=== PATIENT | female | born 1975 | race Caucasian/White ===

== ENCOUNTER 2017-11-28 09:37 | Emergency (ER) | payer MEDICAID, SELFPAY ==
[2017-11-28 09:38] VITALS: BP 110/70; PULSE 93; RESP 18; TEMP 36.6; O2SAT 98; BMI 24.4
--- NOTE | 2017-11-28 09:56 | ED.VISSUMM ---
- ER Visit Summary Date of Service: 11/28/17 Chief Complaint: Hives and facial swelling this morning History of Present Illness: The patient is a 41 F who reports she has had hives since Saturday. She was seen at the [facility] on November 25. The documentation of the visit was read. She was treated with a Kenalog injection and tapering dose of prednisone. Patient states this morning she awoke with facial swelling and hives. She took a Benadryl tablet. The facial swelling and hives resolved but she is still complaining of itching. She denies any swelling of her lips, tongue or throat. She denied any change in voice or difficulty swallowing. She denies any chest pain or shortness of breath. She denied nausea, vomiting or diarrhea. She denies orthostatic symptoms. She is concerned because she has bruises. She is on no new medicine. She has not had any fruit, varies or shellfish in the past several days. Physical Examination: Vital signs are normal. She is not hypoxic. There is no evidence of angioedema. No hives are noted. Head is atraumatic normocephalic. Pupils are equal round reactive. Extraocular muscles are intact. TMs are pearly white with landmarks noted. Nares patent with no drainage. Posterior pharynx without erythema or exudate. Uvula is midline. There is no dysphonia or dysphasia. Trachea is midline. There is no stridor with auscultation of the neck. Heart is regular without murmur, gallop or rub. S1 and S2 are normal. Lungs are clear to auscultation with good movement of air bilaterally. Abdomen is soft nontender. Patient has multiple areas of excoriation and bruising secondary to scratching. There is no evidence of hives or angioedema. Test Results: Count is 13.8 with no eosinophilia. Hepatic profile is normal. Emergency Department Course and Treatment: CBC was obtained to assess platelet count and to determine if there is any eosinophilia. Because she reports darker colored urine Paddock was obtained to assess ALT AST and bilirubin. Treatment Plan: Patient was instructed to keep a diary with regards to what she eats and when she develops hives. She was instructed to follow-up with her primary care physician. She was instructed to return if she has swelling of her lips, tongue or throat or any difficulty breathing. He was reevaluated and she has no rash and she is no longer itching. Disposition: Discharge to home in stable and improved condition Impression: Pruritus and hives of unknown etiology This note was generated with [employer] dictation software. It may contain incorrect words, spelling, and punctuation that were not noted in review of the chart prior to signing ED Disposition - Plan for ED Patient: Disposition: Home or Assisted Living Chief Complaint: Allergic Reaction Instructions: ED Urticaria Referrals: Camila Mercado MD [Primary Care Provider] - 1 Week
--- NOTE | 2017-11-28 10:00 | ED.DCSUM_ITS ---
- ER Visit Summary Date of Service: 11/28/17 Chief Complaint: Hives and facial swelling this morning History of Present Illness: The patient is a 41 F who reports she has had hives since Saturday. She was seen at the [facility] clinic on November 25. The documentation of the visit was read. She was treated with a Kenalog injection and tapering dose of prednisone. Patient states this morning she awoke with facial swelling and hives. She took a Benadryl tablet. The facial swelling and hives resolved but she is still complaining of itching. She denies any swelling of her lips, tongue or throat. She denied any change in voice or difficulty swallowing. She denies any chest pain or shortness of breath. She denied nausea, vomiting or diarrhea. She denies orthostatic symptoms. She is concerned because she has bruises. She is on no new medicine. She has not had any fruit, varies or shellfish in the past several days. Physical Examination: Vital signs are normal. She is not hypoxic. There is no evidence of angioedema. No hives are noted. Head is atraumatic normocephalic. Pupils are equal round reactive. Extraocular muscles are intact. TMs are pearly white with landmarks noted. Nares patent with no drainage. Posterior pharynx without erythema or exudate. Uvula is midline. There is no dysphonia or dysphasia. Trachea is midline. There is no stridor with auscultation of the neck. Heart is regular without murmur, gallop or rub. S1 and S2 are normal. Lungs are clear to auscultation with good movement of air bilaterally. Abdomen is soft nontender. Patient has multiple areas of excoriation and bruising secondary to scratching. There is no evidence of hives or angioedema. Test Results: Count is 13.8 with no eosinophilia. Hepatic profile is normal. Emergency Department Course and Treatment: CBC was obtained to assess platelet count and to determine if there is any eosinophilia. Because she reports darker colored urine Paddock was obtained to assess ALT AST and bilirubin. Treatment Plan: Patient was instructed to keep a diary with regards to what she eats and when she develops hives. She was instructed to follow-up with her primary care physician. She was instructed to return if she has swelling of her lips, tongue or throat or any difficulty breathing. He was reevaluated and she has no rash and she is no longer itching. Disposition: Discharge to home in stable and improved condition Impression: Pruritus and hives of unknown etiology This note was generated with [employer] dictation software. It may contain incorrect words, spelling, and punctuation that were not noted in review of the chart prior to signing ED Disposition - Plan for ED Patient: Disposition: Home or Assisted Living Chief Complaint: Allergic Reaction Instructions: ED Urticaria Referrals: Camila Mercado MD [Primary Care Provider] - 1 Week
[2017-11-28 10:07] LABS: Absolute Lymphocyte Count 0.81 X10^3/ul (0.83-4.51); Basophil# 0.01 X10^3/uL; Basophil% 0.1 % (0-1); Hemoglobin 11.2 g/dl (12.0-15.0); Lymphocyte # 0.81 X10^3/ul (4.0); Lymphocyte % 5.9 % (19-41); Mean Corp Hgb Conc 33.9 g/gl (32-36); Mean Corpuscular Hgb 32.5 pg (27.0-32.0); Mean Corpuscular Volume 95.7 fL (81-99); Mean Platelet Vol. 8.7 fl (6.2-12.0); Monocyte# 0.96 X10^3/uL; Neutrophil # 11.97 X10^3/uL (2.7-7.7); Neutrophil % 86.6 % (47-70); Platelet Count 338 K/mm3 (150-450); RBC Distribution Width CV 13.6 % (11.6-14.6); RBC Distribution Width SD 45.2 fl (35.1-43.9); Red Blood Count 3.45 M/mm3 (4.2-5.4); White Blood Count 13.8 K/mm3 (4.4-11.0)
[2017-11-28 10:08] LABS: POSITIVE COUNT NO; POSITIVE DIFFERENTIAL NO; POSITIVE MORPHOLOGY NO
[2017-11-28 10:24] LABS: AST(SGOT) 16 U/L (15-37); Alanine Aminotransfer ALT/SGPT 24 U/L (13-56); Alkaline Phosphatase 73 U/L (45-117); Globulin 3.1 g/dL (2.2-4.2); Protein, Total 6.1 g/dL (6.4-8.2)
== END 2017-11-28 12:25 | disposition home or self-care (01) ==
PROVIDERS: Emergency Provider Emergency Medicine; Family Provider Family Medicine; PCP Family Medicine
DX: L29.9 Pruritus, unspecified (principal); L50.9 Urticaria, unspecified; Z72.0 Tobacco use; Z79.899 Other long term (current) drug therapy
CPT/HCPCS: 80076; 85025; 99282

== ENCOUNTER 2018-02-12 19:23 | Emergency (ER) | payer MEDICAID, SELFPAY ==
[2018-02-12 19:23] VITALS: BP 139/75; PULSE 111; RESP 16; TEMP 36.9; O2SAT 98; BMI 23.8
--- NOTE | 2018-02-12 19:36 | CT_ITS ---
STUDY: CT ABDOMEN AND PELVIS WITH CONTRAST REASON FOR EXAM: Female, 42 years old. Left lower quadrant abdominal pain RADIATION DOSAGE (If Supplied By Facility): CTDIvol = ( 8.89 ) mGy, DLP = ( 373.12 ) mGycm TECHNIQUE: Transaxial images were obtained from the dome of the diaphragm to the symphysis pubis without oral contrast. 100ML ml of Isovue 300 contrast was administered. Sagittal and coronal images were reconstructed. Individualized dose optimization techniques were used for this CT. COMPARISON: None. FINDINGS: Patchy groundglass opacities at the lung bases. The visualized portions of the heart are within normal limits. Normal liver. Normal gallbladder and extrahepatic biliary system. Normal spleen. Normal pancreas. Normal bilateral adrenal glands. Normal right kidney. Normal left kidney. Normal visualized stomach. Normal small intestine. Normal colon. The appendix is visualized and appears normal. Normal abdominal aorta. Normal inferior vena cava. Normal retroperitoneum. Normal urinary bladder. Bilateral effusions or tubes. Normal abdominal wall. Normal osseous structures. CT/Abdomen/Pelvis WITH Contrast IMPRESSION: No acute disease to explain left lower quadrant pain. Electronically Signed: Marino Miranda MD at 22:00 EDT , Service support ,
--- NOTE | 2018-02-12 19:36 | ED.VISSUMM ---
- ER Visit Summary Date of Service: 02/12/18 Chief Complaint: Abdominal pain History of Present Illness: The patient is a 42 F presenting with abdominal pain. She states this started this afternoon. She has pain in the epigastric and left upper and lower quadrant. She denies nausea, vomiting, diarrhea, constipation. Denies urinary complaints. Denies possibility of . Denies fever. She has not had these symptoms in the past. She states she occasionally drinks alcohol, she is a smoker. Physical Examination: Vitals are stable. Patient is afebrile. Alert no acute distress. HEENT exam is unremarkable. Neck is supple. Lungs are clear and equal bilaterally. Heart is regular and tachycardic Abdomen is soft epigastric and left upper and left lower quadrant tenderness, no rebound or guarding. Extremities are unremarkable. Skin is warm and dry. No focal neurologic deficit. Remainder of exam is unremarkable. Emergency Department Course and Treatment: Patient given IV fluids, morphine, Zofran. CBC chemistries normal except for potassium 3.1. She is given potassium oral replacement. Liver lipase are normal. Urinalysis is unremarkable. CT of the abdomen pelvis with IV and oral contrast shows no acute process. On reevaluation, she is resting comfortably. She is given a prescription for Pepcid. She is advised to follow-up with her primary care physician. She is advised return to the ED for worsening complaints. Disposition: Discharge home Impression: Abdominal pain This note was generated with [employer] dictation software. It may contain incorrect words, spelling, and punctuation that were not noted in review of the chart prior to signing ED Disposition - Plan for ED Patient: Chief Complaint: Abd Pain Referrals: Camila Mercado MD [NON-STAFF] -
[2018-02-12] MEDS: Morphine 4 MG/ML Syringe IV ×2 (19:49→20:20)
[2018-02-12] MEDS: 0.9% Normal Saline 1,000 ML 1000 ML IV (19:49)
[2018-02-12] MEDS: Ondansetron 4 MG/2 ML Vial IV (19:50)
[2018-02-12 20:02] LABS: Absolute Lymphocyte Count 2.73 X10^3/ul (0.83-4.51); Absolute Neutrophil Count 4.9 X10^3/uL (2.0-7.7); Basophil# 0.05 X10^3/uL; Basophil% 0.6 % (0-1); Eosinophil# 0.35 X10^3/uL; Hematocrit 38.4 % (37-47); Hemoglobin 12.9 g/dl (12.0-15.0); Lymphocyte # 2.73 X10^3/ul (4.0); Lymphocyte % 31.4 % (19-41); Mean Corp Hgb Conc 33.6 g/gl (32-36); Mean Corpuscular Hgb 31.7 pg (27.0-32.0); Mean Corpuscular Volume 94.3 fL (81-99); Mean Platelet Vol. 9.3 fl (6.2-12.0); Monocyte# 0.68 X10^3/uL; Monocyte% 7.8 % (0-10); Neutrophil # 4.87 X10^3/uL (2.7-7.7); Neutrophil % 56.1 % (47-70); Platelet Count 255 K/mm3 (150-450); RBC Distribution Width CV 13.7 % (11.6-14.6); RBC Distribution Width SD 47.6 fl (35.1-43.9); Red Blood Count 4.07 M/mm3 (4.2-5.4); White Blood Count 8.7 K/mm3 (4.4-11.0)
[2018-02-12 20:03] LABS: POSITIVE COUNT NO; POSITIVE DIFFERENTIAL NO
[2018-02-12 20:04] LABS: POSITIVE MORPHOLOGY NO
[2018-02-12 20:17] LABS: AST(SGOT) 19 U/L (15-37); Alanine Aminotransfer ALT/SGPT 19 U/L (13-56); Albumin, Serum 3.6 g/dL (3.2-5.0); Alkaline Phosphatase 65 U/L (45-117); Anion Gap 6 (5-15); BUN 8 mg/dL (7-18); BUN/Creat Ratio 9.3 RATIO (10-20); Bilirubin, Direct 0.11 mg/dL (0.00-0.30); Calcium,Total 8.9 mg/dL (8.5-10.1); Chloride 107 mmol/L (98-107); Creatinine, Serum 0.86 mg/dL (0.55-1.02); EST Glomerular Filtration Rate 78 mL/min (>60); Est Glom Filt Rate - Afr Amer 94 mL/min (>60); Estimated Creatinine Clearance 62.46 ml/min; Globulin 3.2 g/dL (2.2-4.2); Glucose 90 mg/dL (74-106); Lipase 206 U/L (73-393); Potassium 3.1 mmol/L (3.5-5.1); Protein, Total 6.8 g/dL (6.4-8.2); Sodium Level 141 mmol/L (136-145)
[2018-02-12 20:52] LABS: Bacteria 0 SEEN /hpf (None Seen); Color, Urine Straw (Yellow); Glucose, Dipstick Normal (Normal); Ketone-Dipstick Negative (Negative); Leukocyte Esterase-Dipstick Negative /ul (Negative); Mucous, Urine 0 SEEN /hpf (<or=2+); Nitrite-Dipstick Negative (Negative); Occult Blood-Urine Negative /ul (Negative); Protein-Dipstick Negative (Negative); Red Blood Cells-Urine 0 SEEN /hpf (0-5); Urine Bilirubin Dipstick Negative (Negative); Urine Clarity Clear (Clear); Urine Urobilinogen Normal (Normal); White Blood Cells 0 SEEN /hpf (0-5)
[2018-02-12 21:04] LABS: Squamous Epithelial Cells - UA 0-5 SEEN /hpf (5-10)
[2018-02-12 21:32] VITALS: BP 107/74; RESP 16
--- NOTE | 2018-02-12 22:16 | ED.DEP ---
ED Disposition - Plan for ED Patient: Chief Complaint: Abd Pain Instructions: ED Abdominal Pain Unkn Cause Prescriptions: Famotidine [Pepcid] 20 mg PO BID #28 tablet Referrals: Camila Mercado MD [NON-STAFF] - Cornelius Erwin MD [Primary Care Provider] -
[2018-02-12 22:25] VITALS: BP 102/68
== END 2018-02-12 22:27 | disposition home or self-care (01) ==
LOC: ED 19:42
PROVIDERS: Emergency Provider Emergency Medicine; Family Provider Family Medicine; PCP Family Medicine
DX: R10.13 Epigastric pain (principal); R10.32 Left lower quadrant pain; R10.12 Left upper quadrant pain; G89.29 Other chronic pain; M54.2 Cervicalgia; F17.200 Nicotine dependence, unspecified, uncomplicated; Z79.899 Other long term (current) drug therapy
CPT/HCPCS: 74177; 80048; 80076; 81001; 83690; 85025; 96361; 96374; 96375; 96376; 99284; J7030; Q9967; J2405

== ENCOUNTER 2018-09-22 14:53 | Emergency (ER) | payer MEDICAID, SELFPAY ==
[2018-09-22 14:54] VITALS: BP 117/63; PULSE 100; RESP 16; TEMP 36.4; O2SAT 97; BMI 24.4
[2018-09-22 15:16] VITALS: O2SAT 97
--- NOTE | 2018-09-22 15:19 | EKG12_ITS ---
Test Reason : COUGH Blood Pressure : / mmHG Vent. Rate : 080 BPM Atrial Rate : 080 BPM P-R Int : 158 ms QRS Dur : 096 ms QT Int : 390 ms P-R-T Axes : 078 070 049 degrees QTc Int : 449 ms Normal sinus rhythm Normal ECG Confirmed by FABIAN BAUMAN, LAURIE ([id number]), editorial project manager BRAEDEN TRAYLOR ([id number]) on 09/26/2018 10:47:38 AM Referred By: RYAN Confirmed By:LAURIE PERALTA MD
--- NOTE | 2018-09-22 15:25 | ED.DCSUM_ITS ---
- ER Visit Summary Date of Service: 09/22/18 Chief Complaint: [] Cough subcostal chest tightness for 2 weeks History of Present Illness: The patient is a 42 F [] she reports cough for 2 weeks productive with occasional thick mucus and a sense of subcostal chest tightness, no fever no abdominal pain history of MT PE DVT she indicates she is here with her teenage daughter decided to check him to be evaluated, she does smoke and has no history of COPD or asthma does report distant history of asthma resting comfortably bed now no distress Physical Examination: [] 122/80, 100% pulse ox afebrile General, no distress resting comfortably HEENT is generally unremarkable The neck is supple no adenopathy Cardiovascular, regular rate and rhythm Lungs, clear bilateral there is minimal scattered wheezing good excursion no distress Abdomen, soft nontender she indicates that time she has had what she describes as a subcostal sense of tightness in her chest palpation of the abdomen is completely nontender palpation of the chest is unremarkable Extremities, no clubbing cyanosis or edema Neurologic, awake alert answering questions appropriately moving all 4 extremities Test Results: [] Emergency Department Course and Treatment: [] Complaint screening labs obtained chest x-ray D-dimer returned slightly elevated at 0.55 she really have no risk factors for DVT or PE given that test result CTA was done that was unremarkable for signs of pneumonia dissection or PE all of her other labs are generally unremarkable white count 15,000 EKG showed a sinus rhythm nothing acute I have explained test results to her now is from the cough is likely from a URI there is no signs of active pneumonia or pulmonary infectious process she will be started on inhaler follow-up with her physicians and return for change in symptoms she is comfortable with this plan Treatment Plan: [] Disposition: [] Home stable Impression: [] Cough for 2 weeks URI This note was generated with [employer] software. It may contain incorrect words, spelling, and punctuation that were not noted in review of the chart prior to signing ED Disposition - Plan for ED Patient: Chief Complaint: Cough Referrals: Cornelius Erwin MD [Primary Care Provider] -
[2018-09-22 15:32] VITALS: PULSE 82; RESP 14
[2018-09-22] MEDS: Ipratropium/Albuterol Sulfate 3 ML AMPUL.NEB INHALATION (15:32)
[2018-09-22] MEDS: 0.9% Normal Saline 1,000 ML 150 ML IV (15:36)
--- NOTE | 2018-09-22 15:45 | RAD_ITS ---
STUDY: X-RAY CHEST REASON FOR EXAM: Female, 42 years old. Cough TECHNIQUE: PA and lateral views of the chest. COMPARISON: 07/28/2017 FINDINGS: EKG leads overlie the chest The lungs are clear and expanded. There is no demonstrated pleural abnormality. Normal size heart. Normal mediastinum and beau. Normal visualized pulmonary arteries. Normal visualized aortic arch and descending thoracic aorta. Normal visualized thoracic spine. Normal visualized ribs, clavicles, and shoulders. There is no demonstrated abnormality of the visualized soft tissue structures of the upper abdomen. RAD/Chest PA and Lateral IMPRESSION: Normal x-ray examination of the chest. Electronically Signed: Jorge Gordon MD at 16:00 EST , Service support ,
[2018-09-22 15:47] LABS: Absolute Neutrophil Count 11.5 X10^3/uL (2.0-7.7); Basophil# 0.07 X10^3/uL; Basophil% 0.5 % (0-1); Eosinophil# 0.38 X10^3/uL; Eosinophils% 2.5 % (0-5); Hematocrit 39.3 % (37-47); Lymphocyte % 15.1 % (19-41); Mean Corp Hgb Conc 33.1 g/gl (32-36); Mean Corpuscular Hgb 31.5 pg (27.0-32.0); Mean Corpuscular Volume 95.2 fL (81-99); Mean Platelet Vol. 9.1 fl (6.2-12.0); Monocyte# 0.92 X10^3/uL; Neutrophil # 11.53 X10^3/uL (2.7-7.7); Neutrophil % 75.8 % (47-70); Platelet Count 276 K/mm3 (150-450); RBC Distribution Width CV 13.8 % (11.6-14.6); RBC Distribution Width SD 47.8 fl (35.1-43.9); Red Blood Count 4.13 M/mm3 (4.2-5.4); White Blood Count 15.2 K/mm3 (4.4-11.0)
[2018-09-22 15:48] LABS: POSITIVE COUNT NO; POSITIVE DIFFERENTIAL NO; POSITIVE MORPHOLOGY NO
[2018-09-22 16:04] LABS: Anion Gap 9 (5-15); BUN 12 mg/dL (7-18); BUN/Creat Ratio 12.8 RATIO (10-20); Calcium,Total 8.7 mg/dL (8.5-10.1); Chloride 107 mmol/L (98-107); Creatinine, Serum 0.93 mg/dL (0.55-1.02); EST Glomerular Filtration Rate 70 mL/min (>60); Est Glom Filt Rate - Afr Amer 85 mL/min (>60); Estimated Creatinine Clearance 57.76 ml/min; Glucose 107 mg/dL (74-106); Potassium 3.2 mmol/L (3.5-5.1); Sodium Level 142 mmol/L (136-145)
[2018-09-22 16:07] LABS: D-Dimer Quantitative (DVT/PE) 0.55 FEU/ug/m (0.27-0.49)
--- NOTE | 2018-09-22 16:08 | ED.RN ---
D-DIMER 0.55. AWARE.
--- NOTE | 2018-09-22 16:11 | CT_ITS ---
STUDY: CTA CHEST REASON FOR EXAM: Female, 42 years old. Worsening cough, chest pain, elevated d-dimer RADIATION DOSAGE (If Supplied By Facility): CTDIvol = ( 4.37 ) mGy, DLP = ( 154.90 ) mGycm TECHNIQUE: The examination was performed with the intravenous administration of 75ml ml of Isovue 370 contrast material. Post-processing of the angiographic images was performed, with multiplanar reformation and 3D reconstruction. Individualized dose optimization techniques were used for this CT. COMPARISON: None. FINDINGS: Normal enhancement of the main pulmonary artery and right and left pulmonary arteries. Normal enhancement of the bilateral peripheral pulmonary arteries. There is no demonstrated pulmonary embolism. Normal thoracic aorta and visualized great vessels. There is no demonstrated aortic dissection. Normal heart and pericardium. Normal mediastinum. Normal hilar regions. Normal visualized trachea and bronchi. The lungs are well expanded. Normal pulmonary parenchyma. Normal pleura. Normal chest wall structures. Normal osseous structures. Normal visualized upper abdomen. CT/CTA Chest W/WO Contrast IMPRESSION: Normal CTA chest examination, without a demonstrated pulmonary embolism or arterial dissection. Electronically Signed: Jorge Gordon MD at 17:40 EST , Service support ,
[2018-09-22 16:18] LABS: BNP,B-Type NATRIURETIC PEPTIDE 17.2 pg/mL (0-100)
[2018-09-22 17:01] VITALS: PULSE 79; RESP 17; O2SAT 100
[2018-09-22 17:14] VITALS: BP 104/60
--- NOTE | 2018-09-22 17:53 | ED.DEP ---
ED Disposition - Plan for ED Patient: Chief Complaint: Cough Prescriptions: Albuterol Inhaler [Ventolin Hfa] 1 - 2 puff INHALATION Q4H PRN PRN #1 inhaler PRN Reason: Wheezing Referrals: Cornelius Erwin MD [Primary Care Provider] -
--- NOTE | 2018-09-22 17:56 | ED.DEP ---
ED Disposition - Plan for ED Patient: Chief Complaint: Cough Instructions: ED Upper Resp Infec No Abx Tx Prescriptions: Albuterol Inhaler [Ventolin Hfa] 1 - 2 puff INHALATION Q4H PRN PRN #1 inhaler PRN Reason: Wheezing Referrals: Cornelius Erwin MD [Primary Care Provider] -
[2018-09-22 18:11] VITALS: BP 98/60; PULSE 100; RESP 25; O2SAT 98
--- OUTSIDE RECORDS SUMMARY | 2018-11-08 21:49 | XMS RPT_ITS ---
:1975 Author Organization OHIP Support Name Relationship Address Phone DEEPAK FLORES Unavailable [address] + [place] [address] VASILIY, BILL Unavailable [address] + [place] [address] UE Unavailable Unavailable Unavailable DEEPAK FLORES Unavailable [address] + [place] [address] VASILIY, BILL Unavailable [address] + [place] [address] UE Unavailable Unavailable Unavailable DEEPAK FLORES Unavailable [address] + [place] [address] [facility] Unavailable [address], [address] + [place] [address] VASILIY, BILL Unavailable [address] + [place] [address] DEEPAK FLORES Unavailable [address] + [place] [address] [facility] Unavailable [address], [address] + [place] [address] VASILIY, BILL Unavailable [address] + [place] [address] DEEPAK FLORES Unavailable [address] + [place] [address] [facility] Unavailable [address], [address] + [place] [address] VASILIY, BILL Unavailable [address] + [place] [address] BIERLEIN, DEEPAK Unavailable [address] + [place] [address] [facility] Unavailable [address], [address] + [place] [address] VASILIY, BILL Unavailable [address] + [place] [address] DEEPAK FLORES Unavailable [address] + [place] [address] [facility] Unavailable [address] + [address] [address] VASILIY, BILL Unavailable [address] + [place] [address] Care Team Providers Name Role Phone SLICK ERWIN) Attending Unavailable SLICK ERWIN) Referring Unavailable TALIA ALICEA Attending Unavailable CHAITANYA PRAKASH Marine Attending Unavailable TALIA ALICEA Referring Unavailable CHAITANYA, PRAKASH C Referring Unavailable CHAITANYA, PRAKASH C Attending Unavailable CHAITANYA, PRAKASH C Referring Unavailable CHAITANYA, PRAKASH C Referring Unavailable CHAITANYA, PRAKASH C Referring Unavailable DORSEYMANUELI Attending Unavailable CHAITANYA, PRAKASH C Referring Unavailable CHAITANYA, PRAKASH C Admitting Unavailable CHAITANYA, PRAKASH C Attending Unavailable JORDYN LOPEZ (PA-C) Attending Unavailable SLICK ERWIN) Attending Unavailable CHAITANYA, PRAKASH C Attending Unavailable SLICK ERWIN) Referring Unavailable BRITTANY WARD (POURER CRANE LADLE) Attending Unavailable SLICK ERWIN) Attending Unavailable SLICK ERWIN) Referring Unavailable Cornelius Erwin Primary Care Unavailable Elizabeth Monk Attending Unavailable Cornelius Erwin Primary Care Unavailable Cartagena, Caio Attending Unavailable Rogerio Knutson Attending Unavailable Rogelio, Camila Referring Unavailable Mercado, Camila Primary Care Unavailable Mercado, Camila Primary Care Unavailable Cartagena, Caio Attending Unavailable Bal Saucedo Attending Unavailable Camila Mercado Referring Unavailable Rogelio, Camila Primary Care Unavailable Judith Macario Attending Unavailable Cornelius Erwin Primary Care Unavailable Bal Saucedo Attending Unavailable Rogelio, Camila Referring Unavailable Mercado, Camila Primary Care Unavailable PROBLEMS PROBLEMS DATE TYPE CONDITION / CODE ATTENDING STATUS SOURCE 01/20/2018 Active Encounter for other DORSEY, YAMILKA Active [facility] preprocedural [place] examination / Repository Z01.818(ICD-10) 01/20/2018 Active Unknown / PRAKASH GALE Active [facility] UNK(Unknown) [place] Repository 01/01/2018 Active Anal fistula / NA Active [facility] K60.3(ICD-10) [place] Repository 01/16/2018 Unknown J02.9 - Acute Bal Saucedo Active [place] pharyngitis, Community unspecified / Hospital J02.9(ICD-10) Repository 01/16/2018 Unknown B37.0 - Candidal Bal Saucedo Active [place] stomatitis / Community B37.0(ICD-10) Hospital Repository 12/04/2017 Active Pruritus, NA Active [facility] unspecified / [place] L29.9(ICD-10) Repository 12/04/2017 Active Candidal stomatitis NA Active [facility] / B37.0(ICD-10) [place] Repository 03/04/2018 Unknown R21 - Rash and Rogerio Knutson Active [place] other nonspecific Community skin eruption / Hospital R21(ICD-10) Repository 03/04/2018 Unknown L25.9 - Unspecified Rogerio Knutson Active [place] contact dermatitis, Community unspecified cause / Hospital L25.9(ICD-10) Repository PROCEDURES PROCEDURES No Procedure Records FoundRESULTS RESULTS EMERGENCY DEPARTMENT Observed: 11/03/2018 Status: F Source: [place] SUMMARY 1:32 PM [facility] RE[facility] Medical Records Department [address] [place] [address] Emergency Department Summary 11/03/18 1326 MR#: [id number] Acct: [id number] Name: DALIA BELLA Rep #: [id number] : 1975 42 From: Caio Cartagena MD PCP: Cornelius Erwin MD Status: PRE ER - ER Visit Summary Date of Service: 11/03/18 Chief Complaint: Instructed by spine surgeon to present to the emergency department History of Present Illness: The patient is a 42 F who sustained blunt head trauma on Saturday. There was no loss of conscious. She is not amnestic. He is on no anticoagulant. She does report transient blurred vision, which has resolved. She reports trouble with sleeping. She reports tingling in her hands and feet, which is a chronic condition. There is no change. She denied nausea or vomiting. She denies change in color urine. She has no other complaints. Physical Examination: Vital signs noted normal. Head is atraumatic normocephalic. Pupils are equal round reactive. Extraocular muscles are intact. TMs are pearly white with landmarks noted. Nares patent with no drainage. Posterior pharynx without erythema or exudate. Uvula is midline. There is no dysphonia or dysphasia. Trachea is midline. There is no stridor with auscultation of the neck. There is no midline neck pain. Heart is regular without murmur, gallop or rub. S1 and S2 are normal. Lungs are clear to auscultation with good movement of air bilaterally. Abdomen soft nontender. GCS is 15. Patient is alert and oriented 3. Motor is 5/5. Sensation is intact. DTRs are symmetric without clonus or Babinski. Cranial nerves II through XII are intact. Finger to nose to finger was performed adequately. Test Results: None were obtained Emergency Department Course and Treatment: Based on the Faulkner CT head rule and the [place] rule radiologic imaging is not indicated. Since she did not have neck pain initially radiologic imaging of the neck is not required either. Treatment Plan: Ice, avoid movement that causes pain and anti-inflammatory Disposition: Discharged home in stable condition Impression: 1. Concussion without loss of consciousness 2. Cervical strain secondary to blunt injury initial encounter This note was generated with TutorialTab dictation software. It may contain incorrect words, spelling, and punctuation that were not noted in review of the chart prior to signing ED Disposition - Plan for ED Patient: Disposition: Home or Assisted Living Chief Complaint: Fall Instructions: ED Concussion, ED Sprain Strain Neck Referrals: Cornelius Erwin MD [Primary Care Provider] - As Needed What to do if you have Problems For any increased pain, shortness of breath, bleeding, nausea or vomiting, chest pain, or any unexpected problems, contact your Primary Care Provider. Call [facility] ([phone]) or report to the closest Emergency Room. Call 911 if necessary. 11/03/18 1172 <Electronically signed by Caio Cartagena MD> Date Caio Mcintosh Signature (If Indicated): Date CC: Cornelius Erwin MD 12 LEAD ELECTROCARDIOGRAM Observed: 09/26/2018 Status: F Source: [place] 10:48 AM [facility] Cardiovascular Services [address] [place] [address] 12 Lead EKG 09/22/18 1542 MR#: [id number] Acct: [id number] Name: DALIA BELLA Rep #: [id number] : 1975 42 From: Blake Lundberg MD Attending Dr: Status: DEP ER Ordering Dr: Elizabeth Monk MD Date: 09/22/18 Location: ED Sex: F C Admitted: Test Reason : COUGH Blood Pressure : / mmHG Vent. Rate : 080 BPM Atrial Rate : 080 BPM P-R Int : 158 ms QRS Dur : 096 ms QT Int : 390 ms P-R-T Axes : 078 070 049 degrees QTc Int : 449 ms Normal sinus rhythm Normal ECG Confirmed by FABIAN BAUMAN, BLAKE ([id number]), video editor BRAEDEN TRAYLOR ([id number]) on 09/26/2018 10:47:38 AM Referred By: SJ Confirmed By:BLAKE LUNDBERG MD 09/26/18 1047 Date Blake Lundberg MD CC: MD Miles Monk; Cornelius Erwin MD Signed EMERGENCY DEPARTMENT Observed: 09/22/2018 Status: F Source: [place] SUMMARY 11:00 PM [facility] Medical Records Department [address] [place] [address] Emergency Department Summary 09/22/18 1522 MR#: [id number] Acct: [id number] Name: DALIA BELLA Rep #: [id number] : 1975 42 From: Elizabeth Monk MD PCP: Cornelius Erwin MD Status: DEP ER - ER Visit Summary Date of Service: 09/22/18 Chief Complaint: [] Cough subcostal chest tightness for 2 weeks History of Present Illness: The patient is a 42 F [] she reports cough for 2 weeks productive with occasional thick mucus and a sense of subcostal chest tightness, no fever no abdominal pain history of [place] PE DVT she indicates she is here with her teenage daughter decided to check him to be evaluated, she does smoke and has no history of COPD or asthma does report distant history of asthma resting comfortably bed now no distress Physical Examination: [] 122/80, 100% pulse ox afebrile General, no distress resting comfortably HEENT is generally unremarkable The neck is supple no adenopathy Cardiovascular, regular rate and rhythm Lungs, clear bilateral there is minimal scattered wheezing good excursion no distress Abdomen, soft nontender she indicates that time she has had what she describes as a subcostal sense of tightness in her chest palpation of the abdomen is completely nontender palpation of the chest is unremarkable Extremities, no clubbing cyanosis or edema Neurologic, awake alert answering questions appropriately moving all 4 extremities Test Results: [] Emergency Department Course and Treatment: [] Complaint screening labs obtained chest x-ray D-dimer returned slightly elevated at 0.55 she really have no risk factors for DVT or PE given that test result CTA was done that was unremarkable for signs of pneumonia dissection or PE all of her other labs are generally unremarkable white count 15,000 EKG showed a sinus rhythm nothing acute I have explained test results to her now is from the cough is likely from a URI there is no signs of active pneumonia or pulmonary infectious process she will be started on inhaler follow-up with her physicians and return for change in symptoms she is comfortable with this plan Treatment Plan: [] Disposition: [] Home stable Impression: [] Cough for 2 weeks URI This note was generated with View3ation software. It may contain incorrect words, spelling, and punctuation that were not noted in review of the chart prior to signing ED Disposition - Plan for ED Patient: Chief Complaint: Cough Referrals: Cornelius Erwin MD [Primary Care Provider] - What to do if you have Problems For any increased pain, shortness of breath, bleeding, nausea or vomiting, chest pain, or any unexpected problems, contact your Primary Care Provider. Call [facility] ([phone]) or report to the closest Emergency Room. Call 911 if necessary. 09/22/18 2300 <Electronically signed by Elizabeth Monk MD> Date Elizabeth Monk MD Cosigner Signature (If Indicated): Date CC: Cornelius Erwin MD DISCHARGE INSTRUCTION Observed: 09/22/2018 Status: F Source: [place] 5:57 PM [facility] Medical Records Department [address] [facility] [place] [place] [address] Discharge Instruction 09/22/181755 MR#: [id number] Acct: [id number] Name: DALIA BELLA Rep #: [id number] : 1975 42 From: Elizabeth Monk MD PCP: Cornelius Erwin MD Status: REG ER ED Disposition - Plan for ED Patient: Chief Complaint: Cough Instructions: ED Upper Resp Infec No Abx Tx Prescriptions: Albuterol Inhaler [Ventolin Hfa] 1 - 2 puff INHALATION Q4H PRN PRN #1 inhaler PRN Reason: Wheezing Referrals: Cornelius Erwin MD [Primary Care Provider] - What to do if you have Problems For any increased pain, shortness of breath, bleeding, nausea or vomiting, chest pain, or any unexpected problems, contact your Primary Care Provider. Call [facility] ([phone]) or report to the closest Emergency Room. Call 911 if necessary. 09/22/18 1757 <Electronically signed by Elizabeth Monk MD> Date Elizabeth Monk MD Cosigner Signature (If Indicated): Date _ CC: Cornelius Erwin MD DISCHARGE INSTRUCTION Observed: 09/22/2018 Status: F Source: [place] 5:54 PM [facility] Medical Records Department [address] [place] [address] Discharge Instruction 09/22/181752 MR#: [id number] Acct: [id number] Name: DALIA BELLA Rep #: [id number] : 1975 42 From: Elizabeth Monk MD PCP: Cornelius Erwin MD Status: REG ER ED Disposition - Plan for ED Patient: Chief Complaint: Cough Prescriptions: Albuterol Inhaler [Ventolin Hfa] 1 - 2 puff INHALATION Q4H PRN PRN #1 inhaler PRN Reason: Wheezing Referrals: Cornelius Erwin MD [Primary Care Provider] - What to do if you have Problems For any increased pain, shortness of breath, bleeding, nausea or vomiting, chest pain, or any unexpected problems, contact your Primary Care Provider. Call [facility] ([phone]) or report to the closest Emergency Room. Call 911 if necessary. 09/22/181753 <Electronically signed by Elizabeth Monk MD> Date Elizabeth Monk MD Cosigner Signature (If Indicated): Date CC: Cornelius Erwin MD CTA CHEST W/WO Observed: 09/22/2018 Status: F Source: [place] CONTRAST 4:12 PM [facility] Imaging [place] [address] CTA Chest W/WO Contrast MR#: [id number] Acct: [id number] Name: DALIA BELLA Rep #: [id number] : 1975 F 42 From: Steve Gordon MD PCP: Cornelius Erwin MD Status: REG ER Study: CTA Chest W/WO Contrast Date of Exam: 09/22/18 Exam# [id number] Ordering Dr: Elizabeth Monk MD STUDY: CTA CHEST REASON FOR EXAM: Female, 42 years old. Worsening cough, chest pain, elevated d-dimer RADIATION DOSAGE (If Supplied By Facility): CTDIvol = ( 4.37 ) mGy, DLP = ( 154.90 ) mGycm TECHNIQUE: The examination was performed with the intravenous administration of 75ml ml of Isovue 370 contrast material. Post-processing of the angiographic images was performed, with multiplanar reformation and 3D reconstruction. Individualized dose optimization techniques were used for this CT. COMPARISON: None. FINDINGS: Normal enhancement of the main pulmonary artery and right and left pulmonary arteries. Normal enhancement of the bilateral peripheral pulmonary arteries. There is no demonstrated pulmonary embolism. Normal thoracic aorta and visualized great vessels. There is no demonstrated aortic dissection. Normal heart and pericardium. Normal mediastinum. Normal hilar regions. Normal visualized trachea and bronchi. The lungs are well expanded. Normal pulmonary parenchyma. Normal pleura. Normal chest wall structures. Normal osseous structures. Normal visualized upper abdomen. CT/CTA Chest W/WO Contrast IMPRESSION: Normal CTA chest examination, without a demonstrated pulmonary embolism or arterial dissection. Electronically Signed: Jorge Gordon MD at 17:40 EST , Service support , CC: MD Miles Monk; Cornelius Erwin MD Cougar Hunter: Signed CBC W/DIFF, AUTOMATED Collected: 09/22/2018 Status: F Source: [place] 3:40 PM [facility]POS[facility] TYPE CODE TESTS RESULT OUT OF RANGE REFERENCE UNITS LAB L100.1000 4.4-11.0 K/mm3 High WBC 15.2 LAB L100.1200 4.2-5.4 M/mm3 Low RBC 4.13 LAB L100.1300 12.0-15.0 g/dl Normal HGB 13.0 LAB L100.1400 37-47 % Normal HCT 39.3 LAB L100.1500 81-99 fL Normal MCV 95.2 LAB L100.1600 27.0-32.0 pg Normal MCH 31.5 LAB L100.1700 32-36 g/gl Normal MCHC 33.1 LAB L100.1810 11.6-14.6 % Normal RDW CV 13.8 LAB L100.1820 35.1-43.9 fl High RDW SD 47.8 LAB L100.1900 150-450 K/mm3 Normal PLT 276 LAB L100.2000 6.2-12.0 fl Normal MPV 9.1 LAB L100.2100 47-70 % High NEUT% 75.8 LAB L100.2200 19-41 % Low LY% 15.1 LAB L100.2300 0-10 % Normal MONO% 6.0 LAB L100.2400 0-5 % Normal EO% 2.5 LAB L100.2500 0-1 % Normal BASO% 0.5 LAB L100.2550 0.0-0.9 % Normal IM GRAN % 0.100 Result Comment: IG% - Immature Granulocytes (promyelocytes, myelocytes and metamyelocytes) > 1% indicates that a LEFT SHIFT is Present. LAB L100.2620 2.0-7.7 X10 3/uL High Absolute Neut 11.5 LAB L100.2720 0.83-4.51 X10 3/ul Normal Absolute Lymph 2.30 Performed By: #### L100.0100 #### [facility] [place], [address] BASIC METABOLIC Collected: 09/22/2018 Status: F Source: [place] PROFILE (BMP) 3:40 PM [facility] TYPE CODE TESTS RESULT OUT OF RANGE REFERENCE UNITS LAB L501.0100 74-106 mg/dL High GLU 107 Result Comment: Fasting Glucose result from 100 to 125 mg/dL suggests IMPAIRED HOMEOSTASIS per A.D.A. criteria. Please note revised GLUCOSE reference range effective 2017. LAB L501.1000 7-18 mg/dL Normal BUN 12 LAB L501.1100 0.55-1.02 mg/dL Normal CREAT,SERUM 0.93 Result Comment: The validity of the calculated GFR AND GFRAA in patients over 70 years has not been determined. Clinical correlation is essential. LAB L501.1110 >60 mL/min Normal EST GFR 70 Result Comment: Non- GFR Calc LAB L501.1115 >60 mL/min Normal EST GFR - AA 85 Result Comment: GFR Calc LAB L501.1255 ml/min Normal Estimated CRCL 57.76 LAB L501.1300 10-20 RATIO Normal BUN/CRE 12.8 LAB L501.2200 8.5-10 mg/dL Normal .1 CA 8.7 LAB L501.5300 136-14 mmol/L Normal 5 NA 142 LAB L501.5600 3.5-5. mmol/L Low 1 K 3.2 LAB L501.5900 98-107 mmol/L Normal CL 107 LAB L501.6100 21.0-3 mmol/L Normal 2.0 CO2 26.0 LAB L501.6200 5-15 Normal GAP 9 Performed By: #### L500.2500 #### [facility] [place], [address] D-DIMER QUANTITATIVE Collected: 09/22/2018 Status: F Source: [place] (DVT/PE) 3:40 PM [facility] TYPE CODE TESTS RESULT OUT OF RANGE REFERENCE UNITS LAB L300.8000 0.27-0.49 FEU/ug/m High alert D-DIMER 0.55 QUANT Result Comment: D-Dimer ELEVATED (>0.49): Additional studies and clinical assessments are indicated to conclude diagnosis of: Deep Vein Thrombosis (DVT) or Pulmonary Embolism (PE) CRITICAL VALUE VERIFIED. CALLED TO MODESTO MAGDALENO 09/22/18 Mendoza Taylor. RESULTS READ BACK BY MODESTO . Performed By: #### L300.8000 #### [facility] [address] [place], [address] BNP,B-TYPE NATRIURETIC Collected: 09/22/2018 Status: F Source: [place]PTIDE 3:40 PM [facility] TYPE CODE TESTS RESULT OUT OF RANGE REFERENCE UNITS LAB L503.6620 0-100 pg/mL Normal B-TYPE 17.2 SANJEEV PEP Performed By: #### L503.6620 #### [facility] [address] [place], [address] CHEST PA AND LATERAL Observed: 09/22/2018 Status: F Source: [place] 3:20 PM [facility] Imaging Services [address] [place] [address] Chest PA and Lateral MR#: [id number] Acct: [id number] Name: DALIA BELLA Bautista Rep #: [id number] : 1975 F 42 From: Steve Gordon MD PCP: Cornelius Erwin MD Status: REG ER Study: Chest PA and Lateral Date of Exam: 09/22/18 Exam# [id number] Ordering Dr: Elizabeth Monk MD STUDY: X-RAY CHEST REASON FOR EXAM: Female, 42 years old. Cough TECHNIQUE: PA and lateral views of the chest. COMPARISON: 07/28/2017 FINDINGS: EKG leads overlie the chest The lungs are clear and expanded. There is no demonstrated pleural abnormality. Normal size heart. Normal mediastinum and beau. Normal visualized pulmonary arteries. Normal visualized aortic arch and descending thoracic aorta. Normal visualized thoracic spine. Normal visualized ribs, clavicles, and shoulders. There is no demonstrated abnormality of the visualized soft tissue structures of the upper abdomen. RAD/Chest PA and Lateral IMPRESSION: Normal x-ray examination of the chest. Electronically Signed: Jorge Gordon MD at 16:00 EST , Service support , CC: MD Miles Monk; Cornelius Erwin MD Cougar Hunter: Signed CNOV Observed: 05/22/2018 Status: COMPLETED Source: [place] 1:00 PM [facility] REPOSITORY Office Visit (FAMPWS) VASILIYDALIA ([id number]) 1975 F Date Time Provider Department 05/22/18 1:00 PM [facility] today, we recorded the following information about you: Pulse Respiration Blood pressure Weight 72/minute 12/minute 96/66 55.8 kg Slick Erwin MD 05/22/2018 1:22 PM Signed Chief Complaint Patient presents with: F/U 3 Month HPI Daliadanial Bella is a 42 year old female who presents here today for 3 month follow up. Following up regularly with consumer marketing specialist for history of cervical neuritis and lumbosacral neuritis. Last appointment 2 months ago. Recommending slow titration of gabapentin for radicular symptoms. Offered epidural injections, which patient is refusing. Anxiety and depression symptoms well controlled on Zoloft daily. Denies side effects. No suicidal ideations or panic symptoms. Does not need refills today. Still smoking regularly. Refusing help with cessation. Due for screening mammogram since turning age 42. Denies breast lumps or bumps. Has not had pap smear since 2010. Needs referral to [facility] today. Due for repeat lipid panel and CMP. Past medical history, appointments, medications, allergies reviewed. Previous Medical History PAST MEDICAL HISTORY Diagnosis Date - Anal fistula - Anxiety - Backache, unspecified - Cervical neuritis - Depression - Headache(784.0) - Lumbosacral neuritis - Menorrhagia - Perianal cyst - Tobacco use Previous Surgical History PAST SURGICAL HISTORY Procedure Laterality Date - ESSURE 2010 - PAST SURGICAL HISTORY OF 06/2017 Excision of left perianal cystic lesion, exam under - PAST SURGICAL HISTORY OF Fallopian tube coils - PAST SURGICAL HISTORY OF 01/2018 repair of anal fissure Family History FAMILY HISTORY Problem Relation Age of Onset - Heart Mother 40 Double by-pass - Hypertension Father - Heart Maternal Grandmother - Alzheimer's Disease Maternal Grandmother Greatgrandmother - Diabetes Maternal Grandmother - Heart Maternal Grandfather - Diabetes Maternal Grandfather - Alzheimer's Disease Paternal Grandmother Greatgrandmother - Hypertension Paternal Grandfather - Hypertension Brother - Heart Maternal Uncle - Breast Cancer Paternal Aunt Two Aunts Patient Allergies ALLERGIES Allergen Reactions - Nystatin Altagracia Thinks it is what caused hives to start Current Medications Current Outpatient Prescriptions on File Prior to Visit: sertraline (ZOLOFT) 100 mg tablet TAKE ONE TABLET BY MOUTH ONCE DAILY cyclobenzaprine (FLEXERIL) 10 mg tablet TAKE 1 TABLET BY MOUTH ONCE DAILY AT BEDTIME gabapentin (NEURONTIN) 300 mg capsule Take 2 capsules by mouth three times daily for 90 days. acetaminophen (TYLENOL) 325 mg tablet Take 2 tablets by mouth every 6 hours as needed for Pain (for pain.). ibuprofen (MOTRIN) 600 mg tablet Take 1 tablet by mouth every 6 hours as needed for Pain. GINSENG ORAL Take 2 tablets by mouth once daily. sertraline (ZOLOFT) 100 mg tablet Take 1 tablet by mouth once daily. No current facility-administered medications on file prior to visit. 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[employer] Social History Main Topics Smoking status: Current Every Day Smoker Packs/day: 1.00 Years: 4.00 Types: Cigarettes Smokeless tobacco: Never Used Alcohol use: Yes Comment: occasionally Drug use: No Sexual activity: Yes Partners with: Male control/protection: Surgical Comment: essure Review of Symptoms REVIEW OF SYSTEMS GENERAL: No weight loss, malaise or fevers RESPIRATORY: Negative for cough, hemoptysis, wheezing, COPD, dyspnea or shortness of breath CARDIOVASCULAR: Negative for chest pain, leg swelling, hypertension, CHF or palpitations GI: No nausea, vomiting, or diarrhea SKIN: Negative for lesions, rash, and itching EXAM: BP 96/66 Pulse 72 Resp 12 Wt 55.8 kg (123 lb) BMI 24.02 kg/m? General Appearance: Well appearing, alert, in no acute distress, well-hydrated, well nourished.. Skin: Skin color, texture, turgor normal, no suspicious rashes or lesions. Neck: Supple, no adenopathy; thyroid symmetric, normal size. Lungs: Lungs clear to auscultation. No wheezing, rhonchi, rales. Heart: RRR without murmur, gallop, or rubs. No ectopy. Abdomen: Normal abdominal exam, Abdomen soft, non-tender. Bowel sounds normal. No masses, organomegaly. Extremities: No deformities, edema, skin discoloration, clubbing or cyanosis. Good capillary refill. . Health Maintenance List PAP EVERY 5 YEARS due on 02/07/2016 HPV EVERY 5 YEARS due on 02/07/2016 MAMMOGRAM due on 2017 INFLUENZA(1) due on 06/14/2018 DTAP,TDAP,TD(2 - Tdap) due on 06/06/2021 ONE PNEUMOVAX PRIOR TO AGE 65 Completed ASSESSMENT/PLAN: 1. Generalized anxiety disorder - ICD9: 300.02, ICD10: F41.1 (primary diagnosis) Controlled on Zoloft. Continue current regimen. 2. Current moderate episode of major depressive disorder, unspecified whether recurrent (HCC) - ICD9: 296.22, ICD10: F32.1 See above. 3. Screening for cervical cancer - ICD9: V76.2, ICD10: Z12.4 - CONSULT TO GYNECOLOGY 4. Screening mammogram, encounter for - ICD9: V76.12, ICD10: Z12.31 - Set up for mammogram, yearly mammogram recommended - Follow up for annual exam in one year. - NANY SCREENING 5. Tobacco use - ICD9: 305.1, ICD10: Z72.0 - Cessation encouraged. - Physiologic and physical aspects of tobacco addiction as well as strategies for quitting were discussed. - Counseling was given focusing on the harmful effects of this addiction especially given the patient's medical condition(s) which will be worsened because of the chemicals in tobacco. 6. Hyperlipidemia, unspecified hyperlipidemia type - ICD9: 272.4, ICD10: E78.5 - to be determined upon return of lab results - Encouraged following a low fat, low cholesterol diet. - Discussed the benefits of regular aerobic exercise and weight loss. - COMP METABOLIC PANEL - LIPID PANEL BASIC Slick Erwin MD Referring Provider: SLICK ERWIN () [[id number]] Allergies As of Date: 05/22/2018 Noted Allergy Reaction NYSTATIN 02/10/2018 4 - Hives Comments: Thinks it is what caused hives to start Date Reviewed: 05/22/2018 Reviewed by: Saeed Hilliard Ma - Fully Assessed Reason for Visit: F/U 3 Month [443] Primary Visit Diagnosis:Generalized anxiety disorder [F41.1] Other Visit Diagnoses:Current moderate episode of major depressive disorder, unspecified whether recurrent (HCC) [F32.1] Screening for cervical cancer [Z12.4] Screening mammogram, encounter for [Z12.31] Tobacco use [Z72.0] Hyperlipidemia, unspecified hyperlipidemia type [E78.5] Order(s):CONSULT TO GYNECOLOGY [9013] Order #: [id number]: 1 NANY SCREENING [2361151] Order #: [id number] FUTURE COMP METABOLIC PANEL [SQCMP] Order #: [id number] FUTURE LIPID PANEL BASIC [SQLIPB] Order #: [id number] FUTURE Prescriptions as of 05/22/2018 Sig: SERTRALINE 100 MG TABLET TAKE ONE TABLET BY MOUTH ONCE* GABAPENTIN 300 MG CAPSULE Take 2 capsules by mouth thre* ACETAMINOPHEN 325 MG TABLET Take 2 tablets by mouth every* IBUPROFEN 600 MG TABLET Take 1 tablet by mouth every * GINSENG ORAL Take 2 tablets by mouth once * Problem List As Of Date 05/22/2018 Noted Resolved TENSION HEADACHE [G44.209] INVALID FOR* MIGRAINE NOS W/O MENTN INTRACTABLE [G43.909] INVALID FOR* SPRAIN OF NECK [S13.9XXA] INVALID FOR* Insomnia [G47.00] INVALID FOR* Backache, unspecified [M54.9] INVALID FOR* Cervicalgia [M54.2] INVALID FOR* Panic attacks [F41.0] INVALID FOR* Family history of coronary artery disease [Z82.*INVALID FOR* Hyperlipidemia [E78.5] INVALID FOR* Tobacco use [Z72.0] INVALID FOR* Snoring [R06.83] INVALID FOR* Generalized anxiety disorder [F41.1] INVALID FOR* Lumbosacral neuritis [M54.17] INVALID FOR* Anal fistula [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 Depression [F32.9] Medications Discontinued During This Encounter cyclobenzaprine (FLEXERIL) 10 mg tab* 30 t* 2 04/21/2018 05/22/2018 Cmt: Please consider 90 day supplies to promote better adherence Sig: TAKE 1 TABLET BY MOUTH ONCE DAILY AT BEDTIME Disc: Reason for discontinue is not on file. sertraline (ZOLOFT) 100 mg tablet 30 t* 1 12/16/2017 05/22/2018 Route: ORAL Sig: Take 1 tablet by mouth once daily. Disc: Reason for discontinue is not on file. Disposition: Return in about 6 months (around 11/22/2018). Follow-up and Disposition History Recorded Encounter Status:Closed by SLICK ERWIN MD on 05/22/18 PROGRESS Observed: 05/22/2018 Status: COMPLETED Source: [place] 12:55 PM [facility] REPOSITORY HNO ID: [id number] Author: Slick Ocasio) Yaima Service: (none) Author Type: Physician Type: Progress Notes Filed: 05/22/2018 1:22 PM Note Text: Chief Complaint Patient presents with: F/U 3 Month HPI Dalia Bella is a 42 year old female who presents here today for 3 month follow up. Following up regularly with consumer marketing specialist for history of cervical neuritis and lumbosacral neuritis. Last appointment 2 months ago. Recommending slow titration of gabapentin for radicular symptoms. Offered epidural injections, which patient is refusing. Anxiety and depression symptoms well controlled on Zoloft daily. Denies side effects. No suicidal ideations or panic symptoms. Does not need refills today. Still smoking regularly. Refusing help with cessation. Due for screening mammogram since turning age 42. Denies breast lumps or bumps. Has not had pap smear since 2010. Needs referral to [facility] today. Due for repeat lipid panel and CMP. Past medical history, appointments, medications, allergies reviewed. Previous Medical History PAST MEDICAL HISTORY Diagnosis Date - Anal fistula - Anxiety - Backache, unspecified - Cervical neuritis - Depression - Headache(784.0) - Lumbosacral neuritis - Menorrhagia - Perianal cyst - Tobacco use Previous Surgical History PAST SURGICAL HISTORY Procedure Laterality Date - ESSURE 2010 - PAST SURGICAL HISTORY OF 06/2017 Excision of left perianal cystic lesion, exam under - PAST SURGICAL HISTORY OF Fallopian tube coils - PAST SURGICAL HISTORY OF 01/2018 repair of anal fissure Family History FAMILY HISTORY Problem Relation Age of Onset - Heart Mother 40 Double by-pass - Hypertension Father - Heart Maternal Grandmother - Alzheimer's Disease Maternal Grandmother Greatgrandmother - Diabetes Maternal Grandmother - Heart Maternal Grandfather - Diabetes Maternal Grandfather - Alzheimer's Disease Paternal Grandmother Greatgrandmother - Hypertension Paternal Grandfather - Hypertension Brother - Heart Maternal Uncle - Breast Cancer Paternal Aunt Two Aunts Patient Allergies ALLERGIES Allergen Reactions - Nystatin Altagracia Thinks it is what caused hives to start Current Medications Current Outpatient Prescriptions on File Prior to Visit: sertraline (ZOLOFT) 100 mg tablet TAKE ONE TABLET BY MOUTH ONCE DAILY cyclobenzaprine (FLEXERIL) 10 mg tablet TAKE 1 TABLET BY MOUTH ONCE DAILY AT BEDTIME gabapentin (NEURONTIN) 300 mg capsule Take 2 capsules by mouth three times daily for 90 days. acetaminophen (TYLENOL) 325 mg tablet Take 2 tablets by mouth every 6 hours as needed for Pain (for pain.). ibuprofen (MOTRIN) 600 mg tablet Take 1 tablet by mouth every 6 hours as needed for Pain. GINSENG ORAL Take 2 tablets by mouth once daily. sertraline (ZOLOFT) 100 mg tablet Take 1 tablet by mouth once daily. No current facility-administered medications on file prior to visit. 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[employer]* Social History Main Topics Smoking status: Current Every Day Smoker Packs/day: 1.00 Years: 4.00 Types: Cigarettes Smokeless tobacco: Never Used Alcohol use: Yes Comment: occasionally Drug use: No Sexual activity: Yes Partners with: Male control/protection: Surgical Comment: essure Review of Symptoms REVIEW OF SYSTEMS GENERAL: No weight loss, malaise or fevers RESPIRATORY: Negative for cough, hemoptysis, wheezing, COPD, dyspnea or shortness of breath CARDIOVASCULAR: Negative for chest pain, leg swelling, hypertension, CHF or palpitations GI: No nausea, vomiting, or diarrhea SKIN: Negative for lesions, rash, and itching EXAM: BP 96/66 Pulse 72 Resp 12 Wt 55.8 kg (123 lb) BMI 24.02 kg/m? General Appearance: Well appearing, alert, in no acute distress, well-hydrated, well nourished.. Skin: Skin color, texture, turgor normal, no suspicious rashes or lesions. Neck: Supple, no adenopathy; thyroid symmetric, normal size. Lungs: Lungs clear to auscultation. No wheezing, rhonchi, rales. Heart: RRR without murmur, gallop, or rubs. No ectopy. Abdomen: Normal abdominal exam, Abdomen soft, non-tender. Bowel sounds normal. No masses, organomegaly. Extremities: No deformities, edema, skin discoloration, clubbing or cyanosis. Good capillary refill. . Health Maintenance List PAP EVERY 5 YEARS due on 02/07/2016 HPV EVERY 5 YEARS due on 02/07/2016 MAMMOGRAM due on 2017 INFLUENZA(1) due on 06/14/2018 DTAP,TDAP,TD(2 - Tdap) due on 06/06/2021 ONE PNEUMOVAX PRIOR TO AGE 65 Completed ASSESSMENT/PLAN: 1. Generalized anxiety disorder - ICD9: 300.02, ICD10: F41.1 (primary diagnosis) Controlled on Zoloft. Continue current regimen. 2. Current moderate episode of major depressive disorder, unspecified whether recurrent (HCC) - ICD9: 296.22, ICD10: F32.1 See above. 3. Screening for cervical cancer - ICD9: V76.2, ICD10: Z12.4 - CONSULT TO GYNECOLOGY 4. Screening mammogram, encounter for - ICD9: V76.12, ICD10: Z12.31 - Set up for mammogram, yearly mammogram recommended - Follow up for annual exam in one year. - NANY SCREENING 5. Tobacco use - ICD9: 305.1, ICD10: Z72.0 - Cessation encouraged. - Physiologic and physical aspects of tobacco addiction as well as strategies for quitting were discussed. - Counseling was given focusing on the harmful effects of this addiction especially given the patient's medical condition(s) which will be worsened because of the chemicals in tobacco. 6. Hyperlipidemia, unspecified hyperlipidemia type - ICD9: 272.4, ICD10: E78.5 - to be determined upon return of lab results - Encouraged following a low fat, low cholesterol diet. - Discussed the benefits of regular aerobic exercise and weight loss. - COMP METABOLIC PANEL - LIPID PANEL BASIC Slick Erwin MD PROGRESS Observed: 04/01/2018 Status: COMPLETED Source: [place] 3:54 PM [facility] REPOSITORY HNO ID: [id number] Author: Brittany Baum (Lilian Ward Service: (none) Author Type: Nurse Practitioner Type: Progress Notes Filed: 04/01/2018 4:38 PM Note Text: SPINE CARE PATH NECK PAIN: CHRONIC FOLLOW UP SUBJECTIVE HISTORY OF PRESENT ILLNESS: Reason for Visit: neck pain Dalia Bella is seen for follow up. 08/22/16 s/p C7-T1 interlaminar epidural injection right paramedian approach Pt states immediately after injection pain was about 75% relieved for 24 hours and then she had a headache for about 24 hours. Since this time, however, pain in neck is about 90% improved, pain in left shoulder is 100% improved and headaches are about 80% improved. Pain in neck, radiates into right arm into right 3rd and 5th fingers. Slightly worse than the last time I saw her but not severe. Pt takes gabapentin 300 mg TID. Denies any side effects from medication. She is feeling slightly worse. The distribution of symptoms is unchanged. Pain is currently 3 out of 10. Interim treatment has included gabapentin. Adherence with treatment has been excellent. Adverse Effects: None Interim Studies Obtained and Reviewed: None PED RED FLAGS YELLOW AND BLUE FLAGS No No-Significant Injury to Spine No-Use of Steroids for Prolonged Duration No-Loss of Bowel/Bladder Control, Genital/Anal Numbness No-Recent Use of Intravenous (IV) Drugs No-Difficulty Keeping Balance when Walking No-Progressive Weakness in Arms/Legs No-History of Any Type of Cancer No-Unable to Find Position of Comfort No-Pain at Night that Disturbs Sleep No-Recent Elevated Temp with Unknown Cause No-Diagnosed with Osteoporosis No-Unintentional Weight Loss or Gain No-Neg Attitude; Back Pain is Disabling No-Avoiding Activity (for Fear of Pain) No-Depression or Anxiety Disorders No-Social Problems No-Substance Use Disorder No-Job Dissatisfaction No-Financial Disincentives Clarification of pt's responses: No problems with balance but was lightheaded once and found to have orthostatic hypotension, seeing PCP about this. Also, does not have problems with bowel or bladder control. Did have a problem with an mehul-anal cyst and had problems with constipation. *PED (Patient Entered Data) osteoporosis flag will display for females 55 years or older and males 75 years or older. ACTIVE PROBLEM LIST Tension Headache Migraine, Unspecified, Without Mention of Intractable Migraine Without Mention of Status Migrainosus Sprain of Neck Insomnia Backache, Unspecified Cervicalgia Panic Attacks Family History of Coronary Artery Disease Hyperlipidemia Tobacco Use Snoring Generalized Anxiety Disorder Lumbosacral Neuritis Anal Fistula PAST MEDICAL HISTORY Diagnosis Date - Anal fistula - Backache, unspecified - Depression - Headache(784.0) - Menorrhagia - Perianal cyst PAST SURGICAL HISTORY Procedure Laterality Date - ESSURE 2010 - PAST SURGICAL HISTORY OF 06/2017 Excision of left perianal cystic lesion, exam under - PAST SURGICAL HISTORY OF Fallopian tube coils - PAST SURGICAL HISTORY OF 01/2018 repair of anal fissure Social History Marital status: Single Spouse name: Years of education: 12 Number of children: 3 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[employer]* Social History Main Topics Smoking status: Current Every Day Smoker Packs/day: 1.00 Years: 4.00 Types: Cigarettes Smokeless tobacco: Never Used Alcohol use: Yes Comment: occasionally Drug use: No Sexual activity: Yes Partners with: Male control/protection: Surgical Comment: julian FAMILY HISTORY Problem Relation Age of Onset - Heart Mother 40 Double by-pass - Hypertension Father - Heart Maternal Grandmother - Alzheimer's Disease Maternal Grandmother Greatgrandmother - Diabetes Maternal Grandmother - Heart Maternal Grandfather - Diabetes Maternal Grandfather - Alzheimer's Disease Paternal Grandmother Greatgrandmother - Hypertension Paternal Grandfather - Hypertension Brother - Heart Maternal Uncle - Breast Cancer Paternal Aunt Two Aunts ALLERGIES Allergen Reactions - Nystatin Hives Thinks it is what caused hives to start CURRENT MEDICATIONS: gabapentin (NEURONTIN) 300 mg capsule Take 1 capsule by mouth three times daily for 90 days. acetaminophen (TYLENOL) 325 mg tablet Take 2 tablets by mouth every 6 hours as needed for Pain (for pain.). ibuprofen (MOTRIN) 600 mg tablet Take 1 tablet by mouth every 6 hours as needed for Pain. GINSENG ORAL Take 2 tablets by mouth once daily. cyclobenzaprine (FLEXERIL) 10 mg tablet TAKE 1 TABLET BY MOUTH ONCE DAILY AT BEDTIME sertraline (ZOLOFT) 100 mg tablet Take 1 tablet by mouth once daily. REVIEW OF SYSTEMS: Review of Systems Constitutional: Negative Eyes: Negative Hent: Negative Cardiovascular: Negative Respiratory: Negative GI: Negative : Negative Endocrine: Negative Musculoskeletal Positive for Back Pain Negative for Joint Swelling, Stiff Joints and Muscle Pain Integumentary: Negative Heme/Lymph: Negative Allergy/Immunologic: Negative Neurologic Positive for Headache, Numbness/Tingling and Weakness Negative for Memory Problems, Double Vision, Trouble Swallowing and Slurred Speech Psychiatric Positive for Stress or Conflicts, Depression and Anxiety Negative for Irritability, Hallucinations and Delusions Patient's Review of Systems has been reviewed with the patient and updated as appropriate. OBJECTIVE PHYSICAL EXAM: BP 100/65 Pulse 104 Resp 16 The patient is a well developed, well nourished female who is cooperative. The patient's gait is normal. Posture and spinal curves are normal. There is no palpable cervical or supraclavicular lymphadenopathy. Patient has no palpable muscle spasm and/or tenderness. Flexion is within normal limits. Cervical rotation is limited with pain; left. Extension is decreased. Triceps reflexes are 2+ Normal right and 2+ Normal left. Biceps reflexes are 2+ Normal right and 2+ Normal left. Brachioradialis reflexes are 2+ Normal right and 2+ Normal left. Upper extremity muscle strength is normal. Tone is within normal limits. Sensation to light touch is within normal limits. 02/12/18: BMP and CBC normal ASSESSMENT/PLAN Lumbosacral neuritis Cervical neuritis (primary encounter diagnosis) Discussed options of increasing neurontin vs repeat epidural injection. At this time pt not ready for an injection but would like to try increasing neurontin slowly. She will slowly titrate from 3 pills per day up to 6 pills per day (very slowly) Reminded pt she cannot stop medication suddenly. Patient's request for medication is as follows: Signed Prescriptions Disp Refills gabapentin (NEURONTIN) 300 mg capsule 180 capsule 2 Sig: Take 2 capsules by mouth three times daily for 90 days. NANCY: No Imaging Ordered: None A total of 25 minutes [id number] time was spent reviewing patients imaging, examining the patient, and discussing further treatment options. SIGNATURE: Brittany Ward APRN.JEFE PATIENT NAME: Dalia Bella DATE: April 01, 2018 TIME: 3:54 PM CNOV Observed: 04/01/2018 Status: COMPLETED Source: [place] 3:25 PM [facility] REPOSITORY Office Visit ([facility]) DALIA BELLA ([id number]) 1975 F Date Time Provider Department 04/01/18 3:25 PM BRITTANY WARD (POURER CRANE LADLE) [facility] During your visit today, we recorded the following information about you: Pulse Respiration Blood pressure 104/minute 16/minute 100/65 Festus Rabago Ma 04/01/2018 3:38 PM Signed Dalia Bella is a 42 year old female who follows up today for Neck pain. AMB ROOMING INTAKE FLOWSHEET DATA Risk Screening Do you have concerns about personal safety or safety in the home?: No Pain Pain Score: 3/10 (worst: 8/10) Pain Location: Neck (arms, hands, fingers, upper back, lower back and bilateral big toes. ) Description: Aching, Numbness, Sharp Duration Amount of Time: (ongoing) Duration Units: Years Frequency: Continuous Intervention: Medication, Reposition, Relaxation Rosalva De Luna Ma, [facility] 04/01/2018 4:38 PM Signed SPINE CARE PATH NECK PAIN: CHRONIC FOLLOW UP SUBJECTIVE HISTORY OF PRESENT ILLNESS: Reason for Visit: neck pain Dalia Bella is seen for follow up. 08/22/16 s/p C7-T1 interlaminar epidural injection right paramedian approach Pt states immediately after injection pain was about 75% relieved for 24 hours and then she had a headache for about 24 hours. Since this time, however, pain in neck is about 90% improved, pain in left shoulder is 100% improved and headaches are about 80% improved. Pain in neck, radiates into right arm into right 3rd and 5th fingers. Slightly worse than the last time I saw her but not severe. Pt takes gabapentin 300 mg TID. Denies any side effects from medication. She is feeling slightly worse. The distribution of symptoms is unchanged. Pain is currently 3 out of 10. Interim treatment has included gabapentin. Adherence with treatment has been excellent. Adverse Effects: None Interim Studies Obtained and Reviewed: None PED RED FLAGS YELLOW AND BLUE FLAGS No No-Significant Injury to Spine No-Use of Steroids for Prolonged Duration No-Loss of Bowel/Bladder Control, Genital/Anal Numbness No-Recent Use of Intravenous (IV) Drugs No-Difficulty Keeping Balance when Walking No-Progressive Weakness in Arms/Legs No-History of Any Type of Cancer No-Unable to Find Position of Comfort No-Pain at Night that Disturbs Sleep No-Recent Elevated Temp with Unknown Cause No-Diagnosed with Osteoporosis No-Unintentional Weight Loss or Gain No-Neg Attitude; Back Pain is Disabling No-Avoiding Activity (for Fear of Pain) No-Depression or Anxiety Disorders No-Social Problems No-Substance Use Disorder No-Job Dissatisfaction No-Financial Disincentives Clarification of pt's responses: No problems with balance but was lightheaded once and found to have orthostatic hypotension, seeing PCP about this. Also, does not have problems with bowel or bladder control. Did have a problem with an mehul-anal cyst and had problems with constipation. *PED (Patient Entered Data) osteoporosis flag will display for females 55 years or older and males 75 years or older. ACTIVE PROBLEM LIST Tension Headache Migraine, Unspecified, Without Mention of Intractable Migraine Without Mention of Status Migrainosus Sprain of Neck Insomnia Backache, Unspecified Cervicalgia Panic Attacks Family History of Coronary Artery Disease Hyperlipidemia Tobacco Use Snoring Generalized Anxiety Disorder Lumbosacral Neuritis Anal Fistula PAST MEDICAL HISTORY Diagnosis Date - Anal fistula - Backache, unspecified - Depression - Headache(784.0) - Menorrhagia - Perianal cyst PAST SURGICAL HISTORY Procedure Laterality Date - ESSURE 2010 - PAST SURGICAL HISTORY OF 06/2017 Excision of left perianal cystic lesion, exam under - PAST SURGICAL HISTORY OF Fallopian tube coils - PAST SURGICAL HISTORY OF 01/2018 repair of anal fissure Social History Marital status: Single Spouse name: Years of education: 12 Number of children: 3 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[employer]* Social History Main Topics Smoking status: Current Every Day Smoker Packs/day: 1.00 Years: 4.00 Types: Cigarettes Smokeless tobacco: Never Used Alcohol use: Yes Comment: occasionally Drug use: No Sexual activity: Yes Partners with: Male control/protection: Surgical Comment: essure FAMILY HISTORY Problem Relation Age of Onset - Heart Mother 40 Double by-pass - Hypertension Father - Heart Maternal Grandmother - Alzheimer's Disease Maternal Grandmother Greatgrandmother - Diabetes Maternal Grandmother - Heart Maternal Grandfather - Diabetes Maternal Grandfather - Alzheimer's Disease Paternal Grandmother Greatgrandmother - Hypertension Paternal Grandfather - Hypertension Brother - Heart Maternal Uncle - Breast Cancer Paternal Aunt Two Aunts ALLERGIES Allergen Reactions - Nystatin Hives Thinks it is what caused hives to start CURRENT MEDICATIONS: gabapentin (NEURONTIN) 300 mg capsule Take 1 capsule by mouth three times daily for 90 days. acetaminophen (TYLENOL) 325 mg tablet Take 2 tablets by mouth every 6 hours as needed for Pain (for pain.). ibuprofen (MOTRIN) 600 mg tablet Take 1 tablet by mouth every 6 hours as needed for Pain. GINSENG ORAL Take 2 tablets by mouth once daily. cyclobenzaprine (FLEXERIL) 10 mg tablet TAKE 1 TABLET BY MOUTH ONCE DAILY AT BEDTIME sertraline (ZOLOFT) 100 mg tablet Take 1 tablet by mouth once daily. REVIEW OF SYSTEMS: Review of Systems Constitutional: Negative Eyes: Negative Hent: Negative Cardiovascular: Negative Respiratory: Negative GI: Negative : Negative Endocrine: Negative Musculoskeletal Positive for Back Pain Negative for Joint Swelling, Stiff Joints and Muscle Pain Integumentary: Negative Heme/Lymph: Negative Allergy/Immunologic: Negative Neurologic Positive for Headache, Numbness/Tingling and Weakness Negative for Memory Problems, Double Vision, Trouble Swallowing and Slurred Speech Psychiatric Positive for Stress or Conflicts, Depression and Anxiety Negative for Irritability, Hallucinations and Delusions Patient's Review of Systems has been reviewed with the patient and updated as appropriate. OBJECTIVE PHYSICAL EXAM: BP 100/65 Pulse 104 Resp 16 The patient is a well developed, well nourished female who is cooperative. The patient's gait is normal. Posture and spinal curves are normal. There is no palpable cervical or supraclavicular lymphadenopathy. Patient has no palpable muscle spasm and/or tenderness. Flexion is within normal limits. Cervical rotation is limited with pain; left. Extension is decreased. Triceps reflexes are 2+ Normal right and 2+ Normal left. Biceps reflexes are 2+ Normal right and 2+ Normal left. Brachioradialis reflexes are 2+ Normal right and 2+ Normal left. Upper extremity muscle strength is normal. Tone is within normal limits. Sensation to light touch is within normal limits. 02/12/18: BMP and CBC normal ASSESSMENT/PLAN Lumbosacral neuritis Cervical neuritis (primary encounter diagnosis) Discussed options of increasing neurontin vs repeat epidural injection. At this time pt not ready for an injection but would like to try increasing neurontin slowly. She will slowly titrate from 3 pills per day up to 6 pills per day (very slowly) Reminded pt she cannot stop medication suddenly. Patient's request for medication is as follows: Signed Prescriptions Disp Refills gabapentin (NEURONTIN) 300 mg capsule 180 capsule 2 Sig: Take 2 capsules by mouth three times daily for 90 days. NANCY: No Imaging Ordered: None A total of 25 minutes [id number] time was spent reviewing patients imaging, examining the patient, and discussing further treatment options. SIGNATURE: Brittany Ward APRN.SERIALS LIBRARIAN PATIENT NAME: Dalia Bella DATE: April 01, 2018 TIME: 3:54 PM Referring Provider: SELF [[id number]] Allergies As of Date: 04/01/2018 Noted Allergy Reaction NYSTATIN 02/10/2018 4 - Hives Comments: Thinks it is what caused hives to start Date Reviewed: 04/01/2018 Reviewed by: Festus Rabago Ma - Fully Assessed Reason for Visit: Neck Pain [135] Primary Visit Diagnosis:Cervical neuritis [M54.12] Other Visit Diagnosis:Lumbosacral neuritis [M54.17] Order(s):gabapentin (NEURONTIN) 300 mg capsuleTake 2 capsules by mouth three times daily for 90 days.Disp: 180 capsuleRfl: 2 Prescriptions as of 04/01/2018 Sig: GABAPENTIN 300 MG CAPSULE Take 2 capsules by mouth thre* ACETAMINOPHEN 325 MG TABLET Take 2 tablets by mouth every* IBUPROFEN 600 MG TABLET Take 1 tablet by mouth every * GINSENG ORAL Take 2 tablets by mouth once * CYCLOBENZAPRINE 10 MG TABLET TAKE 1 TABLET BY MOUTH ONCE D* SERTRALINE 100 MG TABLET Take 1 tablet by mouth once d* Problem List As Of Date 04/01/2018 Noted Resolved TENSION HEADACHE [G44.209] INVALID FOR* MIGRAINE NOS W/O MENTN INTRACTABLE [G43.909] INVALID FOR* SPRAIN OF NECK [S13.9XXA] INVALID FOR* Insomnia [G47.00] INVALID FOR* Backache, unspecified [M54.9] INVALID FOR* Cervicalgia [M54.2] INVALID FOR* Panic attacks [F41.0] INVALID FOR* Family history of coronary artery disease [Z82.*INVALID FOR* Hyperlipidemia [E78.5] INVALID FOR* Tobacco use [Z72.0] INVALID FOR* Snoring [R06.83] INVALID FOR* Generalized anxiety disorder [F41.1] INVALID FOR* Lumbosacral neuritis [M54.17] INVALID FOR* Anal fistula [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 Visit Notes: >> Festus Miguel Apr 01, 2018 3:38 PM Status: Signed Dalia Bella is a 42 year old female who follows up today for Neck pain. AMB ROOMING INTAKE FLOWSHEET DATA Risk Screening Do you have concerns about personal safety or safety in the home?: No Pain Pain Score: 3/10 (worst: 8/10) Pain Location: Neck (arms, hands, fingers, upper back, lower back and bilateral big toes. ) Description: Aching, Numbness, Sharp Duration Amount of Time: (ongoing) Duration Units: Years Frequency: Continuous Intervention: Medication, Reposition, Relaxation Festus Rabago Ma, Rosalva Prescriptions ordered this encounter Disp Refills Start End GABAPENTIN 300 MG CAPSULE 180 * 2 04/01/2018 06/30/2018 Route: ORAL Sig: Take 2 capsules by mouth three times daily for 90 days. Medications Discontinued During This Encounter gabapentin (NEURONTIN) 300 mg capsule 90 c* 0 03/07/2018 04/01/2018 Route: ORAL Sig: Take 1 capsule by mouth three times daily for 90 days. Disc: Reason for discontinue is not on file. Encounter Status:Closed by BRITTANY WARD CNP on 04/01/18 PROGRESS Observed: 02/26/2018 Status: COMPLETED Source: [place] 3:03 PM [facility] REPOSITORY [facility] ID: [id number] Author: Prakash Gale Service: (none) Author Type: Physician Type: Progress Notes Filed: 02/26/2018 4:04 PM Note Text: Dalia Bella returns for a post-operative visit after undergoing Examination under anesthetic and fistulotomy, on 01/21/2018. Her post-operative period was uncomplicated. She feels better than before. She is tolerating diet with an improving appetite, stable weight, and bowel function BM's daily. Stools are soft, denies any blood in the stool. No recent fevers or chills. She has no specific complaints, She has not seen a manager sap. She is sp of EUA and fistulotomy and has been doing well, no drainage no pain Tolerating diet and has been doing well no blood in stools no fever Pathology reviewed: No Imaging reviewed: Not Applicable Current Outpatient Prescriptions: acetaminophen (TYLENOL) 325 mg tablet Take 2 tablets by mouth every 6 hours as needed for Pain (for pain.). Disp: Rfl: ibuprofen (MOTRIN) 600 mg tablet Take 1 tablet by mouth every 6 hours as needed for Pain. Disp: Rfl: GINSENG ORAL Take 2 tablets by mouth once daily. Disp: Rfl: cyclobenzaprine (FLEXERIL) 10 mg tablet TAKE 1 TABLET BY MOUTH ONCE DAILY AT BEDTIME Disp: 30 tablet Rfl: 2 gabapentin (NEURONTIN) 300 mg capsule Take 1 capsule by mouth three times daily for 90 days. Disp: 90 capsule Rfl: 2 sertraline (ZOLOFT) 100 mg tablet Take 1 tablet by mouth once daily. Disp: 30 tablet Rfl: 1 No current facility-administered medications for this visit. ALLERGIES Allergen Reactions - Nystatin Hives Thinks it is what caused hives to start Ht 152.4 cm (5') Wt 55.3 kg (122 lb) BMI 23.83 kg/m? Abdominal examination: soft, non-distended, and non-tender without masses or hernias. Wound is well healed. Patient does not have a stoma. Perineal wound: No Assessment Normal post-operative recovery AP 42 yo female with prior fistula in ano and sp fistulotomy an dis here for her post operative visit and is doing well Plan PLAN 1. Return to normal diet and activity without restriction Follow-up visit in as needed. 4. Additional testing/consults: no additional testing needed at this time. Prakash Gale MD FACS February 26, 2018 3:03 PM CNOV Observed: 02/26/2018 Status: COMPLETED Source: [place] 3:00 PM [facility] REPOSITORY Office Visit (CORN) DALIA BELLA ([id number]) 1975 F Date Time Provider Department 02/26/18 3:00 PM PRAKASH GALE During your visit today, we recorded the following information about you: Weight Height 55.3 kg 1.524 m Prakash Gale MD FACS 02/26/2018 4:04 PM Signed Dalia Bella returns for a post-operative visit after undergoing Examination under anesthetic and fistulotomy, on 01/21/2018. Her post-operative period was uncomplicated. She feels better than before. She is tolerating diet with an improving appetite, stable weight, and bowel function BM's daily. Stools are soft, denies any blood in the stool. No recent fevers or chills. She has no specific complaints, She has not seen a manager sap. She is sp of EUA and fistulotomy and has been doing well, no drainage no pain Tolerating diet and has been doing well no blood in stools no fever Pathology reviewed: No Imaging reviewed: Not Applicable Current Outpatient Prescriptions: acetaminophen (TYLENOL) 325 mg tablet Take 2 tablets by mouth every 6 hours as needed for Pain (for pain.). Disp: Rfl: ibuprofen (MOTRIN) 600 mg tablet Take 1 tablet by mouth every 6 hours as needed for Pain. Disp: Rfl: GINSENG ORAL Take 2 tablets by mouth once daily. Disp: Rfl: cyclobenzaprine (FLEXERIL) 10 mg tablet TAKE 1 TABLET BY MOUTH ONCE DAILY AT BEDTIME Disp: 30 tablet Rfl: 2 gabapentin (NEURONTIN) 300 mg capsule Take 1 capsule by mouth three times daily for 90 days. Disp: 90 capsule Rfl: 2 sertraline (ZOLOFT) 100 mg tablet Take 1 tablet by mouth once daily. Disp: 30 tablet Rfl: 1 No current facility-administered medications for this visit. ALLERGIES Allergen Reactions - Nystatin Hives Thinks it is what caused hives to start Ht 152.4 cm (5') Wt 55.3 kg (122 lb) BMI 23.83 kg/m? Abdominal examination: soft, non-distended, and non-tender without masses or hernias. Wound is well healed. Patient does not have a stoma. Perineal wound: No Assessment Normal post-operative recovery AP 42 yo female with prior fistula in ano and sp fistulotomy an dis here for her post operative visit and is doing well Plan PLAN 1. Return to normal diet and activity without restriction Follow-up visit in as needed. 4. Additional testing/consults: no additional testing needed at this time. Prakash Gale MD FACS February 26, 2018 3:03 PM Referring Provider: SLICK ERWIN) [[id number]] Allergies As of Date: 02/26/2018 Noted Allergy Reaction NYSTATIN 02/10/2018 4 - Hives Comments: Thinks it is what caused hives to start Date Reviewed: 02/26/2018 Reviewed by: Ross Dudley - Fully Assessed Reason for Visit: Post Op [174] Primary Visit Diagnosis:Anal fistula [K60.3] Prescriptions as of 02/26/2018 Sig: ACETAMINOPHEN 325 MG TABLET Take 2 tablets by mouth every* IBUPROFEN 600 MG TABLET Take 1 tablet by mouth every * GINSENG ORAL Take 2 tablets by mouth once * CYCLOBENZAPRINE 10 MG TABLET TAKE 1 TABLET BY MOUTH ONCE D* GABAPENTIN 300 MG CAPSULE Take 1 capsule by mouth three* SERTRALINE 100 MG TABLET Take 1 tablet by mouth once d* Problem List As Of Date 02/26/2018 Noted Resolved TENSION HEADACHE [G44.209] INVALID FOR* MIGRAINE NOS W/O MENTN INTRACTABLE [G43.909] INVALID FOR* SPRAIN OF NECK [S13.9XXA] INVALID FOR* Insomnia [G47.00] INVALID FOR* Backache, unspecified [M54.9] INVALID FOR* Cervicalgia [M54.2] INVALID FOR* Panic attacks [F41.0] INVALID FOR* Family history of coronary artery disease [Z82.*INVALID FOR* Hyperlipidemia [E78.5] INVALID FOR* Tobacco use [Z72.0] INVALID FOR* Snoring [R06.83] INVALID FOR* Generalized anxiety disorder [F41.1] INVALID FOR* Lumbosacral neuritis [M54.17] INVALID FOR* Anal fistula [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 Encounter Status:Closed by CHAITANYAPRAKASH GODOY MD, FACS on 02/26/18 PROGRESS Observed: 02/19/2018 Status: COMPLETED Source: [place] 3:41 PM [facility] REPOSITORY [facility] ID: [id number] Author: Slick Erwin () Service: (none) Author Type: Physician Type: Progress Notes Filed: 02/19/2018 4:53 PM Note Text: Chief Complaint No chief complaint on file. HPI Dalia Bella is a 42 year old female who presents here today for ER Follow Up.. Patient was seen at [facility] ED on 02/12 for complaint of abdominal pain which started that afternoon. Located in left upper and lower quadrant. No associated symptoms. Exam showed L upper and lower quadrant TTP without rebound or guarding. Labs, UA, and CT abd/pelvis negative aside from low potassium at 3.1. given oral replacement, IV fluids, morphine and Zofran and discharged home as symptoms improved. Advised to follow up with PCP. Since discharge, patient has been taking the Pepcid as prescribed and pain has completely resolved. Has not had any further symptoms after discharge. Noted BP chronically low and patient admits to intermittent lightheadedness without syncope. Discussed further workup and referral to cardiology, but patient refusing today. Has a lot of stress at home right now and would like to address further at future appointment. Past medical history, appointments, medications, allergies reviewed. Previous Medical History PAST MEDICAL HISTORY Diagnosis Date - Anal fistula - Backache, unspecified - Depression - Headache(784.0) - Menorrhagia - Perianal cyst Previous Surgical History PAST SURGICAL HISTORY Procedure Laterality Date - ESSURE 2010 - PAST SURGICAL HISTORY OF 06/2017 Excision of left perianal cystic lesion, exam under - PAST SURGICAL HISTORY OF Fallopian tube coils - PAST SURGICAL HISTORY OF 01/2018 repair of anal fissure Family History FAMILY HISTORY Problem Relation Age of Onset - Heart Mother 40 Double by-pass - Hypertension Father - Heart Maternal Grandmother - Alzheimer's Disease Maternal Grandmother Greatgrandmother - Diabetes Maternal Grandmother - Heart Maternal Grandfather - Diabetes Maternal Grandfather - Alzheimer's Disease Paternal Grandmother Greatgrandmother - Hypertension Paternal Grandfather - Hypertension Brother - Heart Maternal Uncle - Breast Cancer Paternal Aunt Two Aunts Patient Allergies ALLERGIES Allergen Reactions - Nystatin Hives Thinks it is what caused hives to start Current Medications Current Outpatient Prescriptions on File Prior to Visit: acetaminophen (TYLENOL) 325 mg tablet Take 2 tablets by mouth every 6 hours as needed for Pain (for pain.). ibuprofen (MOTRIN) 600 mg tablet Take 1 tablet by mouth every 6 hours as needed for Pain. GINSENG ORAL Take 2 tablets by mouth once daily. cyclobenzaprine (FLEXERIL) 10 mg tablet TAKE 1 TABLET BY MOUTH ONCE DAILY AT BEDTIME gabapentin (NEURONTIN) 300 mg capsule Take 1 capsule by mouth three times daily for 90 days. sertraline (ZOLOFT) 100 mg tablet Take 1 tablet by mouth once daily. No current facility-administered medications on file prior to visit. 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[employer]* Social History Main Topics Smoking status: Current Every Day Smoker Packs/day: 1.00 Years: 4.00 Types: Cigarettes Smokeless tobacco: Never Used Alcohol use: Yes Comment: occasionally Drug use: No Sexual activity: Yes Partners with: Male control/protection: Surgical Comment: essure Review of Symptoms REVIEW OF SYSTEMS GENERAL: No weight loss, malaise or fevers RESPIRATORY: Negative for cough, hemoptysis, wheezing, COPD, dyspnea or shortness of breath CARDIOVASCULAR: Negative for chest pain, leg swelling, hypertension, CHF or palpitations GI: See HPI SKIN: Negative for lesions, rash, and itching EXAM: BP 92/62 Pulse 90 Temp 37 ?C (98.6 ?F) (Temporal Artery) Resp 14 Wt 54.9 kg (121 lb) SpO2 97% BMI 23.63 kg/m? General Appearance: Well appearing, alert, in no acute distress, well-hydrated, well nourished.. Skin: Skin color, texture, turgor normal, no suspicious rashes or lesions. Lungs: Lungs clear to auscultation. No wheezing, rhonchi, rales. Heart: RRR without murmur, gallop, or rubs. No ectopy. Abdomen: Normal abdominal exam, Abdomen soft, non-tender. Bowel sounds normal. No masses, organomegaly. Extremities: No deformities, edema, skin discoloration, clubbing or cyanosis. Good capillary refill. . Health Maintenance List PAP EVERY 5 YEARS due on 02/07/2016 HPV EVERY 5 YEARS due on 02/07/2016 MAMMOGRAM due on 2017 DTAP,TDAP,TD(2 - Tdap) due on 06/06/2021 ONE PNEUMOVAX PRIOR TO AGE 65 Completed INFLUENZA Completed ASSESSMENT/PLAN: 1. Epigastric pain - ICD9: 789.06, ICD10: R10.13 (primary diagnosis) Resolved, likely 2/2 gastritis. Continue pepcid and follow up in 3 months. 2. Screening mammogram, encounter for - ICD9: V76.12, ICD10: Z12.31 - Set up for mammogram, yearly mammogram recommended - Follow up for annual exam in one year. - [facility]CREEN[facility] 3. Hypotension, unspecified hypotension type - ICD9: 458.9, ICD10: I95.9 Advised pushing PO fluids. Will recheck at future OV and discuss further evaluation and medications. 4. Tobacco use - ICD9: 305.1, ICD10: Z72.0 - Cessation encouraged. - Physiologic and physical aspects of tobacco addiction as well as strategies for quitting were discussed. - Counseling was given focusing on the harmful effects of this addiction especially given the patient's medical condition(s) which will be worsened because of the chemicals in tobacco. Slick Erwin MD CNOV Observed: 02/19/2018 Status: COMPLETED Source: [place] 3:40 PM [facility] REPOSITORY Office Visit (FAMPWS) DALIA BELLA ([id number]) 1975 F Date Time Provider Department 02/19/18 3:40 PM SLICK ERWIN) FAMPWS During your visit today, we recorded the following information about you: Temperature Pulse Respiration Blood pressure 98.6 degrees 90/minute 14/minute 92/62 Weight 54.9 kg Slick Erwin) 02/19/2018 4:53 PM Signed Chief Complaint No chief complaint on file. [facility] Daliadanial Bella is a 42 year old female who presents here today for ER Follow Up.. Patient was seen at [facility] ED on 02/12 for complaint of abdominal pain which started that afternoon. Located in left upper and lower quadrant. No associated symptoms. Exam showed L upper and lower quadrant TTP without rebound or guarding. Labs, UA, and CT abd/pelvis negative aside from low potassium at 3.1. given oral replacement, IV fluids, morphine and Zofran and discharged home as symptoms improved. Advised to follow up with PCP. Since discharge, patient has been taking the Pepcid as prescribed and pain has completely resolved. Has not had any further symptoms after discharge. Noted BP chronically low and patient admits to intermittent lightheadedness without syncope. Discussed further workup and referral to cardiology, but patient refusing today. Has a lot of stress at home right now and would like to address further at future appointment. Past medical history, appointments, medications, allergies reviewed. Previous Medical History PAST MEDICAL HISTORY Diagnosis Date - Anal fistula - Backache, unspecified - Depression - Headache(784.0) - Menorrhagia - Perianal cyst Previous Surgical History PAST SURGICAL HISTORY Procedure Laterality Date - ESSURE 2010 - PAST SURGICAL HISTORY OF 06/2017 Excision of left perianal cystic lesion, exam under - PAST SURGICAL HISTORY OF Fallopian tube coils - PAST SURGICAL HISTORY OF 01/2018 repair of anal fissure Family History FAMILY HISTORY Problem Relation Age of Onset - Heart Mother 40 Double by-pass - Hypertension Father - Heart Maternal Grandmother - Alzheimer's Disease Maternal Grandmother Greatgrandmother - Diabetes Maternal Grandmother - Heart Maternal Grandfather - Diabetes Maternal Grandfather - Alzheimer's Disease Paternal Grandmother Greatgrandmother - Hypertension Paternal Grandfather - Hypertension Brother - Heart Maternal Uncle - Breast Cancer Paternal Aunt Two Aunts Patient Allergies ALLERGIES Allergen Reactions - Nystatin Hives Thinks it is what caused hives to start Current Medications Current Outpatient Prescriptions on File Prior to Visit: acetaminophen (TYLENOL) 325 mg tablet Take 2 tablets by mouth every 6 hours as needed for Pain (for pain.). ibuprofen (MOTRIN) 600 mg tablet Take 1 tablet by mouth every 6 hours as needed for Pain. GINSENG ORAL Take 2 tablets by mouth once daily. cyclobenzaprine (FLEXERIL) 10 mg tablet TAKE 1 TABLET BY MOUTH ONCE DAILY AT BEDTIME gabapentin (NEURONTIN) 300 mg capsule Take 1 capsule by mouth three times daily for 90 days. sertraline (ZOLOFT) 100 mg tablet Take 1 tablet by mouth once daily. No current facility-administered medications on file prior to visit. 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[employer]* Social History Main Topics Smoking status: Current Every Day Smoker Packs/day: 1.00 Years: 4.00 Types: Cigarettes Smokeless tobacco: Never Used Alcohol use: Yes Comment: occasionally Drug use: No Sexual activity: Yes Partners with: Male control/protection: Surgical Comment: essure Review of Symptoms REVIEW OF SYSTEMS GENERAL: No weight loss, malaise or fevers RESPIRATORY: Negative for cough, hemoptysis, wheezing, COPD, dyspnea or shortness of breath CARDIOVASCULAR: Negative for chest pain, leg swelling, hypertension, CHF or palpitations GI: See HPI SKIN: Negative for lesions, rash, and itching EXAM: BP 92/62 Pulse 90 Temp 37 ?C (98.6 ?F) (Temporal Artery) Resp 14 Wt 54.9 kg (121 lb) SpO2 97% BMI 23.63 kg/m? General Appearance: Well appearing, alert, in no acute distress, well-hydrated, well nourished.. Skin: Skin color, texture, turgor normal, no suspicious rashes or lesions. Lungs: Lungs clear to auscultation. No wheezing, rhonchi, rales. Heart: RRR without murmur, gallop, or rubs. No ectopy. Abdomen: Normal abdominal exam, Abdomen soft, non-tender. Bowel sounds normal. No masses, organomegaly. Extremities: No deformities, edema, skin discoloration, clubbing or cyanosis. Good capillary refill. . Health Maintenance List PAP EVERY 5 YEARS due on 02/07/2016 HPV EVERY 5 YEARS due on 02/07/2016 MAMMOGRAM due on 2017 DTAP,TDAP,TD(2 - Tdap) due on 06/06/2021 ONE PNEUMOVAX PRIOR TO AGE 65 Completed INFLUENZA Completed ASSESSMENT/PLAN: 1. Epigastric pain - ICD9: 789.06, ICD10: R10.13 (primary diagnosis) Resolved, likely 2/2 gastritis. Continue pepcid and follow up in 3 months. 2. Screening mammogram, encounter for - ICD9: V76.12, ICD10: Z12.31 - Set up for mammogram, yearly mammogram recommended - Follow up for annual exam in one year. - [facility] SCREENING 3. Hypotension, unspecified hypotension type - ICD9: 458.9, ICD10: I95.9 Advised pushing PO fluids. Will recheck at future OV and discuss further evaluation and medications. 4. Tobacco use - ICD9: 305.1, ICD10: Z72.0 - Cessation encouraged. - Physiologic and physical aspects of tobacco addiction as well as strategies for quitting were discussed. - Counseling was given focusing on the harmful effects of this addiction especially given the patient's medical condition(s) which will be worsened because of the chemicals in tobacco. Slick Erwin MD Referring Provider: SELF [200] Allergies As of Date: 02/19/2018 Noted Allergy Reaction NYSTATIN 02/10/2018 4 - Hives Comments: Thinks it is what caused hives to start Date Reviewed: 02/19/2018 Reviewed by: Saeed Hilliard Ma - Fully Assessed Reason for Visit: ED Follow-up [821] Cmt: abdominal pain Primary Visit Diagnosis:Epigastric pain [R10.13] Other Visit Diagnoses:Screening mammogram, encounter for [Z12.31] Hypotension, unspecified hypotension type [I95.9] Tobacco use [Z72.0] Order(s):[facility] SCREENING [[id number]] Order #: [id number] FUTURE Prescriptions as of 02/19/2018 Sig: ACETAMINOPHEN 325 MG TABLET Take 2 tablets by mouth every* IBUPROFEN 600 MG TABLET Take 1 tablet by mouth every * GINSENG ORAL Take 2 tablets by mouth once * CYCLOBENZAPRINE 10 MG TABLET TAKE 1 TABLET BY MOUTH ONCE D* GABAPENTIN 300 MG CAPSULE Take 1 capsule by mouth three* SERTRALINE 100 MG TABLET Take 1 tablet by mouth once d* Problem List As Of Date 02/19/2018 Noted Resolved TENSION HEADACHE [G44.209] INVALID FOR* MIGRAINE NOS W/O MENTN INTRACTABLE [G43.909] INVALID FOR* SPRAIN OF NECK [S13.9XXA] INVALID FOR* Insomnia [G47.00] INVALID FOR* Backache, unspecified [M54.9] INVALID FOR* Cervicalgia [M54.2] INVALID FOR* Panic attacks [F41.0] INVALID FOR* Family history of coronary artery disease [Z82.*INVALID FOR* Hyperlipidemia [E78.5] INVALID FOR* Tobacco use [Z72.0] INVALID FOR* Snoring [R06.83] INVALID FOR* Generalized anxiety disorder [F41.1] INVALID FOR* Lumbosacral neuritis [M54.17] INVALID FOR* Anal fistula [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 Disposition: Return in about 3 months (around 05/22/2018). Follow-up and Disposition History Recorded Encounter Status:Closed by SLICK ERWIN MD on 02/19/18 DISCHARGE INSTRUCTION Observed: 02/12/2018 Status: F Source: [place] 10:17 PM [facility] REPOSITORY [facility] Medical Records Department [address] [place] [address] Discharge Instruction 02/12/182215 MR#: [id number] Acct: [id number] Name: DALIA BELLA Rep #: [id number] : 1975 42 From: Judith Macario MD PCP: Cornelius Erwin MD Status: REG ER ED Disposition - Plan for ED Patient: Chief Complaint: Abd Pain Instructions: ED Abdominal Pain Unkn Cause Prescriptions: Famotidine [Pepcid] 20 mg PO BID #28 tablet Referrals: Camila Mercado MD [NON-STAFF] - Cornelius Erwin MD [Primary Care Provider] - What to do if you have Problems For any increased pain, shortness of breath, bleeding, nausea or vomiting, chest pain, or any unexpected problems, contact your Primary Care Provider. Call [facility] ([phone]) or report to the closest Emergency Room. Call 911 if necessary. 02/12/182216 <Electronically signed by Judith Macario MD> Date Judith Macario MD Cosigner Signature (If Indicated): Date CC: Cornelius Erwin MD EMERGENCY DEPARTMENT Observed: 02/12/2018 Status: F Source: [place] SUMMARY 10:16 PM [facility] REPOSITORY [facility] Medical Records Department [address] [place] [address] Emergency Department Summary 02/12/18 1936 MR#: [id number] Acct: [id number] Name: DALIA BELLA Rep #: [id number] : 1975 42 From: Judith Macario MD PCP: Cornelius Erwin MD Status: REG ER - ER Visit Summary Date of Service: 02/12/18 Chief Complaint: Abdominal pain History of Present Illness: The patient is a 42 F presenting with abdominal pain. She states this started this afternoon. She has pain in the epigastric and left upper and lower quadrant. She denies nausea, vomiting, diarrhea, constipation. Denies urinary complaints. Denies possibility of . Denies fever. She has not had these symptoms in the past. She states she occasionally drinks alcohol, she is a smoker. Physical Examination: Vitals are stable. Patient is afebrile. Alert no acute distress. HEENT exam is unremarkable. Neck is supple. Lungs are clear and equal bilaterally. Heart is regular and tachycardic Abdomen is soft epigastric and left upper and left lower quadrant tenderness, no rebound or guarding. Extremities are unremarkable. Skin is warm and dry. No focal neurologic deficit. Remainder of exam is unremarkable. Emergency Department Course and Treatment: Patient given IV fluids, morphine, Zofran. CBC chemistries normal except for potassium 3.1. She is given potassium oral replacement. Liver lipase are normal. Urinalysis is unremarkable. CT of the abdomen pelvis with IV and oral contrast shows no acute process. On reevaluation, she is resting comfortably. She is given a prescription for Pepcid. She is advised to follow-up with her primary care physician. She is advised return to the ED for worsening complaints. Disposition: Discharge home Impression: Abdominal pain This note was generated with TutorialTab dictation software. It may contain incorrect words, spelling, and punctuation that were not noted in review of the chart prior to signing ED Disposition - Plan for ED Patient: Chief Complaint: Abd Pain Referrals: Camila Mercado MD [NON-STAFF] - What to do if you have Problems For any increased pain, shortness of breath, bleeding, nausea or vomiting, chest pain, or any unexpected problems, contact your Primary Care Provider. Call [facility] ([phone]) or report to the closest Emergency Room. Call 911 if necessary. 02/12/18 2214 <Electronically signed by Judith Macario MD> Date Judith Macario MD Cosigner Signature (If Indicated): Date CC: Cornelius Erwin MD URINALYSIS, COMPLETE Collected: 02/12/2018 Status: F Source: [place] 8:43 PM [facility] REPOSITORY Order Comment: How was Urine Obtained? CLEAN CATCH TYPE CODE TESTS RESULT OUT OF RANGE REFERENCE UNITS LAB L400.3000 Yellow COLOR Normal Straw LAB L400.3050 Clear Normal CLARITY Clear LAB L400.3200 Normal mg/dl Normal GLUCOSE, UR Normal LAB L400.3300 Negative mg/dL Normal BILIRUBIN URINE Negative LAB L400.3400 Negative mg/dl Normal KETONE UR Negative LAB L400.3465 1.002-1.030 Normal SP.GR. DIPSTX 1.010 LAB L400.3550 5.0 - 8.0 pH UR Normal 8.0 LAB L400.3600 Negative mg/dl PROT Normal DIPSTX Negative LAB L400.3700 Normal mg/dl Normal UROBILI Normal LAB L400.3750 Negative Normal NITRITE UR Negative LAB L400.3780 Negative /ul Normal OCCULT BLOOD-UR Negative LAB L400.3800 Negative /ul LEUK Normal ESTERASE Negative LAB L400.4050 0-5 /hpf WBC 0 Normal SEEN LAB L400.4100 0-5 /hpf 0 Normal RBC-UA SEEN LAB L400.4150 5-10 /hpf SQUAM Normal EPI 0-5 SEEN LAB L400.4300 None Seen /hpf 0 Normal BACTERIA SEEN LAB L400.4350 <or=2+ /hpf 0 Normal MUCUS, URINE SEEN Performed By: #### L400.0001 #### [facility] [address] [place], [place], [address] CBC W/DIFF, AUTOMATED Collected: 02/12/2018 Status: F Source: [place] 7:52 PM [facility] REPOSIT[facility] TYPE CODE TESTS RESULT OUT OF RANGE REFERENCE UNITS LAB L100.1000 4.4-11.0 K/mm3 Normal WBC 8.7 LAB L100.1200 4.2-5.4 M/mm3 Low RBC 4.07 LAB L100.1300 12.0-15.0 g/dl Normal HGB 12.9 LAB L100.1400 37-47 % Normal HCT 38.4 LAB L100.1500 81-99 fL Normal MCV 94.3 LAB L100.1600 27.0-32.0 pg Normal MCH 31.7 LAB L100.1700 32-36 g/gl Normal MCHC 33.6 LAB L100.1810 11.6-14.6 % Normal RDW CV 13.7 LAB L100.1820 35.1-43.9 fl High RDW SD 47.6 LAB L100.1900 150-450 K/mm3 Normal PLT 255 LAB L100.2000 6.2-12.0 fl Normal MPV 9.3 LAB L100.2100 47-70 % Normal NEUT% 56.1 LAB L100.2200 19-41 % Normal LY% 31.4 LAB L100.2300 0-10 % Normal MONO% 7.8 LAB L100.2400 0-5 % Normal EO% 4.0 LAB L100.2500 0-1 % Normal BASO% 0.6 LAB L100.2550 0.0-0.9 % Normal IM GRAN % 0.100 Result Comment: IG% - Immature Granulocytes (promyelocytes, myelocytes and metamyelocytes) > 1% indicates that a LEFT SHIFT is Present. LAB L100.2620 2.0-7.7 X10 3/uL Normal Absolute Neut 4.9 LAB L100.2720 0.83-4.51 X10 3/ul Normal Absolute Lymph 2.73 Performed By: #### L100.0100 #### [facility] [address] [place], [address] BASIC METABOLIC Collected: 02/12/2018 Status: F Source: [place] PROFILE (BMP) 7:52 PM [facility] REPOSITORY TYPE CODE TESTS RESULT OUT OF RANGE REFERENCE UNITS LAB L501.0100 74-106 mg/dL Normal GLU 90 Result Comment: Please note revised GLUCOSE reference range effective 2017. LAB L501.1000 7-18 mg/dL Normal BUN 8 LAB L501.1100 0.55-1.02 mg/dL Normal CREAT,SERUM 0.86 Result Comment: The validity of the calculated GFR AND GFRAA in patients over 70 years has not been determined. Clinical correlation is essential. LAB L501.1110 >60 mL/min Normal EST GFR 78 Result Comment: Non- GFR Calc LAB L501.1115 >60 mL/min Normal EST GFR - AA 94 Result Comment: GFR Calc LAB L501.1255 ml/min Normal Estimated CRCL 62.46 LAB L501.1300 10-20 RATIO Low BUN/CRE 9.3 LAB L501.2200 8.5-10 mg/dL Normal .1 CA 8.9 LAB L501.5300 136-14 mmol/L Normal 5 NA 141 LAB L501.5600 3.5-5. mmol/L Low 1 K 3.1 LAB L501.5900 98-107 mmol/L Normal CL 107 LAB L501.6100 21.0-3 mmol/L Normal 2.0 CO2 28.0 LAB L501.6200 5-15 Normal GAP 6 Performed By: #### L500.2500, L500.3400, L501.2450 #### [facility] [address] [facility] [place], [address] LIVER PROFILE Collected: 02/12/2018 Status: F Source: [place] 7:52 PM [facility] REPOS[facility] TYPE CODE TESTS RESULT OUT OF RANGE REFERENCE UNITS LAB L501.1500 6.4-8.2 g/dL Normal T PROT 6.8 LAB L501.1800 3.2-5.0 g/dL Normal ALB 3.6 LAB L501.1950 2.2-4.2 g/dL Normal GLOB 3.2 LAB L501.4100 15-37 U/L Normal AST 19 LAB L501.4305 45-117 U/L Normal ALK P 65 LAB L501.4405 13-56 U/L Normal ALT 19 LAB L501.4600 0.20-1.00 mg/dL Normal T BILI 0.40 LAB L501.4700 0.00-0.30 mg/dL Normal D BILI 0.11 Performed By: #### L500.2500, L500.3400, L501.2450 #### [facility] [address] [place], [address] LIPASE Collected: 02/12/2018 Status: F Source: [place] 7:52 PM [facility] REPOSITORY TYPE CODE TESTS RESULT OUT OF RANGE REFERENCE UNITS LAB L501.2450 73-393 U/L Normal LIPASE 206 Performed By: #### L500.2500, L500.3400, L501.2450 #### [facility] [address] [place], [address] ABDOMEN/PELVIS WITH Observed: 02/12/2018 Status: F Source: [place] CONTRAST 7:37 PM [facility] REPOSITORY [facility] Imaging Services [address] [facility] [place] [address] Abdomen/Pelvis WITH Contrast MR#: [id number] Acct: [id number] Name: DALIA BELLA Rep #: [id number] : 1975 F 42 From: Marino Miranda MD PCP: Cornelius Erwin MD Status: REG ER Study: Abdomen/Pelvis WITH Contrast Date of Exam: 02/12/18 Exam# [id number] Ordering Dr: Judith Macario MD STUDY: CT ABDOMEN AND PELVIS WITH CONTRAST REASON FOR EXAM: Female, 42 years old. Left lower quadrant abdominal pain RADIATION DOSAGE (If Supplied By Facility): CTDIvol = ( 8.89 ) mGy, DLP = ( 373.12 ) mGycm TECHNIQUE: Transaxial images were obtained from the dome of the diaphragm to the symphysis pubis without oral contrast. 100ML ml of Isovue 300 contrast was administered. Sagittal and coronal images were reconstructed. Individualized dose optimization techniques were used for this CT. COMPARISON: None. FINDINGS: Patchy groundglass opacities at the lung bases. The visualized portions of the heart are within normal limits. Normal liver. Normal gallbladder and extrahepatic biliary system. Normal spleen. Normal pancreas. Normal bilateral adrenal glands. Normal right kidney. Normal left kidney. Normal visualized stomach. Normal small intestine. Normal colon. The appendix is visualized and appears normal. Normal abdominal aorta. Normal inferior vena cava. Normal retroperitoneum. Normal urinary bladder. Bilateral effusions or tubes. Normal abdominal wall. Normal osseous structures. CT/Abdomen/Pelvis WITH Contrast IMPRESSION: No acute disease to explain left lower quadrant pain. Electronically Signed: Marino Miranda MD at 22:00 EDT , Service support , CC: Judith Macario MD; Cornelius Erwin MD Cougar Hunter: Signed PROGRESS Observed: 02/10/2018 Status: COMPLETED Source: [place] 12:00 PM [facility] REPOSITORY HNO ID: [id number] Author: Jordyn Lopez (Gino), TOM Service: (none) Author Type: Physician Suction Plate Roller Hand Type: Progress Notes Filed: 02/17/2018 11:09 PM Note Text: SKIN EXAM NEW CC: This patient is a 42 year old female. Patient presents with: Full Body Skin Check HPI: -Presents today for full body skin check -The patient is originally made the appointment for hives that are currently resolved -She notes they developed after starting nystatin for thrush, they resolved after a few weeks with benadryl for symptom relief -The patient is concerned with a lesion located on the left hand, it was previously biopsied- hypertrophic actinic keratosis -The area is currently asymptomatic -Personal history of skin cancer: No -History of blistering sunburns:Yes -Family history of skin cancer: Yes- father SOC: Social History Substance Use Topics - Smoking status: Current Every Day Smoker Packs/day: 1.00 Years: 4.00 Types: Cigarettes - Smokeless tobacco: Never Used - Alcohol use Yes Comment: occasionally MEDS: Current outpatient prescriptions: Current Outpatient Prescriptions on File Prior to Visit: acetaminophen (TYLENOL) 325 mg tablet Take 2 tablets by mouth every 6 hours as needed for Pain (for pain.). ibuprofen (MOTRIN) 600 mg tablet Take 1 tablet by mouth every 6 hours as needed for Pain. cyclobenzaprine (FLEXERIL) 10 mg tablet TAKE 1 TABLET BY MOUTH ONCE DAILY AT BEDTIME gabapentin (NEURONTIN) 300 mg capsule Take 1 capsule by mouth three times daily for 90 days. sertraline (ZOLOFT) 100 mg tablet Take 1 tablet by mouth once daily. GINSENG ORAL Take 2 tablets by mouth once daily. No current facility-administered medications on file prior to visit. ALLERGY: ALLERGIES Allergen Reactions - Nystatin Hives Thinks it is what caused hives to start PAST MEDICAL HISTORY: No chronic skin disease or skin cancer FAMILY HISTORY: No chronic skin disease or skin cancer REVIEW OF SYSTEMS: Patient feels well and denies any recent fevers, chills, or nightsweats. Skin: lesion on left hand PHYSICAL EXAM: The patient is a pleasant female in no distress. Patient is healthy, well developed, well nourished and in otherwise good health. she is alert and oriented x 3. A skin exam was done of the scalp, face including eyelids and lips, ears, neck, chest, back, abdomen, bilateral upper extremities including digits, bilateral lower extremities including digits, buttocks, neck, nails. Nelson Skin Type: II IMPRESSION: Scaly erythematous papule to the left methodist x1 Lichenified papules throughout Densely scattered light blakely macules noted on all sun exposed areas Regular and symmetric hyperpigmented macules throughout Brown stuck on plaques throughout Small king red papules throughout A/P: 1) Actinic keratosis-discussed treatment options, recommend LN2 PROCEDURE: Cryosurgery of non-malignant lesion(s) Risks, benefits, alternatives and personnel required for cryosurgery reviewed with patient. Pt verbalizes understanding and wishes to proceed. Cryosurgery performed with Liquid Nitrogen via cryostat spray gun to actinic Keratoses . 1 lesions treated. Wound care instructions provided, pt verbalizes understanding. Hayde Glass APRN.SERIALS LIBRARIAN 2) Solar lentigines, Clinically benign appearing nevi, Angiomas, Seborrheic Keratoses, Benign lichenoid keratoses- reassured and educated, Sunscreen / sunblock protection reviewed. Follow up in 1 year and PRN Hayde Glass APRN.SERIALS LIBRARIAN- Training Jordyn Lopez PA-C Attending: Dr. Lewis The documentation for this note was completed by Alba Carrillo LPN acting as scribe for Jordyn Lopez PA-C, PA. February 10, 2018 12:04 PM. I agree with the Chief Complaint, ROS, and Past Histories independently gathered by the clinical operations support manager and the remaining scribed note accurately describes my personal service to the patient. CNOV Observed: 02/10/2018 Status: COMPLETED Source: [place] 12:00 PM [facility] REPOSITORY Office Visit (DERMST) DALIA BELLA ([id number]) 1975 F Date Time Provider Department 02/10/18 12:00 PM JORDYN LOPEZ) DERM During your visit today, we recorded the following information about you: Jordyn Lopez)TOM 02/17/2018 11:09 PM Signed SKIN EXAM NEW CC: This patient is a 42 year old female. Patient presents with: Full Body Skin Check HPI: -Presents today for full body skin check -The patient is originally made the appointment for hives that are currently resolved -She notes they developed after starting nystatin for thrush, they resolved after a few weeks with benadryl for symptom relief -The patient is concerned with a lesion located on the left hand, it was previously biopsied- hypertrophic actinic keratosis -The area is currently asymptomatic -Personal history of skin cancer: No -History of blistering sunburns:Yes -Family history of skin cancer: Yes- father SOC: Social History Substance Use Topics - Smoking status: Current Every Day Smoker Packs/day: 1.00 Years: 4.00 Types: Cigarettes - Smokeless tobacco: Never Used - Alcohol use Yes Comment: occasionally MEDS: Current outpatient prescriptions: Current Outpatient Prescriptions on File Prior to Visit: acetaminophen (TYLENOL) 325 mg tablet Take 2 tablets by mouth every 6 hours as needed for Pain (for pain.). ibuprofen (MOTRIN) 600 mg tablet Take 1 tablet by mouth every 6 hours as needed for Pain. cyclobenzaprine (FLEXERIL) 10 mg tablet TAKE 1 TABLET BY MOUTH ONCE DAILY AT BEDTIME gabapentin (NEURONTIN) 300 mg capsule Take 1 capsule by mouth three times daily for 90 days. sertraline (ZOLOFT) 100 mg tablet Take 1 tablet by mouth once daily. GINSENG ORAL Take 2 tablets by mouth once daily. No current facility-administered medications on file prior to visit. ALLERGY: ALLERGIES Allergen Reactions - Nystatin Hives Thinks it is what caused hives to start PAST MEDICAL HISTORY: No chronic skin disease or skin cancer FAMILY HISTORY: No chronic skin disease or skin cancer REVIEW OF SYSTEMS: Patient feels well and denies any recent fevers, chills, or nightsweats. Skin: lesion on left hand PHYSICAL EXAM: The patient is a pleasant female in no distress. Patient is healthy, well developed, well nourished and in otherwise good health. she is alert and oriented x 3. A skin exam was done of the scalp, face including eyelids and lips, ears, neck, chest, back, abdomen, bilateral upper extremities including digits, bilateral lower extremities including digits, buttocks, neck, nails. Nelson Skin Type: II IMPRESSION: Scaly erythematous papule to the left methodist x1 Lichenified papules throughout Densely scattered light blakely macules noted on all sun exposed areas Regular and symmetric hyperpigmented macules throughout Brown stuck on plaques throughout Small king red papules throughout A/P: 1) Actinic keratosis-discussed treatment options, recommend LN2 PROCEDURE: Cryosurgery of non-malignant lesion(s) Risks, benefits, alternatives and personnel required for cryosurgery reviewed with patient. Pt verbalizes understanding and wishes to proceed. Cryosurgery performed with Liquid Nitrogen via cryostat spray gun to actinic Keratoses . 1 lesions treated. Wound care instructions provided, pt verbalizes understanding. Hayde Glass APRN.SERIALS LIBRARIAN 2) Solar lentigines, Clinically benign appearing nevi, Angiomas, Seborrheic Keratoses, Benign lichenoid keratoses- reassured and educated, Sunscreen / sunblock protection reviewed. Follow up in 1 year and PRN Hayde Glass APRN.SERIALS LIBRARIAN- Training Jordyn Lopez PA-C Attending: Dr. Lewis The documentation for this note was completed by Alba Carrillo LPN acting as scribe for Jordyn Lopez PA-C, PA. February 10, 2018 12:04 PM. I agree with the Chief Complaint, ROS, and Past Histories independently gathered by the clinical operations support manager and the remaining scribed note accurately describes my personal service to the patient. Hayde Glass ([facility]) 02/10/2018 12:30 PM Signed [facility] Liquid Nitrogen Therapy Care Instructions 1. The area may be red and puffy. Cool compress or a washcloth will help with the discomfort. 2. A blister, even a blood blister, may form. You will feel better if you break it. Use a sterile needle and gently squeeze out the fluid. 3. Clean area with soap and water daily. A band aid is not necessary, but may be used for protection. Change it daily. Do not leave a soiled or wet band aid on the wound. 4. Apply vaseline daily until scab comes off. 5. Aspirin, Tylenol, or Ibuprophen may be used for pain. 6. As soon as scab has formed, you do not need to cleanse area and you may leave the bandage off. The scab will generally fall off in 3-4 weeks on the face, but may take longer on the other areas of the body. 7. Call if you have any problems or questions or if these areas recur or do not go away Referring Provider: SELF [[id number]] Allergies As of Date: 02/10/2018 Noted Allergy Reaction NYSTATIN 02/10/2018 4 - Hives Comments: Thinks it is what caused hives to start Date Reviewed: 02/10/2018 Reviewed by: Alba Carrillo LPN - Fully Assessed Reason for Visit: Full Body Skin Check [1445] Primary Visit Diagnosis:AK (actinic keratosis) [L57.0] Other Visit Diagnoses:Benign lichenoid keratosis [L82.1] Solar lentigo [L81.4] Seborrheic keratosis [L82.1] Angioma of skin [D18.01] Multiple benign nevi [D22.9] Prescriptions as of 02/10/2018 Sig: ACETAMINOPHEN 325 MG TABLET Take 2 tablets by mouth every* IBUPROFEN 600 MG TABLET Take 1 tablet by mouth every * CYCLOBENZAPRINE 10 MG TABLET TAKE 1 TABLET BY MOUTH ONCE D* GABAPENTIN 300 MG CAPSULE Take 1 capsule by mouth three* SERTRALINE 100 MG TABLET Take 1 tablet by mouth once d* GINSENG ORAL Take 2 tablets by mouth once * Problem List As Of Date 02/10/2018 Noted Resolved TENSION HEADACHE [G44.209] INVALID FOR* MIGRAINE NOS W/O MENTN INTRACTABLE [G43.909] INVALID FOR* SPRAIN OF NECK [S13.9XXA] INVALID FOR* Insomnia [G47.00] INVALID FOR* Backache, unspecified [M54.9] INVALID FOR* Cervicalgia [M54.2] INVALID FOR* Panic attacks [F41.0] INVALID FOR* Family history of coronary artery disease [Z82.*INVALID FOR* Hyperlipidemia [E78.5] INVALID FOR* Tobacco use [Z72.0] INVALID FOR* Snoring [R06.83] INVALID FOR* Generalized anxiety disorder [F41.1] INVALID FOR* Lumbosacral neuritis [M54.17] INVALID FOR* Anal fistula [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 Other instructions from your clinician: [facility] Liquid Nitrogen Therapy Care Instructions 1. The area may be red and puffy. Cool compress or a washcloth will help with the discomfort. 2. A blister, even a blood blister, may form. You will feel better if you break it. Use a sterile needle and gently squeeze out the fluid. 3. Clean area with soap and water daily. A band aid is not necessary, but may be used for protection. Change it daily. Do not leave a soiled or wet band aid on the wound. 4. Apply vaseline daily until scab comes off. 5. Aspirin, Tylenol, or Ibuprophen may be used for pain. 6. As soon as scab has formed, you do not need to cleanse area and you may leave the bandage off. The scab will generally fall off in 3-4 weeks on the face, but may take longer on the other areas of the body. 7. Call if you have any problems or questions or if these areas recur or do not go away Disposition: Return for 1 year FBSE. Follow-up and Disposition History Recorded Encounter Status:Closed by JORDYN LOPEZ PA-C on 02/17/18 CNCO Observed: 01/24/2018 Status: COMPLETED Source: [place] 12:00 AM [facility] REPOSITORY HNO ID: [id number] Author: Prakash Gale Service: (none) Author Type: Physician Type: Letter Filed: 01/28/2018 2:50 PM Note Text: January 24, 2018 Slick Erwin M.D. [address] [place] [id number] NAME: Dalia Bella CLINIC NO.: [id number] DATE OF SERVICE: 01/24/[address] Erwin: I had seen your patient, Dalia Bella on January 01, 2018. Ms. Bella is a 42-year-old woman who had had incision and drainage of an abscess some months ago, who continued to have problems. The wound never healed and the process had continued for over 6 months. When I examined her, it was uncomfortable. There is a small skin opening that could be probed for a distance of 2 cm, but there is no demonstrable fistula at that time. Anoscopy was uncomfortable to perform and I recommended an examination under anesthetic to define the anatomy and pathology and treat. 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 I performed a fistulotomy and Mrs. Bella was discharged later in the day. I plan to see her for followup and will keep you informed of her progress. Yours faithfully, Prakash Gale MD cc: Dalia Bella Date Dictated: 01/24/2018 Date Typed: [facility] 01/25/2018 JOB# [id number] ANES POST Observed: 01/21/2018 Status: COMPLETED Source: [place] 11:10 AM [facility] REPOSITORY HNO ID: [id number] Author: Freddie Noble Service: Anesthesiology Author Type: Anesthesiologist Type: Anesthesia PostOp Filed: 01/21/2018 11:11 AM Note Text: POST ANESTHESIA EVALUATION NOTE SERVICE DATE: 01/21/2018 SERVICE TIME: 9:55 : 1975 Vitals: 01/21/18 0645 01/21/18 0848 01/21/18 0945 01/21/18 1000 Temp: 36.6 ?C (97.9 ?F) 36.6 ?C (97.9 ?F) 36.4 ?C (97.5 ?F) 36.3 ?C (97.3 ?F) 01/21/18 0915 01/21/18 0930 01/21/18 0945 01/21/18 1000 BP: 106/59 105/57 104/61 113/65 01/21/18 0915 01/21/18 0930 01/21/18 0945 01/21/18 1000 Pulse: 89 90 88 87 01/21/18 0915 01/21/18 0930 01/21/18 0945 01/21/18 1000 Resp: 20 19 18 16 01/21/18 0915 01/21/18 0930 01/21/18 0945 01/21/18 1000 SpO2: 98% 97% 97% 95% Validated Vital Signs: HR: 86; BP: 105/62; RR: 14; SpO2%: 97%; Temperature: 36.4 POST ANES STATUS: No apparent anesthetic complications. The patient is appropriately hydrated with stable respiratory and cardiovascular status. Patient has safe and adequate airway control. The patient has appropriate pain relief and no significant post operative nausea or vomiting. The patient has achieved baseline mental status. Further assessment by Anesthesia Service: None Other Remarks: SIGNATURE: Freddie Noble MD PATIENT NAME: Dalia Bella DATE: January 21, 2018 TIME: 11:10 AM PAGER/CONTACT #: [phone] NURSING PROG Observed: 01/21/2018 Status: COMPLETED Source: [place] 10:49 AM [facility] REPOSITORY HNO ID: [id number] Author: Coni (Rn) JENNIFER Patel Service: (none) Author Type: Registered Nurse Type: Nursing Progress Note Filed: 01/21/2018 10:49 AM Note Text: POST OP LEARNING RESPONSE INSTRUCTION PROVIDED TO: Patient and family member METHOD OF INSTRUCTION: Individual instruction Written instruction - handouts Verbal instruction PATIENT / FAMILY RESPONSE: Verbalizes understanding of: instructions FOLLOW-UP PLAN: Complete - No need for follow-up Patient instructed to call with any further issues SUPPLEMENTAL MATERIAL: None REFERRAL (RECOMMENDATION): None Electronically Signed By: Coni Patel RN In Department: [place] [id number] BRIEF OP NOT Observed: 01/21/2018 Status: COMPLETED Source: [place] 8:03 AM [facility] REPOSITORY HNO ID: [id number] Author: Ben Gardiner (Fel) Service: Colorectal Author Type: Fellow Type: Brief Op Note Filed: 01/21/2018 8:05 AM Note Text: BRIEF OPERATIVE NOTE - COLORECTAL SURGERY Log ID: [id number] Surgery/Procedure Date: 01/21/2018 Incision/Procedure Start Time: 7:47 AM Incision Close/Procedure End Time: 803am Surgeon(s) and Suction Plate Roller Hand(s): Surgeon(s) and Role: * Prakash Gale - Primary * Ben Gardiner (Fel) - Fellow No Additional Staff Procedures and Anesthesia: Exam under anesthesia Fistulotomy Stoma Type: N/A Findings: left lateral induration at site previously palpated in office. Small incision made over maximal area of fluctuance and purulence expressed. H202 AND methylene blue used to identify tract. Anterior tract unroof with fistulotomy. Estimated Blood Loss: Minimal Specimens: fistula tract Diagnosis Code(s): Pre-Op Diagnosis Codes: * Anal fistula [K60.3] * Anal fistula [K60.3] * Anal fistula [K60.3] Postop Diagnosis: same Drains: None Wound Classification: Class 4, operative dirty wound with fecal contamination Complications: None SIGNATURE: Ben Gardiner MD PATIENT NAME: Dalia Bella DATE: January 21, 2018 TIME: 8:03 AM PAGER/CONTACT #: PT ED Observed: 01/21/2018 Status: COMPLETED Source: [place] 6:33 AM [facility] REPOSITORY HNO ID: [id number] Author: Ana OchoaRnSridhar Leong RN Service: Nursing Author Type: Registered Nurse Type: Patient Education Filed: 01/21/2018 6:33 AM Note Text: PRE OP LEARNING ASSESSMENT PROCEDURE/SURGERY: SURGERY: Exam under anesthesia, possible Seton, possible fistulotomy READINESS TO LEARN COGNITIVE ABILITY: Alert and oriented MOTIVATION TO LEARN: Eager FAMILY SUPPORT: High - Very involved in pt care PATIENT LEARNS BEST BY: Individual Instruction FACTORS AFFECTING LEARNING: None PHYSICAL LIMITATIONS AFFECTING LEARNING: None Electronically Signed By: Ana Leong RN In Department: [place] [id number] SURGICAL PATHOLOGY Observed: 01/21/2018 Status: F Source: [place] 12:00 AM [facility] REPOSITORY Specimen originated from [facility] Specimen #: [id number] Submitting Physician: PRAKASH GALE ([id number]) FINAL DIAGNOSIS Fistula tract, fistulotomy - Skin with dermal and subcutaneous inflamed granulation tissue and dense fibrosis consistent with fistula site. JJ/dss 01/23/2018 Rose Moss M.D. (Electronic Signature) SPECIMEN SUBMITTED A: FISTULA TRACT CLINICAL DATA ANAL FISTULA GROSS DESCRIPTION A. Received fresh is a segment of blakely-pink soft tissue labeled fistula tract measuring 1.4 x 0.8 x 0.4 cm. The specimen was sectioned to reveal a possible fistula tract measuring 0.3 cm in maximum dimension and surrounded by blakely-white fibrous soft tissue. The specimen is totally submitted in cassette A1. PO/stacy 01/21/2018 Gross examination performed at [facility], [address] [place] [address] Date of Report: 01/23/2018 Date of Procedure: 01/21/2018 Date of Receipt: 01/21/2018 Submitted by: PRAKASH GALE ([id number]) Location: [id number] Diagnostic interpretation performed at [facility], [address] [place] [address]. OPERATIVE NO Observed: 01/21/2018 Status: COMPLETED Source: [place] 12:00 AM [facility] REPOSITORY HNO ID: [id number] Author: Prakash Gale Service: (none) Author Type: Physician Type: Operative Report Filed: 01/24/2018 10:43 AM Note Text: [place] [id number] [place] OPERATIVE REPORT NAME: DALIA BELLA [facility] #: [id number] DATE: 01/21/2018 AGE: 42 SURGEON 1: Prakash Gale M.D. SURGEON 2: SILK WEAVER 1: Dr. Gardiner SILK WEAVER 2: OPERATION: Examination under anesthetic and fistulotomy. ANESTHESIA: General anesthetic. PREOPERATIVE DIAGNOSIS: Perianal abscess. POSTOPERATIVE DIAGNOSIS: [id number]. OPERATIVE INDICATIONS: Pathology is identified as a woman, who had been operated on in the past with drainage of an abscess and examination under anesthetic, but the infection persisted for more than 6 months. On examination in the left anterior quadrant of the perianal area, there was a small skin opening that was able to be probed for at least 2 cm. At the time, the clinical examination did not demonstrate an internal opening, but the use of hydrogen peroxide and methylene blue confirmed the suspicion of a fistula to the midline anteriorly in the anal gland. Further examination did not reveal any other pathology. OPERATIVE FINDINGS: OPERATIVE PROCEDURE: The patient was placed supine on the operating table, given a general anesthetic, and transferred to the Kraske position to permit satisfactory examination and treatment. When in the Kraske position, the examination was performed with the above findings. A probe was gently passed from the internal opening to the external opening and a fistula tract was laid opened and clearly defined. The wound was tailored to allow satisfactory healing and dressed and the patient will be allowed to be discharged later in the day. The procedure was uneventful and the patient was transferred to the recovery room in good condition. I was assisted by Dr. Gardiner. ESTIMATED BLOOD LOSS: DRAINS: SPECIMENS: Prakash Gale M.D. IL:[id number] /[id number] cc: MAO Observed: 01/20/2018 Status: COMPLETED Source: [place] 2:45 PM [facility] REPOSITORY Office Visit (IMPAMN) DALIA BELLA ([id number]) 1975 F Date Time Provider Department 01/20/18 2:45 PM YAMILKA DORSEY During your visit today, we recorded the following information about you: Temperature Pulse Blood pressure Weight 98.3 degrees 86/minute 107/64 56.2 kg Height 1.524 m Hiral Irizarry LPN 01/20/2018 2:49 PM Signed Dalia Bella is a 42 year old female here today for visit in [facility] Referring Surgeon: Dr. Gale Date of Surgery: 01/21/2018 Planned Surgery/Procedure: EXAM UNDER ANESTHESIA RE Allergies have been reviewed and verified. They include the following: Review of patient's allergies indicates no known allergies. Social History Substance Use Topics - Smoking status: Current Every Day Smoker Packs/day: 1.00 Years: 4.00 Types: Cigarettes - Smokeless tobacco: Never Used - Alcohol use Yes Comment: occasionally Medications reviewed and updated: Yes Hiral Dorsey MD 01/20/2018 2:49 PM Signed HISTORY AND PHYSICAL EXAMINATION ([facility]) SERVICE DATE: 01/20/2018 SERVICE TIME: 2:40 PM PRIMARY CARE PHYSICIAN: Slick Erwin MD CHIEF COMPLAINT/HISTORY OF PRESENT ILLNESS: Ms. Bella is a 42 year old female referred to me for preoperative evaluation. My final recommendations will be communicated back to the requesting physician/surgeon by the way of the shared medical record. Referring Surgeon: Dr. Gale Date of Surgery: Tomorrow Planned Surgery/Procedure: Perianal abscess drainage, EUA, fistulotomy, seton placement Indication for Planned Surgery / Procedure: 42 y/o woman with a perirectal cyts that was removed in Jun. Since then has been having drainage from the area on and off with abscesses. Refer to Assessment section for details of any comorbidities. Patient is Able to Perform the Following Physical Activity: Climb a flight of stairs or walk up a hill (5.50 METs) Patient's functional class is II based on self-reported physical activity. Significant Anesthesia Considerations: None. PAST MEDICAL/SURGICAL/FAMILY/SOCIAL HISTORY PAST MEDICAL HISTORY Diagnosis Date - Anal fistula - Backache, unspecified - Depression - Headache(784.0) - Menorrhagia - Perianal cyst PAST SURGICAL HISTORY Procedure Laterality Date - ESSURE 2010 - PAST SURGICAL HISTORY OF 06/2017 Excision of left perianal cystic lesion, exam under - PAST SURGICAL HISTORY OF Fallopian tube coils FAMILY HISTORY Problem Relation Age of Onset - Heart Mother 40 Double by-pass - Hypertension Father - Heart Maternal Grandmother - Alzheimer's Disease Maternal Grandmother Greatgrandmother - Diabetes Maternal Grandmother - Heart Maternal Grandfather - Diabetes Maternal Grandfather - Alzheimer's Disease Paternal Grandmother Greatgrandmother - Hypertension Paternal Grandfather - Hypertension Brother - Heart Maternal Uncle - Breast Cancer Paternal Aunt Two Aunts SOCIAL HISTORYSocial History Marital status: Single Spouse name: Years of education: 12 Number of children: 3 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 Disp: Rfl: fluconazole (DIFLUCAN) 200 mg tablet Take 1 tablet by mouth once daily for 7 days. Disp: 7 tablet Rfl: 0 cyclobenzaprine (FLEXERIL) 10 mg tablet TAKE 1 TABLET BY MOUTH ONCE DAILY AT BEDTIME Disp: 30 tablet Rfl: 2 gabapentin (NEURONTIN) 300 mg capsule Take 1 capsule by mouth three times daily for 90 days. Disp: 90 capsule Rfl: 2 sertraline (ZOLOFT) 100 mg tablet Take 1 tablet by mouth once daily. Disp: 30 tablet Rfl: 1 No current facility-administered medications for this visit. ALLERGIES No Known Allergies REVIEW OF SYSTEMS General: No weight loss, malaise or fevers. 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 No neurological symptoms or problems. Respiratory: URI ANDlt; 2 weeks recovered by itself Cardiovascular: No history of HTN requiring medication, no history of angina, CHF, [place], cardiac surgery or stents. Denies rest pain, gangrene or revascularization/amputation for PVD. No history of cardiovascular symptoms or problems. GI: No history of GI symptoms or problems. No history of esophageal varices, recent ascites, or ETOH greater than 2 drinks per day. : No history of UTI in past 6 weeks. No history of renal failure. Not currently on or requiring dialysis. No history of symptoms or problems. 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 Has not taken steroids within the past 30 days. No history of endocrinological symptoms or problems. Hematology: No history of bleeding or clotting disorder. No history of hematological symptoms or problems. Oncology: No history of CA metastasis, chemo within 30 days, or radiotherapy within 90 days. No history of oncological symptoms or problems. Psych: No history of psychiatric symptoms or problems. Skin: Negative for lesions, rash, and itching. PHYSICAL EXAM VITALS: BP 107/64 Pulse 86 Temp (Src) 98.3 (Oral) Ht 5' 0ANDquot; (1.52m) Wt 124 lb (56.2kg) SpO2 99% LMP 01/19/2018 BMI 24.22 kg/(m2). General: Alert and oriented Skin: Normal color, no rash, no lesions. HEENT: EOM, pupils equal, round and reactive. Cardiovascular: Normal S1 ANDamp; S2, no rubs, murmurs or gallops. No JVD. Pulse regular. Lungs: Normal breath sounds, no wheezes or crackles. Abdomen: Soft, non-tender, no rigidity. Extremities: No deformity, no edema or tenderness, no joint swelling or clubbing. Neurological: Normal cognition and motor skills. Pulses: Carotid and radial pulses normal +2. ASSESSMENT Ms. Bella is a 42 year old female referred to me for preoperative evaluation. Patient has the following medical comorbidities which might affect the perioperative course: - Recurrent oral thrush - Perirectal abscess/fistula - Depression Patient's RCRI (Revised Cardiac Risk Index: CAD/CHF/Stroke or TIA/SCrANDgt;2/DM on Insulin/High Risk Surgery) score is 0 and is at low risk for major adverse cardiac events in the perioperative period. Diagnostic tests reviewed for today's visit: Most recent labs PLAN/RECOMMENDATIONS CARDIAC: Patient is at optimal cardiac condition for scheduled surgery / procedure. PULMONARY: Patient is at optimal Pulmonary status for scheduled surgery / procedure. Patient is optimally prepared for surgery. Patient Instructions: As per patient instructions section. I have discussed the above recommendations with the patient in detail, in ambrocio and lay terms, and provided a written summary of instructions as needed. We have discussed that no surgery is without risk, but that the goal of preoperative assessment is to optimize that risk, and that was clearly understood by the patient. I have given ample opportunity for the patient to ask questions, and answered all questions to their stated satisfaction. SIGNATURE: Yamilka Dorsey MD PATIENT NAME: Dalia Bella DATE: January 20, 2018 TIME: 2:40 PM Yamilka Dorsey MD 01/20/2018 2:49 PM Signed [facility] Patient Instructions for Surgery FOOD INSTRUCTIONS: NO solid food or non-clear liquids for 8 hours prior to the arrival time for your surgery. Unless you are instructed otherwise, you are allowed to drink up to 12 ounces of clear liquids (e.g. water, black tea/coffee, fruit juice without pulp, Vanessa Cherie, etc.) up until 2 hours prior to the arrival time for surgery. MEDICATION INSTRUCTIONS: Prior to Surgery: Do not take the following medications for 7 days prior to surgery: - any NSAID's (e.g. Motrin, Aleve, Arthrotec, Naproxen,etc) - any herbal preparations - Aspirin or aspirin containing products - Plavix Do not take any Vitamin E / multivitamins for 10-14 days before surgery You are allowed to take Tylenol if needed until the day of surgery. MEDICATION INSTRUCTIONS: Day/Morning of Surgery: The following medications should be taken with sips of water: None Tylenol, if needed for pain, can be taken on morning of surgery. If you have any questions or concerns regarding today's visit please do not hesitate to contact the [facility] at [phone] or [phone], ext [phone]. Signature: Yamilka Dorsey MD Date: January 20, 2018 Referring Provider: PRAKASH GALE [[id number]] Allergies As of Date: 01/20/2018 (No Known Allergies) Date Reviewed: 01/20/2018 Reviewed by: Hiral Irizarry LPN - Fully Assessed Primary Visit Diagnosis:Pre-operative examination [Z01.818] Other Visit Diagnoses:Anal fistula [K60.3] Lumbosacral neuritis [M54.17] Prescriptions as of 01/20/2018 Sig: GINSENG ORAL Take 2 tablets by mouth once * FLUCONAZOLE 200 MG TABLET Take 1 tablet by mouth once d* CYCLOBENZAPRINE 10 MG TABLET TAKE 1 TABLET BY MOUTH ONCE D* GABAPENTIN 300 MG CAPSULE Take 1 capsule by mouth three* SERTRALINE 100 MG TABLET Take 1 tablet by mouth once d* Problem List As Of Date 01/20/2018 Noted Resolved TENSION HEADACHE [G44.209] INVALID FOR* MIGRAINE NOS W/O MENTN INTRACTABLE [G43.909] INVALID FOR* SPRAIN OF NECK [S13.9XXA] INVALID FOR* Insomnia [G47.00] INVALID FOR* Backache, unspecified [M54.9] INVALID FOR* Cervicalgia [M54.2] INVALID FOR* Panic attacks [F41.0] INVALID FOR* Family history of coronary artery disease [Z82.*INVALID FOR* Hyperlipidemia [E78.5] INVALID FOR* Tobacco use [Z72.0] INVALID FOR* Snoring [R06.83] INVALID FOR* Generalized anxiety disorder [F41.1] INVALID FOR* Lumbosacral neuritis [M54.17] INVALID FOR* Anal fistula [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 Other instructions from your clinician: [facility] Patient Instructions for Surgery FOOD INSTRUCTIONS: NO solid food or non-clear liquids for 8 hours prior to the arrival time for your surgery. Unless you are instructed otherwise, you are allowed to drink up to 12 ounces of clear liquids (e.g. water, black tea/coffee, fruit juice without pulp, Vanessa Cherie, etc.) up until 2 hours prior to the arrival time for surgery. MEDICATION INSTRUCTIONS: Prior to Surgery: Do not take the following medications for 7 days prior to surgery: - any NSAID's (e.g. Motrin, Aleve, Arthrotec, Naproxen,etc) - any herbal preparations - Aspirin or aspirin containing products - Plavix Do not take any Vitamin E / multivitamins for 10-14 days before surgery You are allowed to take Tylenol if needed until the day of surgery. MEDICATION INSTRUCTIONS: Day/Morning of Surgery: The following medications should be taken with sips of water: None Tylenol, if needed for pain, can be taken on morning of surgery. If you have any questions or concerns regarding today's visit please do not hesitate to contact the [facility] at [phone] or [phone], [phone]. Signature: Yamilka Dorsey MD Date: January 20, 2018 Encounter Status:Closed by YAMILKA DORSEY MD on 01/20/18 HISTORY PHYSICAL Observed: 01/20/2018 Status: COMPLETED Source: [place] 2:40 PM [facility] REPOSITORY O ID: [id number] Author: Yamilka Dorsey Service: (none) Author Type: Physician Type: HANDP Filed: 01/20/2018 2:49 PM Note Text: HISTORY AND PHYSICAL EXAMINATION ([facility]) SERVICE DATE: 01/20/2018 SERVICE TIME: 2:40 PM PRIMARY CARE PHYSICIAN: Slick Erwin MD CHIEF COMPLAINT/HISTORY OF PRESENT ILLNESS: Ms. Bella is a 42 year old female referred to me for preoperative evaluation. My final recommendations will be communicated back to the requesting physician/surgeon by the way of the shared medical record. Referring Surgeon: Dr. Gale Date of Surgery: Tomorrow Planned Surgery/Procedure: Perianal abscess drainage, EUA, fistulotomy, seton placement Indication for Planned Surgery / Procedure: 42 y/o woman with a perirectal cyts that was removed in Jun. Since then has been having drainage from the area on and off with abscesses. Refer to Assessment section for details of any comorbidities. Patient is Able to Perform the Following Physical Activity: Climb a flight of stairs or walk up a hill (5.50 METs) Patient's functional class is II based on self-reported physical activity. Significant Anesthesia Considerations: None. PAST MEDICAL/SURGICAL/FAMILY/SOCIAL HISTORY PAST MEDICAL HISTORY Diagnosis Date - Anal fistula - Backache, unspecified - Depression - Headache(784.0) - Menorrhagia - Perianal cyst PAST SURGICAL HISTORY Procedure Laterality Date - ESSURE 2010 - PAST SURGICAL HISTORY OF 06/2017 Excision of left perianal cystic lesion, exam under - PAST SURGICAL HISTORY OF Fallopian tube coils FAMILY HISTORY Problem Relation Age of Onset - Heart Mother 40 Double by-pass - Hypertension Father - Heart Maternal Grandmother - Alzheimer's Disease Maternal Grandmother Greatgrandmother - Diabetes Maternal Grandmother - Heart Maternal Grandfather - Diabetes Maternal Grandfather - Alzheimer's Disease Paternal Grandmother Greatgrandmother - Hypertension Paternal Grandfather - Hypertension Brother - Heart Maternal Uncle - Breast Cancer Paternal Aunt Two Aunts SOCIAL HISTORYSocial History Marital status: Single Spouse name: Years of education: 12 Number of children: 3 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 Disp: Rfl: fluconazole (DIFLUCAN) 200 mg tablet Take 1 tablet by mouth once daily for 7 days. Disp: 7 tablet Rfl: 0 cyclobenzaprine (FLEXERIL) 10 mg tablet TAKE 1 TABLET BY MOUTH ONCE DAILY AT BEDTIME Disp: 30 tablet Rfl: 2 gabapentin (NEURONTIN) 300 mg capsule Take 1 capsule by mouth three times daily for 90 days. Disp: 90 capsule Rfl: 2 sertraline (ZOLOFT) 100 mg tablet Take 1 tablet by mouth once daily. Disp: 30 tablet Rfl: 1 No current facility-administered medications for this visit. ALLERGIES No Known Allergies REVIEW OF SYSTEMS General: No weight loss, malaise or fevers. 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 No neurological symptoms or problems. Respiratory: URI < 2 weeks recovered by itself Cardiovascular: No history of HTN requiring medication, no history of angina, CHF, [place], cardiac surgery or stents. Denies rest pain, gangrene or revascularization/amputation for PVD. No history of cardiovascular symptoms or problems. GI: No history of GI symptoms or problems. No history of esophageal varices, recent ascites, or ETOH greater than 2 drinks per day. : No history of UTI in past 6 weeks. No history of renal failure. Not currently on or requiring dialysis. No history of symptoms or problems. 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 Has not taken steroids within the past 30 days. No history of endocrinological symptoms or problems. Hematology: No history of bleeding or clotting disorder. No history of hematological symptoms or problems. Oncology: No history of CA metastasis, chemo within 30 days, or radiotherapy within 90 days. No history of oncological symptoms or problems. Psych: No history of psychiatric symptoms or problems. Skin: Negative for lesions, rash, and itching. PHYSICAL EXAM VITALS: BP 107/64 Pulse 86 Temp (Src) 98.3 (Oral) Ht 5' 0 (1.52m) Wt 124 lb (56.2kg) SpO2 99% LMP 01/19/2018 BMI 24.22 kg/(m2). General: Alert and oriented Skin: Normal color, no rash, no lesions. HEENT: EOM, pupils equal, round and reactive. Cardiovascular: Normal S1 AND S2, no rubs, murmurs or gallops. No JVD. Pulse regular. Lungs: Normal breath sounds, no wheezes or crackles. Abdomen: Soft, non-tender, no rigidity. Extremities: No deformity, no edema or tenderness, no joint swelling or clubbing. Neurological: Normal cognition and motor skills. Pulses: Carotid and radial pulses normal +2. ASSESSMENT Ms. Bella is a 42 year old female referred to me for preoperative evaluation. Patient has the following medical comorbidities which might affect the perioperative course: - Recurrent oral thrush - Perirectal abscess/fistula - Depression Patient's RCRI (Revised Cardiac Risk Index: CAD/CHF/Stroke or TIA/SCr>2/DM on Insulin/High Risk Surgery) score is 0 and is at low risk for major adverse cardiac events in the perioperative period. Diagnostic tests reviewed for today's visit: Most recent labs PLAN/RECOMMENDATIONS CARDIAC: Patient is at optimal cardiac condition for scheduled surgery / procedure. PULMONARY: Patient is at optimal Pulmonary status for scheduled surgery / procedure. Patient is optimally prepared for surgery. Patient Instructions: As per patient instructions section. I have discussed the above recommendations with the patient in detail, in ambrocio and lay terms, and provided a written summary of instructions as needed. We have discussed that no surgery is without risk, but that the goal of preoperative assessment is to optimize that risk, and that was clearly understood by the patient. I have given ample opportunity for the patient to ask questions, and answered all questions to their stated satisfaction. SIGNATURE: Yamilka Dorsey MD PATIENT NAME: Dalia Bella DATE: January 20, 2018 TIME: 2:40 PM PROGRESS Observed: 01/20/2018 Status: COMPLETED Source: [place] 2:04 PM [facility] REPOSITORY HNO ID: [id number] Author: Hiral Irizarry INTERIOR DECORATOR Service: (none) Author Type: (none) Type: Progress Notes Filed: 01/20/2018 2:49 PM Note Text: Dalia Bella is a 42 year old female here today for visit in [facility] Referring Surgeon: Dr. Gale Date of Surgery: 01/21/2018 Planned Surgery/Procedure: EXAM UNDER ANESTHESIA RE Allergies have been reviewed and verified. They include the following: Review of patient's allergies indicates no known allergies. Social History Substance Use Topics - Smoking status: Current Every Day Smoker Packs/day: 1.00 Years: 4.00 Types: Cigarettes - Smokeless tobacco: Never Used - Alcohol use Yes Comment: occasionally Medications reviewed and updated: Yes Hiral Irizarry LPN CNOV Observed: 01/20/2018 Status: COMPLETED Source: [place] 1:30 PM [facility] REPOSITORY Office Visit (JASSON) DALIA BELLA ([id number]) 1975 F Date Time Provider Department 01/20/18 1:30 PM PRAKASH GALE During your visit today, we recorded the following information about you: Weight Height Last Period 56.2 kg 1.524 m 01/19/18 Prakash Gale MD [facility] 01/20/2018 2:03 PM Signed HISTORY AND PHYSICAL EXAMINATION SERVICE DATE: 01/20/2018 SERVICE TIME: 1:27 PM PRIMARY CARE PHYSICIAN: Slick Erwin MD REASON FOR VISIT Dalia Bella is a 42 year old female who is being seen for pre-op education, conversation and consent. Patient is having EUA of rectum, FISTULOTOMY ANAL SUBCUTANEOUS and placement of seton. Denies fevers, nausea or vomiting. Post nasal drip- non productive. Has thrush of oropharynx currently, taking diflucan. Currently- no drainage from perianal fistula The patient has the following: ACTIVE PROBLEM LIST Tension Headache Migraine, Unspecified, Without Mention of Intractable Migraine Without Mention of Status Migrainosus Sprain of Neck Insomnia Backache, Unspecified Cervicalgia Panic Attacks Family History of Coronary Artery Disease Hyperlipidemia Tobacco Use Snoring Generalized Anxiety Disorder Lumbosacral Neuritis Anal Fistula PAST MEDICAL HISTORY Diagnosis Date - Anal fistula - Backache, unspecified - Depression - Headache(784.0) - Menorrhagia - Obstructive sleep apnea no CPAP - Perianal cyst PAST SURGICAL HISTORY Procedure Laterality Date - ESSURE 2010 - PAST SURGICAL HISTORY OF 06/2017 Excision of left perianal cystic lesion, exam under FAMILY HISTORY Problem Relation Age of Onset - Heart Mother 40 Double by-pass - Hypertension Father - Heart Maternal Grandmother - Alzheimer's Disease Maternal Grandmother Greatgrandmother - Diabetes Maternal Grandmother - Heart Maternal Grandfather - Diabetes Maternal Grandfather - Alzheimer's Disease Paternal Grandmother Greatgrandmother - Hypertension Paternal Grandfather - Hypertension Brother - Heart Maternal Uncle - Breast Cancer Paternal Aunt Two Aunts SOCIAL HISTORY: Social History Substance Use Topics - Smoking status: Current Every Day Smoker Packs/day: 1.00 Years: 4.00 Types: Cigarettes - Smokeless tobacco: Never Used - Alcohol use Yes Comment: occasionally MEDICATIONS Prior to Admission medications as of 01/01/181858 Medication Sig Last Dose Taking fluconazole (DIFLUCAN) 200 mg tablet Take 1 tablet by mouth once daily for 7 days. cyclobenzaprine (FLEXERIL) 10 mg tablet TAKE 1 TABLET BY MOUTH ONCE DAILY AT BEDTIME gabapentin (NEURONTIN) 300 mg capsule Take 1 capsule by mouth three times daily for 90 days. sertraline (ZOLOFT) 100 mg tablet Take 1 tablet by mouth once daily. No medication comments found. CURRENT ALLERGIES ALLERGIES No Known Allergies PLAN CONSULTS: The following consults have been initiated at this time: Procedure: EUA, possible Seton possible fistulotomy The risks, benefits and anticipated outcomes of the procedure, the risks and benefits of the alternatives to the procedure and the roles and tasks of the personnel to be involved were discussed with the patient and the patient consents to the procedure and agrees to proceed. I verify that I personally obtained Dalia Bella's consent. The Following Tests/Procedures Have Been Initiated: None Instructions Given to Patient: Patient given verbal and written preop instructions and voices comprehension and compliance. Will go to [facility] this afternoon. Teaching done with patient today. Prakash Gale MD FACS Dept of COLORECTAL SURGERY January 20, 2018 1:27 PM Referring Provider: PRAKASH GALE [[id number]] Allergies As of Date: 01/20/2018 (No Known Allergies) Date Reviewed: 01/20/2018 Reviewed by: Luis Enrique Baker) BARBARA Rahman - Fully Assessed Primary Visit Diagnosis:Anal abscess [K61.0] Prescriptions as of 01/20/2018 Sig: FLUCONAZOLE 200 MG TABLET Take 1 tablet by mouth once d* CYCLOBENZAPRINE 10 MG TABLET TAKE 1 TABLET BY MOUTH ONCE D* GABAPENTIN 300 MG CAPSULE Take 1 capsule by mouth three* SERTRALINE 100 MG TABLET Take 1 tablet by mouth once d* Problem List As Of Date 01/20/2018 Noted Resolved TENSION HEADACHE [G44.209] INVALID FOR* MIGRAINE NOS W/O MENTN INTRACTABLE [G43.909] INVALID FOR* SPRAIN OF NECK [S13.9XXA] INVALID FOR* Insomnia [G47.00] INVALID FOR* Backache, unspecified [M54.9] INVALID FOR* Cervicalgia [M54.2] INVALID FOR* Panic attacks [F41.0] INVALID FOR* Family history of coronary artery disease [Z82.*INVALID FOR* Hyperlipidemia [E78.5] INVALID FOR* Tobacco use [Z72.0] INVALID FOR* Snoring [R06.83] INVALID FOR* Generalized anxiety disorder [F41.1] INVALID FOR* Lumbosacral neuritis [M54.17] INVALID FOR* Anal fistula [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 Encounter Status:Closed by PRAKASH GALE MD, FACS on 01/20/18 PROGRESS Observed: 01/20/2018 Status: COMPLETED Source: [place] 1:27 PM [facility] REPOSITORY O ID: [id number] Author: Prakash Gale Service: (none) Author Type: Physician Type: Progress Notes Filed: 01/20/2018 2:03 PM Note Text: HISTORY AND PHYSICAL EXAMINATION SERVICE DATE: 01/20/2018 SERVICE TIME: 1:27 PM PRIMARY CARE PHYSICIAN: Slick Erwin MD REASON FOR VISIT Dalia Bella is a 42 year old female who is being seen for pre-op education, conversation and consent. Patient is having EUA of rectum, FISTULOTOMY ANAL SUBCUTANEOUS and placement of seton. Denies fevers, nausea or vomiting. Post nasal drip- non productive. Has thrush of oropharynx currently, taking diflucan. Currently- no drainage from perianal fistula The patient has the following: ACTIVE PROBLEM LIST Tension Headache Migraine, Unspecified, Without Mention of Intractable Migraine Without Mention of Status Migrainosus Sprain of Neck Insomnia Backache, Unspecified Cervicalgia Panic Attacks Family History of Coronary Artery Disease Hyperlipidemia Tobacco Use Snoring Generalized Anxiety Disorder Lumbosacral Neuritis Anal Fistula PAST MEDICAL HISTORY Diagnosis Date - Anal fistula - Backache, unspecified - Depression - Headache(784.0) - Menorrhagia - Obstructive sleep apnea no CPAP - Perianal cyst PAST SURGICAL HISTORY Procedure Laterality Date - ESSURE 2010 - PAST SURGICAL HISTORY OF 06/2017 Excision of left perianal cystic lesion, exam under FAMILY HISTORY Problem Relation Age of Onset - Heart Mother 40 Double by-pass - Hypertension Father - Heart Maternal Grandmother - Alzheimer's Disease Maternal Grandmother Greatgrandmother - Diabetes Maternal Grandmother - Heart Maternal Grandfather - Diabetes Maternal Grandfather - Alzheimer's Disease Paternal Grandmother Greatgrandmother - Hypertension Paternal Grandfather - Hypertension Brother - Heart Maternal Uncle - Breast Cancer Paternal Aunt Two Aunts SOCIAL HISTORY: Social History Substance Use Topics - Smoking status: Current Every Day Smoker Packs/day: 1.00 Years: 4.00 Types: Cigarettes - Smokeless tobacco: Never Used - Alcohol use Yes Comment: occasionally MEDICATIONS Prior to Admission medications as of 01/01/18 4159 Medication Sig Last Dose Taking fluconazole (DIFLUCAN) 200 mg tablet Take 1 tablet by mouth once daily for 7 days. cyclobenzaprine (FLEXERIL) 10 mg tablet TAKE 1 TABLET BY MOUTH ONCE DAILY AT BEDTIME gabapentin (NEURONTIN) 300 mg capsule Take 1 capsule by mouth three times daily for 90 days. sertraline (ZOLOFT) 100 mg tablet Take 1 tablet by mouth once daily. No medication comments found. CURRENT ALLERGIES ALLERGIES No Known Allergies PLAN CONSULTS: The following consults have been initiated at this time: Procedure: EUA, possible Seton possible fistulotomy The risks, benefits and anticipated outcomes of the procedure, the risks and benefits of the alternatives to the procedure and the roles and tasks of the personnel to be involved were discussed with the patient and the patient consents to the procedure and agrees to proceed. I verify that I personally obtained Dalia Bella's consent. The Following Tests/Procedures Have Been Initiated: None Instructions Given to Patient: Patient given verbal and written preop instructions and voices comprehension and compliance. Will go to [facility] this afternoon. Teaching done with patient today. Prakash Gale MD FACS Dept of COLORECTAL SURGERY January 20, 2018 1:27 PM COMP METABOLIC PANEL Collected: 01/20/2018 Status: F Source: [place] 12:36 PM [facility] REPOSITORY TYPE CODE TESTS RESULT OUT OF REFERENCE UNITS RANGE LAB TP 6.3-8.0 g/dL Protein, Total 7.0 LAB ALB 3.9-4.9 g/dL Albumin 3.9 LAB CA 8.5-10.2 mg/dL Calcium, Total 9.0 LAB TBIL 0.2-1.3 mg/dL Bilirubin, Total 0.2 LAB ALKP 32-117 U/L Alkaline Phosphatase 84 LAB AST 13-35 U/L AST 27 LAB GLU 74-99 mg/dL Glucose High 118 Result Comment: The [place] Diabetes [employer] (ADA) provides guidance for cutoff values for fasting glucose and random glucose. The ADA defines fasting as no caloric intake for at least 8 hours. Fas ting plasma glucose results between 100 to 125 mg/dL indicate increased risk for diabetes (prediabetes). Fasting plasma glucose results greater than or equal to 126 mg/dL meet the criteria for diagnosis of diabetes. In the absence of unequivocal hyperglycemia, results should be confirmed by repeat testing. In a patient with classic symptoms of hyperglycemia or hyperglycemic crisis, random plasma glucose results greater than or equal to 200 mg/dL meet the criteria for diagnosis of diabetes. Reference: Standards of Medical Care in Diabetes 2016, [place] [employer]. Diabetes Care. 2016.39(Suppl 1). LAB BUN 7-21 mg/dL BUN 8 LAB CRET 0.58-0.96 mg/dL Creatinine 0.88 LAB NA 136-144 mmol/L Sodium 138 LAB K 3.7-5.1 mmol/L Potassium 4.2 LAB CL 97-105 mmol/L Chloride 101 LAB CO2 22-30 mmol/L CO2 25 LAB AGAP 9-18 mmol/L Anion Gap 12 LAB ALT 7-38 U/L ALT 12 LAB GFRAA eGFR- Amer. >60 LAB GFRNAA . eGFR-All Other Races >60 Result Comment: eGFR (Estimated GFR) Units of measure: mL/min/1.73 meters squared eGFR is derived from the reexpressed MDRD Study equation using the following parameters: serum creatinine, age, gender and race. The creatinine assay has been calibrated to be traceable to IDIL. An eGFR <60 mL/min/1.73m2 for >3 months is consistent with chronic kidney disease. Refer to KDOQI guidelines for clinical interpretation. In patients with unstable renal function, e.g. those with acute kidney injury, the eGFR may not accurately reflect actual GFR. Performed By: #### CMP, CBC #### [facility] [address], [place] [address] CBC Collected: 01/20/2018 Status: F Source: [place] 12:36 PM [facility] REPOSITORY TYPE CODE TESTS RESULT OUT OF REFERENCE UNITS RANGE LAB WBC 3.70-11.00 k/uL WBC High 13.28 LAB RBC 3.90-5.20 m/uL RBC 4.18 LAB HGB 11.5-15.5 g/dL Hemoglobin 13.3 LAB HCT 36.0-46.0 % Hematocrit 40.8 LAB MCV 80.0-100.0 fL MCV 97.6 LAB MCH 26.0-34.0 pG MCH 31.8 LAB MCHC 30.5-36.0 g/dL MCHC 32.6 LAB RDWCV 11.5-15.0 % RDW-CV 13.8 LAB PLTCT 150-400 k/uL Platelet Count 315 LAB MPV 9.0-12.7 fL MPV 9.9 LAB ABSNUC <0.01 k/uL Absolute nRBC <0.01 Performed By: #### CMP, CBC #### [facility] [address], [place] [address] URGENT CARE VISIT Observed: 01/16/2018 Status: F Source: [place] REPORT 11:24 AM [facility] REPOSITORY Now [address] [address] OFFICE VISIT Date of Service: 01/16/18 MR#: [id number] Acct: [id number] Name: DALIA BELLA Rep #: [id number] : 1975 Provider: Bal SANTOS Age/Sex: 42/F Location: [facility] Status: Signed Intake Vital Signs01/16/18 Height 5 ft 01/16/18 Weight: 124 lb 01/16/18 Body Mass Index (BMI) 24.2 Intake Visit Reasons: Sore throat Chief Complaint: Sore tongue Software Configuration Specialist Required: No Is patient in pain?: No Allergies No Known Allergies Allergy (Verified 01/16/18 11:08) Medications Gabapentin [Neurontin] 300 mg PO TIDCM 07/28/17 [History Confirmed 01/16/18] Sertraline HCl [Zoloft] 100 mg PO DAILY 07/28/17 [History Confirmed 01/16/18] Ranitidine HCl [Ranitidine HCl] 150 mg PO DAILY 11/28/17 [History Confirmed 01/16/18] nystatin 100,000 unit/mL oral suspension 500,000 unit BUCCAL Q6H #250 ml 01/16/18 [Rx Confirmed 01/16/18] PFSH Social History Smoking Status: Former smoker alcohol intake: never HPI HPI Chief Complaint: Sore tongue Details: DALIA BELLA, is a 42 F who presents to the office today for evaluation of tongue, stating she feels she may have thrush. Patient has previously seen her primary care physician who put her on Diflucan tablets stating she took the first dose yesterday but has noticed no improvement in her symptoms at all. She notes her tongue is burning with white plaques noted on the top of the tongue. She notes no complaints fever, chills, sweats, rash, chest pain/shortness of breath, or cough. She has recently had been placed on prednisone approximately a month ago and wonders if this may be the cause of her oral symptoms now. She notes no other associated symptoms and no other alleviating or aggravating factors. ROS Const Constitutional: No excessive sweating, abnormal sleep pattern, chills, fever(s), night sweats or body ache Eyes Eyes: No change in vision ENT ENT: No abnormal hearing, ear pain, ear discharge, ear pressure, hearing loss, post nasal drip, sinus pressure, tongue swelling (Though burning sensation), throat swelling, sore throat, mouth pain or hoarseness Resp Respiratory: No cough or chest congestion Cardio Cardiology: No excessive sweating, chest pain at rest, chest pain with exertion, shortness of breath, dyspnea on exertion, irregular heart rhythm, generalized swelling or leg pain with exertion Skin Skin: No rash Neuro Neurology: No abnormal hearing Psych Psychiatric: No abnormal sleep pattern Endo Endocrine: No excessive sweating Aller/Imm Allergy/Immunologic: No tongue swelling (Though burning sensation) or throat swelling Exam Const General: cooperative, healthy appearing, no acute distress, comfortable, well groomed Nutritional Appearance: average body habitus Orientation: alert, awake, oriented x3 [facility] Head: normal to inspection Ears: hearing grossly normal bilaterally, external ears normal, TM's normal bilaterally, EAC's normal Nose: external nose normal, nares normal, septum normal, no nasal discharge Face and sinus: normal facial exam, sinuses nontender, face symmetric Mouth: oral mucosae normal, lip normal, oropharynx normal, abnormal tongue (leukoplakia superior surface) Teeth and gingiva: dentition normal, gingiva normal Throat: tonsils normal, posterior oropharynx normal, no postnasal drainage Eyes General: appearance normal, both eyes and all related structures Neck Neck: normal visual inspection, full ROM, no lymphadenopathy, no meningeal signs, supple Neck mass: No Thyroid: thyroid normal Lymphatic: no lymphadenopathy noted Chest Chest palpation AND inspection: normal inspection of the chest Resp Effort AND Inspection: normal respiratory effort, able to speak in complete sentences, symmetric chest movement, no cough Auscultation: Bilateral: Clear to Auscultation Cardio Palpation: normal PMI Rate: regular rate Rhythm: regular rhythm Heart Sounds: S1 normal, S2 normal, no gallops, no murmurs, no rubs Pulses: radial pulses present Skin General: no rashes or lesions noted Assessment AND Plan 1. Sore throat J02.9 2. Thrush, oral B37.0 Plan Patient to inform her PCP that she was placed on nystatin swish and swallow to take as prescribed today. Clear fluids, rest, Tylenol, appropriate oral hygiene as instructed today. Follow-up with PCP in 5-7 days should symptoms not improve, sooner should symptoms worsen or any other concerns develop. Patient states acknowledging understanding all of the above. This note was generated with TutorialTab dictation software. It may contain incorrect words, spelling, and punctuation that were not noted in checking the note before signing. Plan Detail Other Medications New: nystatin administer 1/2 of dose in each side of the cud716,000 units (5 mL) buccal Q6H th Coding Level of Care Code Off vis,est,level 3 Diagnoses Sore throat J02.9 Thrush, oral B37.0 01/16/18 1124 <Electronically signed by Bal SANTOS> Date Bal SANTOS [facility] Signature: Date (if applicable) CC: SURGICAL PATHOLOGY Observed: 01/09/2018 Status: F Source: [place] 4:31 PM [facility] REPOSITORY Specimen #: [id number]* Submitting Physician: PRAKASH GALE ([id number]) FINAL DIAGNOSIS Skin and soft tissue, perianal, excision - Skin and underlying fibroadipose tissue with acute, chronic and granulomatous inflammation, consistent with abscess. JERRY/JOSÉ MIGUEL/nikita 01/10/18 Jude Obrien M.D. (Electronic Signature) SPECIMEN SUBMITTED A: 3 SLIDES ([id number]) CLINICAL DATA None provided. Date of Report: 01/10/2018 Date of Procedure: 01/09/2018 Date of Receipt: 01/09/2018 Submitted by: PRAKASH GALE ([id number]) Location: [facility] Diagnostic interpretation performed at [facility], [address] [place], [place] [address] [address]. PROGRESS Observed: 01/01/2018 Status: COMPLETED Source: [place] 6:[address] REPOSITORY HNO ID: [id number] Author: Talia Edilialuis Alicea Service: (none) Author Type: Physician Type: Progress Notes Filed: 01/01/2018 6:59 PM Note Text: Dalia Bella 1975 REFERRING PHYSICIAN: Danielle Mercado (Online Marketing Director), [employer] LIBRARIAN CHIEF COMPLAINT: Recurrent anal fistula HPI: The patient is a 42 year old female who presents painful perianal lesion. States that she had anal fistula repair by Dr. Reynolds - 07/12/17. She felt that soon after surgery, something ripped open. States that she has noted intermittant drainage from a small area, since. Denies fevers. Denies incontinence. I could not find any notes regarding procedure by Dr. Reynolds. PAST MEDICAL HISTORY - Backache, unspecified - Depression - Headache(784.0) - Menorrhagia - Obstructive sleep apnea PAST SURGICAL HISTORY 2011: JULIAN Current Outpatient Prescriptions: sertraline (ZOLOFT) 50 mg tablet Take 1.5 tablets by mouth once daily. cyclobenzaprine (FLEXERIL) 10 mg tablet Take 1 tablet by mouth daily at bedtime. gabapentin (NEURONTIN) 300 mg capsule Take 1 capsule by mouth three times daily. ALLERGIES: Review of patient's allergies indicates no known allergies. 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[employer]* Social History Main Topics Smoking status: Current Every Day Smoker Packs/day: 1.00 Years: 4.00 Types: Cigarettes Smokeless status: Never Used Alcohol use: Yes Comment: occasionally Drug use: No Sexual activity: Yes Partners with: Male control/protection: Surgical Comment: essure FAMILY HISTORY Heart Mother 40 Comment: Double by-pass Hypertension Father Heart Maternal Grandmother Alzheimer's Disease Maternal Grandmother Comment: Greatgrandmother Diabetes Maternal Grandmother Heart Maternal Grandfather Diabetes Maternal Grandfather Alzheimer's Disease Paternal Grandmother Comment: Greatgrandmother Hypertension Paternal Grandfather Hypertension Brother Heart Maternal Uncle Breast Cancer Paternal Aunt Comment: Two Aunts REVIEW OF SYSTEMS: General - denies fevers, had significant weight loss about 2-3 y ago - 65# Cardiovascular - denies chest pain Pulmonary - denies shortness of breath Gastrointestinal - notes loose stools and fecal urgency, colonoscopy in 2015, denies blood in stools Neurological - denies seizures Genitourinary - denies burning with urination Hematological - denies spontaneous/prolonged bleeding Skin - denies nonhealing skin wounds Musculoskeletal - has chronic neck pain Endocrine - denies diabetes Psychological ? denies hallucinations PHYSICAL EXAMINATION: General: The patient is 42 year old female, well nourished, well hydrated in no acute distress. The patient is oriented to time, place, and person. VITALS: Blood pressure 104/62, pulse 80, weight 55.8 kg (123 lb) Body mass index is 24.02 kg/(m2). Head ? Normocephalic. EOM intact with sclera clear and no icterus noted. Wearing glasses. Mouth with mucus membranes moist. Neck - supple with no jugular venous distention noted. Trachea is midline. No masses noted. Lungs ? clear to auscultation. Normal breath sounds. No rales/rhonchi/wheezing noted. No labored breathing noted, such as retractions. Heart ? normal S1 and S2 auscultated. No rubs/clicks/murmurs noted. Regular rate. Abdomen ? soft and benign. Normal bowel sounds. Extremities ? no calf tenderness noted. No pitting edema noted. Rectal ? normal perianal skin, palpable mass 3-4 cm from anal verge on lateral left side with central eruption Skin ? normal skin integrity. Neurological ? no focal deficits noted. Psych ? calm and appropriate IMPRESSION: possible recurrent fistula in ano PLAN: I have discussed the above with the patient and her who is present with her. Has already had recurrence of anal fistula after surgery by a colorectal surgeon. Therefore I have recommended referral to colorectal surgery at [facility]. She agrees to this. I have answered all questions to the patient?s satisfaction and the patient has no further questions. Greater than 50% of this patient encounter was dedicated to face to face discussion with the patient. PROGRESS Observed: 01/01/2018 Status: COMPLETED Source: [place] 1:37 PM [facility] REPOSITORY [facility] ID: [id number] Author: Prakash Gale Service: (none) Author Type: Physician Type: Progress Notes Filed: 01/01/2018 2:37 PM Note Text: Patient previously seen for: Perianal cyst by Dr. Reynolds, s/p-Excision of left perianal cystic lesion, we do not have a pathology report. exam under anesthesia. Return to clinic for reason of: exacerbation Complaining of on and off pain and drainage. Told she now has a fistula , but there is no information that details and examination or findings of a fistula. After removal of the lesion. The wound never healed completely and intermittently would cause pain and discharge. The patient had a perianal cystic structure that was removed in late 2017 complicated by suture-dislodgement and the need for packing her perianal site. No pathology on the cyst. Since then has recurrent perianal abscesses that are painful that then drain spontaneously with resolution of symptoms. This process had continued to occur over the past 6 months. She now would like surgical consultation. States that the discharge is purulent with some blood tinge. Denies any n/v or constipation. +Occasional chills at night. Meds: Current Outpatient Prescriptions: gabapentin (NEURONTIN) 300 mg capsule Take 1 capsule by mouth three times daily for 90 days. sertraline (ZOLOFT) 100 mg tablet Take 1 tablet by mouth once daily. cyclobenzaprine (FLEXERIL) 10 mg tablet Take 1 tablet by mouth daily at bedtime. No current facility-administered medications for this visit. Vitals: Ht 152.4 cm (5') Wt 56.7 kg (125 lb) LMP 12/27/2017 BMI 24.41 kg/m2 Neuro: AAOx3 Chest: CTA b/l Heart: RRR Abdominal examination: soft Digital examination: On the left anterior quadrant of the perianal area. There is a small skin opening that can be probed for a centimeter or 2. There is no evidence of a fistula.on probing and injection of hydrogen peroxide into the cavity does not indicate a fistula at this time. Anoscopy is too tender. This is uncomfortable for her and remains stable approximately 6 months after original operation. She would like to be rid of it. My recommendation is to have an examination under anesthetic and attempt to define the anatomy and pathology and excise it. Consent in the chart for EUA, possible fistulotomy, possible Gregg Gale M.D. She is in agreement. MAO Observed: 01/01/2018 Status: COMPLETED Source: [place] 12:40 PM [facility] REPOSITORY Office Visit (CORN) DALIA BELLA ([id number]) 1975 F Date Time Provider Department 01/01/18 12:40 PM PRAKASH GALE During your visit today, we recorded the following information about you: Weight Height Last Period 56.7 kg 1.524 m 12/27/17 Prakash Gale MD [facility] 01/01/2018 2:29 PM Addendum Patient previously seen for: Perianal cyst by Dr. Reynolds, s/p-Excision of left perianal cystic lesion, we do not have a pathology report. exam under anesthesia. Return to clinic for reason of: exacerbation Complaining of on and off pain and drainage. Told she now has a fistula , but there is no information that details and examination or findings of a fistula. After removal of the lesion. The wound never healed completely and intermittently would cause pain and discharge. The patient had a perianal cystic structure that was removed in late 2016 complicated by suture-dislodgement and the need for packing her perianal site. No pathology on the cyst. Since then has recurrent perianal abscesses that are painful that then drain spontaneously with resolution of symptoms. This process had continued to occur over the past 6 months. She now would like surgical consultation. States that the discharge is purulent with some blood tinge. Denies any n/v or constipation. +Occasional chills at night. Meds: Current Outpatient Prescriptions: gabapentin (NEURONTIN) 300 mg capsule Take 1 capsule by mouth three times daily for 90 days. sertraline (ZOLOFT) 100 mg tablet Take 1 tablet by mouth once daily. cyclobenzaprine (FLEXERIL) 10 mg tablet Take 1 tablet by mouth daily at bedtime. No current facility-administered medications for this visit. Vitals: Ht 152.4 cm (5') Wt 56.7 kg (125 lb) LMP 12/27/2017 BMI 24.41 kg/m2 Neuro: AAOx3 Chest: CTA b/l Heart: RRR Abdominal examination: soft Digital examination: On the left anterior quadrant of the perianal area. There is a small skin opening that can be probed for a centimeter or 2. There is no evidence of a fistula.on probing and injection of hydrogen peroxide into the cavity does not indicate a fistula at this time. Anoscopy is too tender. This is uncomfortable for her and remains stable approximately 6 months after original operation. She would like to be rid of it. My recommendation is to have an examination under anesthetic and attempt to define the anatomy and pathology and excise it. Consent in the chart for EUA, possible fistulotomy, possible Seton Prakash Gale M.D. She is in agreement. Referring Provider: TALIA ALICEA [[id number]] Allergies As of Date: 01/01/2018 (No Known Allergies) Date Reviewed: 01/01/2018 Reviewed by: Britt (Barbara) BARBARA Prater - Fully Assessed Reason for Visit: Established Patient [175] Primary Visit Diagnosis:Anal abscess [K61.0] Prescriptions as of 01/01/2018 Sig: GABAPENTIN 300 MG CAPSULE Take 1 capsule by mouth three* SERTRALINE 100 MG TABLET Take 1 tablet by mouth once d* CYCLOBENZAPRINE 10 MG TABLET Take 1 tablet by mouth daily * Problem List As Of Date 01/01/2018 Noted Resolved TENSION HEADACHE [G44.209] INVALID FOR* MIGRAINE NOS W/O MENTN INTRACTABLE [G43.909] INVALID FOR* SPRAIN OF NECK [S13.9XXA] INVALID FOR* Insomnia [G47.00] INVALID FOR* Backache, unspecified [M54.9] INVALID FOR* Cervicalgia [M54.2] INVALID FOR* Panic attacks [F41.0] INVALID FOR* Family history of coronary artery disease [Z82.*INVALID FOR* Hyperlipidemia [E78.5] INVALID FOR* Tobacco use [Z72.0] INVALID FOR* Snoring [R06.83] INVALID FOR* Generalized anxiety disorder [F41.1] INVALID FOR* Lumbosacral neuritis [M54.17] INVALID FOR* Anal fistula [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 Encounter Status:Closed by PRAKASH GALE MD, FACS on 01/01/18 HOSP Observed: 01/01/2018 Status: COMPLETED Source: [place] 12:00 AM [facility] REPOSITORY Patient Update ([facility]) VASILIYDALIA Baum ([id number]) 1975 F Date Time Provider Department 01/01/18 PRAKASH GALE During your visit today, we recorded the following information about you: Allergies As of Date: 01/01/2018 (No Known Allergies) Date Reviewed: 01/01/2018 Reviewed by: Britt (Barbara) BARBARA Prater - Fully Assessed Primary Visit Diagnosis:Anal fistula [K60.3] Order(s):SURGICAL REQUEST - ELECTIVE [[id number]] Order #: [id number]: 1 YA WHAT TO EXPECT DURING YOUR HOSPITAL STAY [[id number]] Order #: [id number]: 1 CBC [SQCBC] Order #: [id number] FUTURE COMP METABOLIC PANEL [SQCMP] Order #: [id number] FUTURE REFER FOR ADMIT INTERVIEW [[id number]] Order #: [id number] HANDP FOR SURGERY [[id number]] Order #: [id number] CONSULT TO PATIENT EDUCATION [[id number]] Order #: [id number]: 1 CONSULT TO ANESTHESIOLOGY [9002] Order #: [id number]: 1 CONSULT TO INT MED-IMPACT [[id number]] Order #: [id number]: 1 Prescriptions as of 01/01/2018 Sig: GABAPENTIN 300 MG CAPSULE Take 1 capsule by mouth three* SERTRALINE 100 MG TABLET Take 1 tablet by mouth once d* CYCLOBENZAPRINE 10 MG TABLET Take 1 tablet by mouth daily * Problem List As Of Date 01/01/2018 Noted Resolved TENSION HEADACHE [G44.209] INVALID FOR* MIGRAINE NOS W/O MENTN INTRACTABLE [G43.909] INVALID FOR* SPRAIN OF NECK [S13.9XXA] INVALID FOR* Insomnia [G47.00] INVALID FOR* Backache, unspecified [M54.9] INVALID FOR* Cervicalgia [M54.2] INVALID FOR* Panic attacks [F41.0] INVALID FOR* Family history of coronary artery disease [Z82.*INVALID FOR* Hyperlipidemia [E78.5] INVALID FOR* Tobacco use [Z72.0] INVALID FOR* Snoring [R06.83] INVALID FOR* Generalized anxiety disorder [F41.1] INVALID FOR* Lumbosacral neuritis [M54.17] INVALID FOR* Anal fistula [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 Follow-up and Disposition History Recorded Encounter Status:Closed by PRAKASH GALE MD, FACS on 01/01/18 HOSP Observed: 01/01/2018 Status: COMPLETED Source: [place] 12:00 AM [facility] REPOSITORY Patient:Dalia Bella MRN: <[id number]> Height:5' 0(1.524 m) Weight:124 lb (56.246 kg) Outpatient Medications as of 01/21/18: GINSENG ORAL fluconazole (DIFLUCAN) 200 mg tablet cyclobenzaprine (FLEXERIL) 10 mg tablet gabapentin (NEURONTIN) 300 mg capsule sertraline (ZOLOFT) 100 mg tablet Admission/Clinic Administered Medications as of 01/21/18: lidocaine 10 mg/mL (1 %) 1-2 mg injection (XYLOCAINE) lactated ringers infusion Problem List: Tension headache [G44.209] Migraine, unspecified, without mention of intractable migraine without mention of status migrainosus [G43.909] Sprain of neck [S13.9XXA] Insomnia [G47.00] Backache, unspecified [M54.9] Cervicalgia [M54.2] Panic attacks [F41.0] Family history of coronary artery disease [Z82.49] Hyperlipidemia [E78.5] Tobacco use [Z72.0] Snoring [R06.83] Generalized anxiety disorder [F41.1] Lumbosacral neuritis [M54.17] Anal fistula [K60.3] Allergies: No Known Allergies Date Verified:01/21/18 Lab Values Lab Value Units Date High Low POTA* 4.2 mmol/L 01/20/2018 5.1 3.7 SAMUEL* 40.8 % 01/20/2018 46.0 36.0 Progress Notes ([facility]): Hiral Irizarry LPN 01/20/2018 2:49 PM Signed Dalia Bella is a 42 year old female here today for visit in [facility] Referring Surgeon: Dr. Gale Date of Surgery: 01/21/2018 Planned Surgery/Procedure: EXAM UNDER ANESTHESIA RE Allergies have been reviewed and verified. They include the following: Review of patient's allergies indicates no known allergies. Social History Substance Use Topics - Smoking status: Current Every Day Smoker Packs/day: 1.00 Years: 4.00 Types: Cigarettes - Smokeless tobacco: Never Used - Alcohol use Yes Comment: occasionally Medications reviewed and updated: Yes Hiral Dorsey MD 01/20/2018 2:49 PM Signed HISTORY AND PHYSICAL EXAMINATION (IMPACT) SERVICE DATE: 01/20/2018 SERVICE TIME: 2:40 PM PRIMARY CARE PHYSICIAN: Slick Erwin MD CHIEF COMPLAINT/HISTORY OF PRESENT ILLNESS: Ms. Bella is a 42 year old female referred to me for preoperative evaluation. My final recommendations will be communicated back to the requesting physician/surgeon by the way of the shared medical record. Referring Surgeon: Dr. Gale Date of Surgery: Tomorrow Planned Surgery/Procedure: Perianal abscess drainage, EUA, fistulotomy, seton placement Indication for Planned Surgery / Procedure: 42 y/o woman with a perirectal cyts that was removed in Jun. Since then has been having drainage from the area on and off with abscesses. Refer to Assessment section for details of any comorbidities. Patient is Able to Perform the Following Physical Activity: Climb a flight of stairs or walk up a hill (5.50 METs) Patient's functional class is II based on self-reported physical activity. Significant Anesthesia Considerations: None. PAST MEDICAL/SURGICAL/FAMILY/SOCIAL HISTORY PAST MEDICAL HISTORY Diagnosis Date - Anal fistula - Backache, unspecified - Depression - Headache(784.0) - Menorrhagia - Perianal cyst PAST SURGICAL HISTORY Procedure Laterality Date - ESSURE 2010 - PAST SURGICAL HISTORY OF 06/2017 Excision of left perianal cystic lesion, exam under - PAST SURGICAL HISTORY OF Fallopian tube coils FAMILY HISTORY Problem Relation Age of Onset - Heart Mother 40 Double by-pass - Hypertension Father - Heart Maternal Grandmother - Alzheimer's Disease Maternal Grandmother Greatgrandmother - Diabetes Maternal Grandmother - Heart Maternal Grandfather - Diabetes Maternal Grandfather - Alzheimer's Disease Paternal Grandmother Greatgrandmother - Hypertension Paternal Grandfather - Hypertension Brother - Heart Maternal Uncle - Breast Cancer Paternal Aunt Two Aunts SOCIAL HISTORYSocial History Marital status: Single Spouse name: Years of education: 12 Number of children: 3 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 Disp: Rfl: fluconazole (DIFLUCAN) 200 mg tablet Take 1 tablet by mouth once daily for 7 days. Disp: 7 tablet Rfl: 0 cyclobenzaprine (FLEXERIL) 10 mg tablet TAKE 1 TABLET BY MOUTH ONCE DAILY AT BEDTIME Disp: 30 tablet Rfl: 2 gabapentin (NEURONTIN) 300 mg capsule Take 1 capsule by mouth three times daily for 90 days. Disp: 90 capsule Rfl: 2 sertraline (ZOLOFT) 100 mg tablet Take 1 tablet by mouth once daily. Disp: 30 tablet Rfl: 1 No current facility-administered medications for this visit. ALLERGIES No Known Allergies REVIEW OF SYSTEMS General: No weight loss, malaise or fevers. 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 No neurological symptoms or problems. Respiratory: URI < 2 weeks recovered by itself Cardiovascular: No history of HTN requiring medication, no history of angina, CHF, [place], cardiac surgery or stents. Denies rest pain, gangrene or revascularization/amputation for PVD. No history of cardiovascular symptoms or problems. GI: No history of GI symptoms or problems. No history of esophageal varices, recent ascites, or ETOH greater than 2 drinks per day. : No history of UTI in past 6 weeks. No history of renal failure. Not currently on or requiring dialysis. No history of symptoms or problems. 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 Has not taken steroids within the past 30 days. No history of endocrinological symptoms or problems. Hematology: No history of bleeding or clotting disorder. No history of hematological symptoms or problems. Oncology: No history of CA metastasis, chemo within 30 days, or radiotherapy within 90 days. No history of oncological symptoms or problems. Psych: No history of psychiatric symptoms or problems. Skin: Negative for lesions, rash, and itching. PHYSICAL EXAM VITALS: BP 107/64 Pulse 86 Temp (Src) 98.3 (Oral) Ht 5' 0 (1.52m) Wt 124 lb (56.2kg) SpO2 99% LMP 01/19/2018 BMI 24.22 kg/(m2). General: Alert and oriented Skin: Normal color, no rash, no lesions. HEENT: EOM, pupils equal, round and reactive. Cardiovascular: Normal S1 AND S2, no rubs, murmurs or gallops. No JVD. Pulse regular. Lungs: Normal breath sounds, no wheezes or crackles. Abdomen: Soft, non-tender, no rigidity. Extremities: No deformity, no edema or tenderness, no joint swelling or clubbing. Neurological: Normal cognition and motor skills. Pulses: Carotid and radial pulses normal +2. ASSESSMENT Ms. Bella is a 42 year old female referred to me for preoperative evaluation. Patient has the following medical comorbidities which might affect the perioperative course: - Recurrent oral thrush - Perirectal abscess/fistula - Depression Patient's RCRI (Revised Cardiac Risk Index: CAD/CHF/Stroke or TIA/SCr>2/DM on Insulin/High Risk Surgery) score is 0 and is at low risk for major adverse cardiac events in the perioperative period. Diagnostic tests reviewed for today's visit: Most recent labs PLAN/RECOMMENDATIONS CARDIAC: Patient is at optimal cardiac condition for scheduled surgery / procedure. PULMONARY: Patient is at optimal Pulmonary status for scheduled surgery / procedure. Patient is optimally prepared for surgery. Patient Instructions: As per patient instructions section. I have discussed the above recommendations with the patient in detail, in ambrocio and lay terms, and provided a written summary of instructions as needed. We have discussed that no surgery is without risk, but that the goal of preoperative assessment is to optimize that risk, and that was clearly understood by the patient. I have given ample opportunity for the patient to ask questions, and answered all questions to their stated satisfaction. SIGNATURE: Yamilka Dorsey MD PATIENT NAME: Dalia Bella DATE: January 20, 2018 TIME: 2:40 PM Yamilka Dorsey MD 01/20/2018 2:49 PM Signed [facility] Patient Instructions for Surgery FOOD INSTRUCTIONS: NO solid food or non-clear liquids for 8 hours prior to the arrival time for your surgery. Unless you are instructed otherwise, you are allowed to drink up to 12 ounces of clear liquids (e.g. water, black tea/coffee, fruit juice without pulp, Vanessa Cherie, etc.) up until 2 hours prior to the arrival time for surgery. MEDICATION INSTRUCTIONS: Prior to Surgery: Do not take the following medications for 7 days prior to surgery: - any NSAID's (e.g. Motrin, Aleve, Arthrotec, Naproxen,etc) - any herbal preparations - Aspirin or aspirin containing products - Plavix Do not take any Vitamin E / multivitamins for 10-14 days before surgery You are allowed to take Tylenol if needed until the day of surgery. MEDICATION INSTRUCTIONS: Day/Morning of Surgery: The following medications should be taken with sips of water: None Tylenol, if needed for pain, can be taken on morning of surgery. If you have any questions or concerns regarding today's visit please do not hesitate to contact the [facility] at [phone] or [phone], ext [phone]. Signature: Yamilka Dorsey MD Date: January 20, 2018 Progress Notes ([facility]): Prakash Gale MD [facility] 01/20/2018 2:03 PM Signed HISTORY AND PHYSICAL EXAMINATION SERVICE DATE: 01/20/2018 SERVICE TIME: 1:27 PM PRIMARY CARE PHYSICIAN: Slick Erwin MD REASON FOR VISIT Dalia Bella is a 42 year old female who is being seen for pre-op education, conversation and consent. Patient is having EUA of rectum, FISTULOTOMY ANAL SUBCUTANEOUS and placement of seton. Denies fevers, nausea or vomiting. Post nasal drip- non productive. Has thrush of oropharynx currently, taking diflucan. Currently- no drainage from perianal fistula The patient has the following: ACTIVE PROBLEM LIST Tension Headache Migraine, Unspecified, Without Mention of Intractable Migraine Without Mention of Status Migrainosus Sprain of Neck Insomnia Backache, Unspecified Cervicalgia Panic Attacks Family History of Coronary Artery Disease Hyperlipidemia Tobacco Use Snoring Generalized Anxiety Disorder Lumbosacral Neuritis Anal Fistula PAST MEDICAL HISTORY Diagnosis Date - Anal fistula - Backache, unspecified - Depression - Headache(784.0) - Menorrhagia - Obstructive sleep apnea no CPAP - Perianal cyst PAST SURGICAL HISTORY Procedure Laterality Date - ESSURE 2010 - PAST SURGICAL HISTORY OF 06/2017 Excision of left perianal cystic lesion, exam under FAMILY HISTORY Problem Relation Age of Onset - Heart Mother 40 Double by-pass - Hypertension Father - Heart Maternal Grandmother - Alzheimer's Disease Maternal Grandmother Greatgrandmother - Diabetes Maternal Grandmother - Heart Maternal Grandfather - Diabetes Maternal Grandfather - Alzheimer's Disease Paternal Grandmother Greatgrandmother - Hypertension Paternal Grandfather - Hypertension Brother - Heart Maternal Uncle - Breast Cancer Paternal Aunt Two Aunts SOCIAL HISTORY: Social History Substance Use Topics - Smoking status: Current Every Day Smoker Packs/day: 1.00 Years: 4.00 Types: Cigarettes - Smokeless tobacco: Never Used - Alcohol use Yes Comment: occasionally MEDICATIONS Prior to Admission medications as of 01/01/18 559 Medication Sig Last Dose Taking fluconazole (DIFLUCAN) 200 mg tablet Take 1 tablet by mouth once daily for 7 days. cyclobenzaprine (FLEXERIL) 10 mg tablet TAKE 1 TABLET BY MOUTH ONCE DAILY AT BEDTIME gabapentin (NEURONTIN) 300 mg capsule Take 1 capsule by mouth three times daily for 90 days. sertraline (ZOLOFT) 100 mg tablet Take 1 tablet by mouth once daily. No medication comments found. CURRENT ALLERGIES ALLERGIES No Known Allergies PLAN CONSULTS: The following consults have been initiated at this time: Procedure: EUA, possible Seton possible fistulotomy The risks, benefits and anticipated outcomes of the procedure, the risks and benefits of the alternatives to the procedure and the roles and tasks of the personnel to be involved were discussed with the patient and the patient consents to the procedure and agrees to proceed. I verify that I personally obtained Dalia Bella's consent. The Following Tests/Procedures Have Been Initiated: None Instructions Given to Patient: Patient given verbal and written preop instructions and voices comprehension and compliance. Will go to [facility] this afternoon. Teaching done with patient today. Prakash Gale MD FACS Dept of COLORECTAL SURGERY January 20, 2018 1:27 PM Previous Version CNOV Observed: 12/30/2017 Status: COMPLETED Source: [place] 8:50 AM [facility] REPOSITORY Office Visit (GENSWS) DALIA BELLA ([id number]) 1975 F Date Time Provider Department 12/30/17 8:50 AM TALIA ALICEA During your visit today, we recorded the following information about you: Talia Alicea MD 01/01/2018 6:59 PM Signed Dalia Bella 1975 REFERRING PHYSICIAN: Danielle Mercado (Online Marketing Director), [employer]S LIBRARIAN CHIEF COMPLAINT: Recurrent anal fistula HPI: The patient is a 42 year old female who presents painful perianal lesion. States that she had ANDquot;anal fistula repairANDquot; by Dr. Reynolds - 07/12/17. She felt that soon after surgery, something ANDquot;ripped openANDquot;. States that she has noted intermittant drainage from a small area, since. Denies fevers. Denies incontinence. I could not find any notes regarding procedure by Dr. Reynolds. PAST MEDICAL HISTORY - Backache, unspecified - Depression - Headache(784.0) - Menorrhagia - Obstructive sleep apnea PAST SURGICAL HISTORY 2011: JULIAN Current Outpatient Prescriptions: sertraline (ZOLOFT) 50 mg tablet Take 1.5 tablets by mouth once daily. cyclobenzaprine (FLEXERIL) 10 mg tablet Take 1 tablet by mouth daily at bedtime. gabapentin (NEURONTIN) 300 mg capsule Take 1 capsule by mouth three times daily. ALLERGIES: Review of patient's allergies indicates no known allergies. 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[employer]* Social History Main Topics Smoking status: Current Every Day Smoker Packs/day: 1.00 Years: 4.00 Types: Cigarettes Smokeless status: Never Used Alcohol use: Yes Comment: occasionally Drug use: No Sexual activity: Yes Partners with: Male control/protection: Surgical Comment: julian FAMILY HISTORY Heart Mother 40 Comment: Double by-pass Hypertension Father Heart Maternal Grandmother Alzheimer's Disease Maternal Grandmother Comment: Greatgrandmother Diabetes Maternal Grandmother Heart Maternal Grandfather Diabetes Maternal Grandfather Alzheimer's Disease Paternal Grandmother Comment: Greatgrandmother Hypertension Paternal Grandfather Hypertension Brother Heart Maternal Uncle Breast Cancer Paternal Aunt Comment: Two Aunts REVIEW OF SYSTEMS: General - denies fevers, had significant weight loss about 2-3 y ago - 65# Cardiovascular - denies chest pain Pulmonary - denies shortness of breath Gastrointestinal - notes loose stools and fecal urgency, colonoscopy in 2015, denies blood in stools Neurological - denies seizures Genitourinary - denies burning with urination Hematological - denies spontaneous/prolonged bleeding Skin - denies nonhealing skin wounds Musculoskeletal - has chronic neck pain Endocrine - denies diabetes Psychological ? denies hallucinations PHYSICAL EXAMINATION: General: The patient is 42 year old female, well nourished, well hydrated in no acute distress. The patient is oriented to time, place, and person. VITALS: Blood pressure 104/62, pulse 80, weight 55.8 kg (123 lb) Body mass index is 24.02 kg/(m2). Head ? Normocephalic. EOM intact with sclera clear and no icterus noted. Wearing glasses. Mouth with mucus membranes moist. Neck - supple with no jugular venous distention noted. Trachea is midline. No masses noted. Lungs ? clear to auscultation. Normal breath sounds. No rales/rhonchi/wheezing noted. No labored breathing noted, such as retractions. Heart ? normal S1 and S2 auscultated. No rubs/clicks/murmurs noted. Regular rate. Abdomen ? soft and benign. Normal bowel sounds. Extremities ? no calf tenderness noted. No pitting edema noted. Rectal ? normal perianal skin, palpable mass 3-4 cm from anal verge on lateral left side with central eruption Skin ? normal skin integrity. Neurological ? no focal deficits noted. Psych ? calm and appropriate IMPRESSION: possible recurrent fistula in ano PLAN: I have discussed the above with the patient and her who is present with her. Has already had recurrence of anal fistula after surgery by a colorectal surgeon. Therefore I have recommended referral to colorectal surgery at [facility]. She agrees to this. I have answered all questions to the patient?s satisfaction and the patient has no further questions. Greater than 50% of this patient encounter was dedicated to face to face discussion with the patient. Referring Provider: SELF [[id number]] Allergies As of Date: 12/30/2017 (No Known Allergies) Date Reviewed: 12/30/2017 Reviewed by: Lara Trevizo LPN - Fully Assessed Reason for Visit: Follow Up [171] Primary Visit Diagnosis:Anorectal fistula [K60.5] Other Visit Diagnosis:Localized superficial swelling, mass, or lump [R22.9] Prescriptions as of 12/30/2017 Sig: GABAPENTIN 300 MG CAPSULE Take 1 capsule by mouth three* SERTRALINE 100 MG TABLET Take 1 tablet by mouth once d* CYCLOBENZAPRINE 10 MG TABLET Take 1 tablet by mouth daily * Problem List As Of Date 12/30/2017 Noted Resolved TENSION HEADACHE [G44.209] INVALID FOR* MIGRAINE NOS W/O MENTN INTRACTABLE [G43.909] INVALID FOR* SPRAIN OF NECK [S13.9XXA] INVALID FOR* Insomnia [G47.00] INVALID FOR* Backache, unspecified [M54.9] INVALID FOR* Cervicalgia [M54.2] INVALID FOR* Panic attacks [F41.0] INVALID FOR* Family history of coronary artery disease [Z82.*INVALID FOR* Hyperlipidemia [E78.5] INVALID FOR* Tobacco use [Z72.0] INVALID FOR* Snoring [R06.83] INVALID FOR* Generalized anxiety disorder [F41.1] INVALID FOR* Lumbosacral neuritis [M54.17] INVALID FOR* Encounter Status:Closed by MD TALIA ALICEA on 01/01/18 COMP METABOLIC PANEL Collected: 12/04/2017 Status: F Source: [place] 11:22 AM [facility] REPOSITORY TYPE CODE TESTS RESULT OUT OF REFERENCE UNITS RANGE LAB TP 6.3-8.0 g/dL Low Protein, Total 6.2 LAB ALB 3.9-4.9 g/dL Low Albumin 3.8 LAB CA 8.5-10.2 mg/dL Calcium, Total 8.9 LAB TBIL 0.2-1.3 mg/dL Bilirubin, Total 0.2 LAB ALKP 32-117 U/L Alkaline Phosphatase 66 LAB AST 13-35 U/L AST 29 LAB GLU 74-99 mg/dL Glucose 93 Result Comment: The [place] [employer] (ADA) provides guidance for cutoff values for fasting glucose and random glucose. The ADA defines fasting as no caloric intake for at least 8 hours. Fas ting plasma glucose results between 100 to 125 mg/dL indicate increased risk for diabetes (prediabetes). Fasting plasma glucose results greater than or equal to 126 mg/dL meet the criteria for diagnosis of diabetes. In the absence of unequivocal hyperglycemia, results should be confirmed by repeat testing. In a patient with classic symptoms of hyperglycemia or hyperglycemic crisis, random plasma glucose results greater than or equal to 200 mg/dL meet the criteria for diagnosis of diabetes. Reference: Standards of Medical Care in Diabetes 2016, [place] [employer]. Diabetes Care. 2016.39(Suppl 1). LAB BUN 7-21 mg/dL BUN 9 LAB CRET 0.58-0.96 mg/dL Creatinine 0.91 LAB NA 136-144 mmol/L Sodium 142 LAB K 3.7-5.1 mmol/L Potassium Low 3.5 LAB CL 97-105 mmol/L Chloride 101 LAB CO2 22-30 mmol/L CO2 30 LAB AGAP 9-18 mmol/L Anion Gap 11 LAB ALT 7-38 U/L ALT 33 LAB GFRAA eGFR- Amer. >60 LAB GFRNAA . eGFR-All Other Races >60 Result Comment: eGFR (Estimated GFR) Units of measure: mL/min/1.73 meters squared eGFR is derived from the reexpressed MDRD Study equation using the following parameters: serum creatinine, age, gender and race. The creatinine assay has been calibrated to be traceable to IDMS. An eGFR <60 mL/min/1.73m2 for >3 months is consistent with chronic kidney disease. Refer to KDOQI guidelines for clinical interpretation. In patients with unstable renal function, e.g. those with acute kidney injury, the eGFR may not accurately reflect actual GFR. Performed By: #### CMP, TSH, HIV12C #### [facility] [address] [place] [id number] TSH Collected: 12/04/2017 Status: F Source: CAUSEY 11:22 AM [facility] REPOSITORY TYPE CODE TESTS RESULT OUT OF RANGE REFERENCE UNITS LAB TSH 0.400-5.500 uU/mL TSH 0.495 Result Comment: If the patient is , TSH reference range varies by gestational period: First Trimester 0.100-2.500 uU/mL Second Trimester 0.200-3.000 uU/mL Third Trimester 0.300-3.000 uU/mL References: 1. Poon L, Marisol M, Davide EK, et al. Management of Thyroid Dysfunction during and : An Endocrine Society Clinical Practice Guideline. J Clin Endocrinol Metab, 2012:97:0819-5994. 2. Raheem BREEN. Overview of thyroid disease in . UpToDate. 2016. Accessed on March 30, 2016. Performed By: #### CMP, TSH, HIV12C #### [facility] [address], [place] [address] HIV 12 COMBO (AG/AB) Collected: 12/04/2017 Status: F Source: CAUSEY 11:22 AM [facility] REPOSITORY TYPE CODE TESTS RESULT OUT OF REFERENCE UNITS RANGE LAB HVAGAB Non Reactive HIV Non Reactive 12 Ag/Ab Result Comment: (NOTE) HIV Information: [place] Rev. Code 3701.243(E): This information has been disclosed to you from confidential records protected from disclosure by state law. You shall make no further disclosure of this information without the specific, written, and informed release of the individual to whom it pertains, or as otherwise permitted by state law. A general authorization for the release of medical or other information is not sufficient for the purpose of the release of HIV test results or diagnoses. Performed By: #### CMP, TSH, HIV12C #### [facility] [address], [place] [address] PROGRESS Observed: 12/03/2017 Status: COMPLETED Source: CAUSEY 6:25 PM [facility] REPOSITORY HNO ID: [id number] Author: Slick Ocasio) Yaima Service: (none) Author Type: Physician Type: Progress Notes Filed: 12/03/2017 7:04 PM Note Text: Chief Complaint Patient presents with: Mouth/Lip Problem: Thrush with hives HPI Dalia Bella is a 41 year old female who presents here today for above complaint. Patient was seen at [facility] ED on 11/28 for complaint of hives and facial swelling. It was noted then that [facility] had [facility] and received kenalog injection and prednisone taper. Did not present to ED with either hives or facial swelling, but noted she had taken a benadryl tablet that morning. Blood work was obtained which showed mild elevation in WBC at 13.8 without eosinophils. Neutrophils were elevated. LFTs normal. Advised to keep diary regarding foods she is eating that may cause symptoms and told to follow up with PCP. Since discharge, patient states that she is still having itching and swelling. Complains of swelling in her hands and feet and ankles which is improved with benadryl, but has to take multiple times per day. Is down to 10 mg dosage of prednisone taper and does not seem to be working as well as her higher dosages. Still does not have any idea what could be causing this. Has not been on any new medications, new foods, detergents, soaps, clothing. Has not had recent travel. No contacts with similar rash. Has been keeping food diary and has not found anything that seems to make her symptoms worse. Having trouble sleeping due to the scratching and has bruising on her arms and legs from scratching so hard. Past medical history, appointments, medications, allergies reviewed. Previous Medical History PAST MEDICAL HISTORY Diagnosis Date - Backache, unspecified - Depression - Headache(784.0) - Menorrhagia - Obstructive sleep apnea Previous Surgical History PAST SURGICAL HISTORY Procedure Laterality Date - ESSURE 2010 Family History FAMILY HISTORY Problem Relation Age of Onset - Heart Mother 40 Double by-pass - Hypertension Father - Heart Maternal Grandmother - Alzheimer's Disease Maternal Grandmother Greatgrandmother - Diabetes Maternal Grandmother - Heart Maternal Grandfather - Diabetes Maternal Grandfather - Alzheimer's Disease Paternal Grandmother Greatgrandmother - Hypertension Paternal Grandfather - Hypertension Brother - Heart Maternal Uncle - Breast Cancer Paternal Aunt Two Aunts Patient Allergies ALLERGIES No Known Allergies Current Medications Current Outpatient Prescriptions on File Prior to Visit: cyclobenzaprine (FLEXERIL) 10 mg tablet Take 1 tablet by mouth daily at bedtime. gabapentin (NEURONTIN) 300 mg capsule Take 1 capsule by mouth three times daily. sertraline (ZOLOFT) 100 mg tablet Take 1 tablet by mouth once daily. No current facility-administered medications on file prior to visit. 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[employer]* Social History Main Topics Smoking status: Current Every Day Smoker Packs/day: 1.00 Years: 4.00 Types: Cigarettes Smokeless status: Never Used Alcohol use: Yes Comment: occasionally Drug use: No Sexual activity: Yes Partners with: Male control/protection: Surgical Comment: essure Review of Symptoms REVIEW OF SYSTEMS GENERAL: No weight loss, malaise or fevers RESPIRATORY: Negative for cough, hemoptysis, wheezing, COPD, dyspnea or shortness of breath CARDIOVASCULAR: Negative for chest pain, leg swelling, hypertension, CHF or palpitations GI: No nausea, vomiting, or diarrhea SKIN: See HPI EXAM: BP 100/64 (BP Site: Left Arm, BP Position: Sitting, BP Cuff Size: Regular Adult) Pulse 116 Temp 37.2 ?C (98.9 ?F) (Left Tympanic) Resp 16 Wt 59.1 kg (130 lb 6.4 oz) LMP 11/27/2017 SpO2 98% BMI 25.47 kg/m2 General Appearance: Well appearing, alert, in no acute distress, well-hydrated, well nourished. Mouth: mild thrush on tongue without lesions of pharynx or buccal mucosa. Skin: diffuse scattered macular rash on arms, legs, chest, and back. Bruising on anterior thighs from scratching. No raised lesions. Lungs: Lungs clear to auscultation. No wheezing, rhonchi, rales. Heart: RRR without murmur, gallop, or rubs. No ectopy. Health Maintenance List PAP EVERY 5 YEARS due on 02/07/2016 HPV EVERY 5 YEARS due on 02/07/2016 TETANUS due on 06/06/2021 ONE PNEUMOVAX PRIOR TO AGE 65 Completed INFLUENZA Completed ASSESSMENT/PLAN: 1. Thrush - ICD9: 112.0, ICD10: B37.0 (primary diagnosis) Will treat with diflucan for 1 week since she was on nystatin previously. To call if no resolution after 1 week. - FLUCONAZOLE 200 MG TABLET - HIV 1,2 COMBO (AG/AB) 2. Hives - ICD9: 708.9, ICD10: L50.9 Unknown etiology. Increase prednisone to 40 mg daily for 7 days and will have patient follow up with dermatology and parking lot attendant. Advised her to remove dairy from diet and start back with BRAT diet and slowly reintroduce vegetables, fruits, proteins, and then dairy to see if we can find a trigger for these symptoms. - CONSULT TO ALLERGY/IMMUNOLOGY - CONSULT TO DERMATOLOGY - PREDNISONE 20 MG TABLET 3. Pruritus - ICD9: 698.9, ICD10: L29.9 Will rule out other potential causes with blood work and contact with results. Follow up with specialists. Take prednisone along with 1st and 2nd generation antihistamines OTC. - TSH BLD - COMP METABOLIC PANEL - HIV 1,2 COMBO (AG/AB) - CONSULT TO ALLERGY/IMMUNOLOGY - PREDNISONE 20 MG TABLET Slick Erwin MD EMERGENCY DEPARTMENT Observed: 11/28/2017 Status: F Source: [place] SUMMARY 11:55 AM [facility] REPOSIT[facility] Medical Records Department [address] [place] [address] Emergency Department Summary 11/28/17 0956 MR#: [id number] Acct: [id number] Name: DALIA BELLA Rep #: [id number] : 1975 41 From: Caio Cartagena MD PCP: Camila Mercado MD Status: REG ER - ER Visit Summary Date of Service: 11/28/17 Chief Complaint: Hives and facial swelling this morning History of Present Illness: The patient is a 41 F who reports she has had hives since Saturday. [facility]. The documentation of the visit was read. She was treated with a Kenalog injection and tapering dose of prednisone. Patient states this morning she awoke with facial swelling and hives. She took a Benadryl tablet. The facial swelling and hives resolved but she is still complaining of itching. She denies any swelling of her lips, tongue or throat. She denied any change in voice or difficulty swallowing. She denies any chest pain or shortness of breath. She denied nausea, vomiting or diarrhea. She denies orthostatic symptoms. She is concerned because she has bruises. She is on no new medicine. She has not had any fruit, varies or shellfish in the past several days. Physical Examination: Vital signs are normal. She is not hypoxic. There is no evidence of angioedema. No hives are noted. Head is atraumatic normocephalic. Pupils are equal round reactive. Extraocular muscles are intact. TMs are pearly white with landmarks noted. Nares patent with no drainage. Posterior pharynx without erythema or exudate. Uvula is midline. There is no dysphonia or dysphasia. Trachea is midline. There is no stridor with auscultation of the neck. Heart is regular without murmur, gallop or rub. S1 and S2 are normal. Lungs are clear to auscultation with good movement of air bilaterally. Abdomen is soft nontender. Patient has multiple areas of excoriation and bruising secondary to scratching. There is no evidence of hives or angioedema. Test Results: Count is 13.8 with no eosinophilia. Hepatic profile is normal. Emergency Department Course and Treatment: CBC was obtained to assess platelet count and to determine if there is any eosinophilia. Because she reports darker colored urine Paddock was obtained to assess ALT AST and bilirubin. Treatment Plan: Patient was instructed to keep a diary with regards to what she eats and when she develops hives. She was instructed to follow-up with her primary care physician. She was instructed to return if she has swelling of her lips, tongue or throat or any difficulty breathing. He was reevaluated and she has no rash and she is no longer itching. Disposition: Discharge to home in stable and improved condition Impression: Pruritus and hives of unknown etiology This note was generated with TutorialTab dictation software. It may contain incorrect words, spelling, and punctuation that were not noted in review of the chart prior to signing ED Disposition - Plan for ED Patient: Disposition: Home or Assisted Living Chief Complaint: Allergic Reaction Instructions: ED Urticaria Referrals: Camila Mercado MD [Primary Care Provider] - 1 Week What to do if you have Problems For any increased pain, shortness of breath, bleeding, nausea or vomiting, chest pain, or any unexpected problems, contact your Primary Care Provider. Call [facility] ([phone]) or report to the closest Emergency Room. Call 911 if necessary. 11/28/17 8475 <Electronically signed by Caio Cartagena MD> Date Caio Cartagena MD Cosigner Signature (If Indicated): Date CC: Camila Mercado MD CBC W/DIFF, AUTOMATED Collected: 11/28/2017 Status: F Source: SONIYA 10:02 AM [facility] REPOSITORY TYPE CODE TESTS RESULT OUT OF RANGE REFERENCE UNITS LAB L100.1000 4.4-11.0 K/mm3 High WBC 13.8 LAB L100.1200 4.2-5.4 M/mm3 Low RBC 3.45 LAB L100.1300 12.0-15.0 g/dl Low HGB 11.2 LAB L100.1400 37-47 % Low HCT 33.0 LAB L100.1500 81-99 fL Normal MCV 95.7 LAB L100.1600 27.0-32.0 pg High MCH 32.5 LAB L100.1700 32-36 g/gl Normal MCHC 33.9 LAB L100.1810 11.6-14.6 % Normal RDW CV 13.6 LAB L100.1820 35.1-43.9 fl High RDW SD 45.2 LAB L100.1900 150-450 K/mm3 Normal PLT 338 LAB L100.2000 6.2-12.0 fl Normal MPV 8.7 LAB L100.2100 47-70 % High NEUT% 86.6 LAB L100.2200 19-41 % Low LY% 5.9 LAB L100.2300 0-10 % Normal MONO% 7.0 LAB L100.2400 0-5 % Normal EO% 0.0 LAB L100.2500 0-1 % Normal BASO% 0.1 LAB L100.2550 0.0-0.9 % Normal IM GRAN % 0.400 Result Comment: IG% - Immature Granulocytes (promyelocytes, myelocytes and metamyelocytes) > 1% indicates that a LEFT SHIFT is Present. LAB L100.2620 2.0-7.7 X10 3/uL High Absolute Neut 12.0 LAB L100.2720 0.83-4.51 X10 3/ul Low Absolute Lymph 0.81 Performed By: #### L100.0100 #### [facility] [address] [place], [address] LIVER PROFILE Collected: 11/28/2017 Status: F Source: SONIYA 10:02 AM [facility] REPOSITORY TYPE CODE TESTS RESULT OUT OF RANGE REFERENCE UNITS LAB L501.1500 6.4-8.2 g/dL Low T PROT 6.1 LAB L501.1800 3.2-5.0 g/dL Low ALB 3.0 LAB L501.1950 2.2-4.2 g/dL Normal GLOB 3.1 LAB L501.4100 15-37 U/L Normal AST 16 LAB L501.4305 45-117 U/L Normal ALK P 73 LAB L501.4405 13-56 U/L Normal ALT 24 Result Comment: Please note revised ALT reference range effective 2017. LAB L501.4600 0.20-1.00 mg/dL Normal T BILI 0.20 LAB L501.4700 0.00-0.30 mg/dL Normal D BILI 0.10 Performed By: #### L500.3400 #### [facility] [address] [place], [address] OFFICE VISIT REPORT Observed: 11/26/2017 Status: F Source: SONIYA 11:12 AM [facility]IT[facility] [place] [place] [facility] [address] [place] [address] OFFICE VISIT Date of Service: 09/19/17 MR#: [id number] Acct: [id number] Patient: DALIA BELLA Rep #: [id number] : 1975 Provider: Bal SANTOS Age/Sex: 41/F Location: [facility] Status: Signed Intake Vital Signs09/19/17 Height 5 ft Intake Visit Reasons: cute on lower left buttock Software Configuration Specialist Required: No Accompanied by: None Allergies No Known Allergies Allergy (Verified 07/18/17 09:57) Medications Oxycodone HCl/Acetaminophen [Percocet 5/325] 1 - 2 tab PO Q4H PRN PRN 07/18/17 [History Confirmed 07/28/17] Gabapentin [Neurontin] 300 mg PO TIDCM 07/28/17 [History Confirmed 07/28/17] Sertraline HCl [Zoloft] 100 mg PO DAILY 07/28/17 [History Confirmed 07/28/17] PFSH Medical History Perianal abscess (Acute) Social History Smoking Status: Current every day smoker HPI cute on lower left buttock: Chief Complaint: perianal abscess discomfort Details: DALIA BELLA, is a 41 F who presents to the office today for evaluation of previously surgically revised perianal abscess in June 2017 by [facility] General Surgeon. Patient notes since having a perianal abscess surgically revised/excised and then reevaluated approximately a month later with cautery application applied to the same due to persistent drainage, that she has had persistent moderate aching discomfort and persistent scant serosanguineous drainage from the same. She has no complaints of fever, chills, sweats - though she notes persistent mild nausea since the date of the initial surgery. Pt here requesting second opinion on care of same. ROS Const Constitutional: Positive for other (Perianal abscess with persistent discomfort and drainage); no excessive sweating, abnormal sleep pattern, chills, fever(s) or night sweats Eyes Eyes: Positive for other (Perianal abscess with persistent discomfort and drainage); no change in vision ENT ENT: Positive for other (Perianal abscess with persistent discomfort and drainage); no abnormal hearing, ear pain, ear discharge, ear pressure or hearing loss Resp Respiratory: Positive for other (Perianal abscess with persistent discomfort and drainage); no cough or chest congestion Cardio Cardiology: Positive for other (Perianal abscess with persistent discomfort and drainage); no excessive sweating, chest pain at rest, chest pain with exertion, shortness of breath, dyspnea on exertion, irregular heart rhythm, generalized swelling or leg pain with exertion Gastro GI: Positive for other (Perianal abscess with persistent discomfort and drainage); no abdominal pain, change in stool character or change in bowel habits Genitourinary: Positive for other (Perianal abscess with persistent discomfort and drainage) Musc Musculoskeletal: Positive for other (Perianal abscess with persistent discomfort and drainage); no joint pain, back pain or limited range of motion Skin Skin: Positive for other (Perianal abscess with persistent discomfort and drainage); no change in hair or sores Neuro Neurology: Positive for other (Perianal abscess with persistent discomfort and drainage); no abnormal hearing, abnormal speech or abnormal movements Psych Psychiatric: No abnormal sleep pattern, Positive for other (Perianal abscess with persistent discomfort and drainage) Endo Endocrine: Positive for other (Perianal abscess with persistent discomfort and drainage); no excessive sweating, change in body appearance, cold intolerance or heat intolerance Aller/Imm Allergy/Immunologic: Positive for other (Perianal abscess with persistent discomfort and drainage); no food intolerance Samuel/Lymp Hematologic/Lymphatic: Positive for other (Perianal abscess with persistent discomfort and drainage); no easy bruising Exam Const General: cooperative, healthy appearing, comfortable Nutritional Appearance: average body habitus Orientation: alert, awake, oriented x3 Eyes General: appearance normal, both eyes and all related structures Chest Chest palpation AND inspection: normal inspection of the chest (With unlabored symmetrical respirations) Skin Lesions: lesion noted (Left perianal abscess w/ pinpoint opening w/o fluctuance or discharge), other (Nonadherent dressing change after evaluation; pt tolerated well.) Neuro General: alert, awake, oriented x3 Cognition: normal cognition Speech: speech normal Gait: normal gait Psych Appearance: grossly normal Mental Status: mental status grossly normal Mood: congruent mood Affect: normal affect Speech and Movement: speech and movement normal Attitude: cooperative Thought Process: normal Thought Content: normal Judgment: judgment good Assessment AND Plan Problems 1. Perianal abscess K61.0 Plan Continue wound care as instructed today. Recommend follow-up with [facility] general surgery for second opinion; business card from [facility] given to patient for her to make arrangements for follow-up. Patient informed she should obtain medical progress notes from [facility] general surgeon to bring with her for initial evaluation with [facility] general surgeon. Patient states acknowledging understanding all the above. Coding Level of Care Code Off vis,new,level 3 Diagnoses Perianal abscess K61.0 11/26/17 1112 <Electronically signed by Bal SANTOS> Date Bal SANTOS Cosigner Signature: Date (if applicable) CC: URGENT CARE VISIT Observed: 11/25/2017 Status: F Source: SONIYA REPORT 8:34 AM [facility] REPOSITORY [address] [address] OFFICE VISIT Date of Service: 11/25/17 MR#: [id number] Acct: [id number] Name: DALIA BELLA Rep #: [id number] : 1975 Provider: Rogerio SANTOS Age/Sex: 41/F Location: [facility] Status: Signed Intake Vital Signs11/25/17 Height 5 ft 11/25/17 Weight: 123 lb 11/25/17 Body Mass Index (BMI) 24.0 11/25/17 Blood Pressure 96/64 Intake Visit Reasons: RASH/HIVES Software Configuration Specialist Required: No Is patient in pain?: No Allergies No Known Allergies Allergy (Verified 11/25/17 08:06) Medications Oxycodone HCl/Acetaminophen [Percocet 5/325] 1 - 2 tab PO Q4H PRN PRN 07/18/17 [History Confirmed 11/25/17] Gabapentin [Neurontin] 300 mg PO TIDCM 07/28/17 [History Confirmed 11/25/17] Sertraline HCl [Zoloft] 100 mg PO DAILY 07/28/17 [History Confirmed 11/25/17] prednisone 10 mg tablet 10 mg PO QDAY 12 Days #30 tab 11/25/17 [Rx Confirmed 11/25/17] PFSH Social History Smoking Status: Current every day smoker alcohol intake: never HPI HPI Details: DALIA BELLA, is a 41 F who presents to the office today for rash to her torso and bilateral upper and lower extremities for the past 5 days. Patient states that she finished a course of Diflucan the day after she started to notice a rash. She states that the rash has been very pruritic to the point of causing bruises from her itching. She denies shortness of breath, difficulty breathing or tongue swelling. No chest pain or irregular heart rhythms. No fever, chills, sweats. No other associated symptoms or alleviating/aggravating factors. ROS Const Constitutional: No chills, fever(s), fatigue or abnormal sleep pattern Eyes Eyes: No discharge, dry eyes or blurry vision Resp Respiratory: No shortness of breath, chest congestion, cough, hemoptysis, pain with cough or wheezing Cardio Cardiology: No chest pain at rest, chest pain with exertion or shortness of breath Skin Skin: Positive for rash and itching; no wounds or lesions Neuro Neurology: No behavioral changes or confusion Psych Psychiatric: No behavioral changes, No confusion, No abnormal sleep pattern Endo Endocrine: No fatigue Aller/Imm Allergy/Immunologic: Positive for itchy eyes; no wheezing Exam Const General: cooperative, healthy appearing [facility] Head: normocephalic, atraumatic Ears: hearing grossly normal bilaterally Face and sinus: face symmetric Eyes General: appearance normal, both eyes and all related structures Pupils: PERRL Resp Effort AND Inspection: normal respiratory effort Auscultation: Bilateral: Clear to Auscultation Cardio Rate: regular rate Rhythm: regular rhythm Heart Sounds: S1 normal, S2 normal Skin Rashes: rashes noted hives diffuse multiple locations: distribution mild (welting d/t scratching.) Psych Appearance: grossly normal Assessment AND Plan Problems 1. Rash of entire body R21 Status Acute Plan Patient advised to discontinue use of Diflucan for the future and to finish full regimen of prednisone given to her today. Advised of potential side effects and interactions with prednisone and advised of potential red flags and when to report to the ED. Patient verbalized understanding of all the above. This note was generated with TutorialTab dictation software. It may contain incorrect words, spelling, and punctuation that were not noted in checking the note before signing. Orders Orders: Medications New: prednisone Take 4 tabs once daily days 1-3 3 tabs once dail10 mg PO QDAY 12 days L25.9 y days 4-6 2 tabs once daily days 7-9 and 1 tab once daily day s 10-12. Coding Level of Care Code Off vis,est,level 3 Diagnoses Rash of entire body R21 11/25/17 0834 <Electronically signed by Rogerio SANTOS> Date Rogerio SANTOS Cosigner Signature: Date (if applicable) CC: ALLERGIES ALLERGIES DATE TYPE / CODE NAME / CODE REACTION SEVERITY SOURCE 11/03/2018 Drug nystatin/[id number] Hives Unknown [facility]/416 889(RXNORM) [facility] 623373(SNOM Repository ED CT) 02/10/2018 DRUG NYSTATIN HIVES [facility] INGREDI/[address] 851707(SNOM Repository ED CT) 01/16/2018 Drug No Known Unknown [facility]/416 Allergies/Q02926 Hospital 763858(SNOM 0388(RXNORM) Repository ED CT) Drug NO KNOWN [facility] Class/06338 ALLERGIES [address] [place] 1003(SNOMED Repository CT) ENCOUNTERS ENCOUNTERS ADMIT/DISCHARGE ACCOUNT ADMITTING ENCOUNTER LOCATION SOURCE NUMBER CLASS 11/03/2018/11/03/19 [id number] Emergency [address] ing:ED Repository 09/22/2018/09/22/20 [id number] Emergency [address] ing:ED Repository 05/22/2018/05/23/20 [id number] Ambulatory [address] [place] Repository 04/01/2018/04/02/20 [id number] Ambulatory [address] Repository 02/26/2018/02/27/20 [id number] Ambulatory [address] Repository 02/19/2018/02/21/20 [id number] Ambulatory [address] Repository 02/12/2018/02/13/20 [id number] Emergency [address] ing:ED Repository 02/10/2018/02/19/20 [id number] Ambulatory [address] [place] Repository 01/21/2018/01/22/20 [id number] PRAKASH GALE Ambulatory [address] [place] Repository 01/20/2018/01/21/20 [id number] Ambulatory [address] [place] Repository 01/20/2018/01/22/20 [id number] Ambulatory [address] [place] Repository 01/20/2018/01/21/20 [id number] Ambulatory [address] [place] Repository 01/20/2018 [id number] Ambulatory [facility] [place] Repository 01/20/2018/01/21/20 [id number] Ambulatory [address] [place] Repository 01/16/2018/01/17/20 [id number] Ambulatory BMSBuilding:B Soniya 20 MS.NOW [facility] Hospital Repository 01/01/2018/01/08/20 [id number] Ambulatory [address] Repository 12/30/2017/01/03/20 [id number] Ambulatory [address] Repository 12/04/2017/12/04/19 [id number] Ambulatory [address] Repository 12/03/2017/12/04/19 [id number] Ambulatory [address] Repository 11/28/2017/11/28/19 [id number] Emergency Soniya [place] 18 [facility] ing:ED Repository 11/25/2017/11/25/19 [id number] Ambulatory BMSBuilding:B Soniya 18 MS.NOW [facility] Hospital Repository 09/19/2017/09/19/20 [id number] Ambulatory BMSBuilding:B [place] 17 MS.NOW [facility] Repository PAYERS PAYERS ENCOUNTER GUARANTOR PAYER SUBSCRIBER SOURCE 11/03/2018 DALIA Baum Primary Insurance:[facility] DALIA A Soniya [id number] [facility] Number: [id number], [place] [id number] Repository [address]Dvy: ([phone]) Date:[id number] [phone] () [address] [place] [address]8894IN: 11/03/2018 Secondary NOT GIVENUNK Soniya Insurance:SELF PAY [facility] Number: Effective Repository Date:2018-11-03 09/22/2018 DALIA Buam Primary Insurance:[facility] DALIA A [place] [id number] [facility] Number: [id number], [place] [id number] Repository 376[address]Jml: (330) Date:[id number] [phone] () [address] [place] [address] 17362WK: 09/22/2018 Secondary NOT GIVENUNK Soniya Insurance:SELF PAY [facility] Number: Effective Repository Date:2018-09-22 02/12/2018 DALIA A Primary Insurance:[facility] DALIA A Soniya [id number] COMMUNITY PLANPolicy PHILPOTTDOB: Community [place] Number: [id number], [place] [id number] Repository [address]Gni: (330) Date:[id number] [phone] () [address] [place] [address] 74934EB: 02/12/2018 Secondary NOT GIVENUNK [place] Insurance:SELF PAY [facility] Number: Effective Repository Date:2018-02-12 01/16/2018 DALIA A Primary Insurance:[facility] DALIA A [place] [id number] COMMUNITY PLANPolicy PHILPOTTDOB: Community [place] Number: [id number], [place] [id number] Repository 314[address]Lwu: (330) Date:[id number] [phone] () [address] [place] [address] 80127OK: 01/16/2018 Secondary NOT GIVENUNK Soniya Insurance:SELF PAY [facility] Number: Effective Repository Date:2018-01-16 11/28/2017 DALIA A Primary Insurance:[facility] DALIA A [place] [id number] COMMUNITY PLANPolicy PHILPOTTDOB: Community [place] Number: [id number], [place] [id number] Repository [address]Tac: (330) Date:[id number] [phone] () [address] [place] [address] 34517CA: 11/28/2017 Secondary NOT GIVENUNK [place] Insurance:SELF PAY [facility] Number: Effective Repository Date:2017-11-28 11/25/2017 JOSE A Primary Insurance:[facility] DALIA A [place] [id number] COMMUNITY PLANPolicy PHILPOTTDOB: Community [place] Number: [id number], [place] [id number] Repository 688[address]Ztd: (330) Date:[id number] [phone] (HP) [address] [place] [address] 12373MH: 11/25/2017 Secondary NOT GIVENUNK [place] Insurance:SELF PAY [facility] Number: Effective Repository Date:2017-11-25 09/19/2017 DALIA Baum Primary Insurance:[facility] DALIA [place] [id number] [facility] PHILPOTTDOB: [facility] Number: [id number], [place] [id number] Repository 95798Nxx: (330) Date:[id number] [phone] () [place], [place] [address]OJ: 09/19/2017 Secondary NOT GIVENUNK Soniya Insurance:SELF PAY [facility] Number: Effective Repository Date:2017-09-19
== END 2018-09-22 18:11 | disposition home or self-care (01) ==
LOC: ED 15:26
PROVIDERS: Emergency Provider Emergency Medicine; Family Provider Family Medicine; PCP Family Medicine
DX: J06.9 Acute upper respiratory infection, unspecified (principal); R74.8 Abnormal levels of other serum enzymes; F32.9 Major depressive disorder, single episode, unspecified; F17.200 Nicotine dependence, unspecified, uncomplicated; Z79.899 Other long term (current) drug therapy
CPT/HCPCS: 71046; 71275; 80048; 83880; 85025; 85379; 93005; 94640; 96360; 96361; 99284; J7030; J7040; Q9967

== ENCOUNTER 2018-11-03 13:10 | Emergency (ER) | payer MEDICAID, SELFPAY ==
[2018-11-03 13:11] VITALS: BP 100/62; PULSE 85; RESP 16; TEMP 36.5; O2SAT 97; BMI 22.6
--- NOTE | 2018-11-03 13:26 | ED.VISSUMM ---
- ER Visit Summary Date of Service: 11/03/18 Chief Complaint: Instructed by spine surgeon to present to the emergency department History of Present Illness: The patient is a 42 F who sustained blunt head trauma on Saturday. There was no loss of conscious. She is not amnestic. He is on no anticoagulant. She does report transient blurred vision, which has resolved. She reports trouble with sleeping. She reports tingling in her hands and feet, which is a chronic condition. There is no change. She denied nausea or vomiting. She denies change in color urine. She has no other complaints. Physical Examination: Vital signs noted normal. Head is atraumatic normocephalic. Pupils are equal round reactive. Extraocular muscles are intact. TMs are pearly white with landmarks noted. Nares patent with no drainage. Posterior pharynx without erythema or exudate. Uvula is midline. There is no dysphonia or dysphasia. Trachea is midline. There is no stridor with auscultation of the neck. There is no midline neck pain. Heart is regular without murmur, gallop or rub. S1 and S2 are normal. Lungs are clear to auscultation with good movement of air bilaterally. Abdomen soft nontender. GCS is 15. Patient is alert and oriented ?3. Motor is 5/5. Sensation is intact. DTRs are symmetric without clonus or Babinski. Cranial nerves II through XII are intact. Finger to nose to finger was performed adequately. Test Results: None were obtained Emergency Department Course and Treatment: Based on the [place] CT head rule and the Fate rule radiologic imaging is not indicated. Since she did not have neck pain initially radiologic imaging of the neck is not required either. Treatment Plan: Ice, avoid movement that causes pain and anti-inflammatory Disposition: Discharged home in stable condition Impression: 1. Concussion without loss of consciousness 2. Cervical strain secondary to blunt injury initial encounter This note was generated with [employer] dictation software. It may contain incorrect words, spelling, and punctuation that were not noted in review of the chart prior to signing ED Disposition - Plan for ED Patient: Disposition: Home or Assisted Living Chief Complaint: Fall Instructions: ED Concussion, ED Sprain Strain Neck Referrals: Cornelius Erwin MD [Primary Care Provider] - As Needed
--- OUTSIDE RECORDS SUMMARY | 2019-01-06 01:34 | XMS RPT_ITS ---
:1975 Author Organization OHIP Support Name Relationship Address Phone DEEPAK FLORES Unavailable [address] + [place] [address] VASILIY, BILL Unavailable [address] + [place] [address] UE Unavailable Unavailable Unavailable DEEPAK FLORES Unavailable [address] + [place] [address] VASILIY, BILL Unavailable [address] + [place] [address] UE Unavailable Unavailable Unavailable DEEPAK FLORES Unavailable [address] + [place] [address] [facility] Unavailable [address], [address] + [place] [address] VASILIY, BILL Unavailable [address] + [place] [address] DEEPAK FLORES Unavailable [address] + [place] [address] [facility] Unavailable [address], [address] + [place] [address] VASILIY, BILL Unavailable [address] + [place] [address] DEEPAK FLORES Unavailable [address] + [place] [address] [facility] Unavailable [address], [address] + [place] [address] VASILIY, BILL Unavailable [address] + [place] [address] BIERLEIN, DEEPAK Unavailable [address] + [place] [address] [facility] Unavailable [address], [address] + [place] [address] VASILIY, BILL Unavailable [address] + [place] [address] DEEPAK FLORES Unavailable [address] + [place] [address] [facility] Unavailable [address] + [address] [address] VASILIY, BILL Unavailable [address] + [place] [address] Care Team Providers Name Role Phone SLICK [...] Unavailable SLICK ERWIN) Referring Unavailable BRITTANY WARD (LINING CEMENTER) Attending Unavailable SLICK ERWIN) Attending Unavailable SLICK [...] Active Encounter for other DORSEY, YAMILKA Active [facility] preprocedural [place] examination / Repository Z01.818(ICD-10) 01/20/2018 Active Unknown / PRAKASH GALE Active [facility] UNK(Unknown) [place] Repository 01/01/2018 Active Anal fistula / NA Active [facility] K60.3(ICD-10) [place] Repository 01/16/2018 Unknown J02.9 - Acute Bal Saucedo Active [place] pharyngitis, Community unspecified / Hospital J02.9(ICD-10) Repository 01/16/2018 Unknown B37.0 - Candidal Bal Saucedo Active [place] stomatitis / Community B37.0(ICD-10) Hospital Repository 12/04/2017 Active Pruritus, NA Active [facility] unspecified / [place] L29.9(ICD-10) Repository 12/04/2017 Active Candidal stomatitis NA Active [facility] / B37.0(ICD-10) [place] Repository 03/04/2018 Unknown R21 - Rash and Rogerio Knutson Active [place] other nonspecific Community skin eruption / Hospital R21(ICD-10) Repository 03/04/2018 Unknown L25.9 - Unspecified Rogerio Knutson Active [place] contact dermatitis, Community unspecified cause / Hospital L25.9(ICD-10) Repository PROCEDURES PROCEDURES No Procedure Records FoundRESULTS RESULTS EMERGENCY DEPARTMENT Observed: 11/03/2018 Status: F Source: [place] SUMMARY 1:32 PM [facility] REPOSIT[facility] Medical Records Department [address] [place] [address] Emergency Department Summary 11/03/18 1326 MR#: [id number] Acct: [id number] Name: DALIA BELLA Rep #: [id number] : 1975 42 From: Caio Cartagena MD [...] Department Course and Treatment: Based on the [place] CT head rule and the [place] rule radiologic imaging is not indicated. Since she did not have neck pain initially radiologic imaging of the neck is not required either. Treatment Plan: Ice, avoid movement that causes pain and anti-inflammatory Disposition: Discharged home in stable condition Impression: 1. Concussion without loss of consciousness 2. Cervical strain secondary to blunt injury initial encounter This note was generated with [employer] dictation software. It may contain incorrect words, [...] problems, contact your Primary Care Provider. Call [facility] ([phone]) or report to the closest Emergency Room. Call 911 if necessary. 11/03/18 0522 <Electronically signed by Caio Cartagena MD> Date Caio Mcintosh Signature (If Indicated): Date CC: Cornelius Erwin MD 12 LEAD ELECTROCARDIOGRAM Observed: 09/26/2018 Status: F Source: [place] 10:48 AM [facility] Cardiovascular Services [address] [place] [address] 12 Lead EKG 09/22/18 1542 MR#: [id number] Acct: [id number] Name: DALIA BELLA Rep #: [id number] : 1975 42 From: Blake Lundberg MD [...] ECG Confirmed by FABIAN BAUMAN, BLAKE ([id number]), staff editor BRAEDEN TRAYLOR ([id number]) on 09/26/2018 10:47:38 AM Referred By: SJ Confirmed By:BLAKE LUNDBERG MD 09/26/18 1047 Date Blake Lundberg MD CC: MD Miles Monk; Cornelius Erwin MD Signed EMERGENCY DEPARTMENT Observed: 09/22/2018 Status: F Source: [place] SUMMARY 11:00 PM [facility] REPOSITORY [facility] Medical Records Department [address] [place] [address] Emergency Department Summary 09/22/18 1522 MR#: [id number] Acct: [id number] Name: DALIA BELLA Rep #: [id number] : 1975 42 From: Elizabeth Monk MD [...] no fever no abdominal pain history of NM PE DVT she indicates she is here [...] weeks URI This note was generated with [employer] software. It may contain incorrect words, spelling, [...] your Primary Care Provider. Call [facility] ([phone]) or report to the closest Emergency Room. Call 911 if necessary. 09/22/18 2300 <Electronically signed by Elizabeth Monk MD> Date Elizabeth Monk MD Cosigner Signature (If Indicated): Date CC: Cornelius Erwin MD DISCHARGE INSTRUCTION Observed: 09/22/2018 Status: F Source: [place] 5:57 PM [facility] REPOSITORY [facility] Medical Records Department [address] [facility] [place] [address] Discharge Instruction 09/22/181755 MR#: [id number] Acct: [id number] Name: DALIA BELLA Rep #: [id number] : 1975 42 From: Elizabeth Monk MD [...] your Primary Care Provider. Call [facility] ([phone]) or report to the closest Emergency Room. Call 911 if necessary. 09/22/18 1757 <Electronically signed by Elizabeth Monk MD> Date Elizabeth Monk MD Cosigner Signature (If Indicated): Date _ CC: Cornelius Erwin MD DISCHARGE INSTRUCTION Observed: 09/22/2018 Status: F Source: [place] 5:54 PM [facility] REPOS[facility] Medical Records Department [address] [place] [address] Discharge Instruction 09/22/181752 MR#: [id number] Acct: [id number] Name: DALIA BELLA Rep #: [id number] : 1975 42 From: Elizabeth Monk MD [...] your Primary Care Provider. Call [facility] ([phone]) or report to the closest Emergency Room. Call 911 if necessary. 09/22/181753 <Electronically signed by Elizabeth Monk MD> Date Elizabeth Monk MD Cosigner Signature (If Indicated): Date CC: Cornelius Erwin MD CTA CHEST W/WO Observed: 09/22/2018 Status: F Source: [place] CONTRAST 4:12 PM [facility] REPOSITORY [facility] [place] [address] CTA Chest W/WO Contrast MR#: [id number] Acct: [id number] Name: DALIA BELLA Rep #: [id number] : 1975 F 42 From: Steve Gordon MD PCP: Cornelius Erwin MD Status: REG ER Study: CTA Chest W/WO Contrast Date of Exam: 09/22/18 Exam# [id number] Ordering Dr: Elizabeth Monk MD STUDY: CTA [...] CC: MD Miles Monk; Cornelius Erwin MD Wrapper Stemmer Hand: Signed CBC W/DIFF, AUTOMATED Collected: 09/22/2018 Status: F Source: [place] 3:40 PM [facility] REPOSITORY TYPE CODE TESTS RESULT OUT OF [...] Lymph 2.30 Performed By: #### L100.0100 #### [facility] [place], [address] BASIC METABOLIC Collected: 09/22/2018 Status: F Source: [place] PROFILE (BMP) 3:40 PM [facility] REPOSITORY TYPE CODE TESTS RESULT OUT OF [...] GAP 9 Performed By: #### L500.2500 #### [facility] [place], [address] D-DIMER QUANTITATIVE Collected: 09/22/2018 Status: F Source: [place] (DVT/PE) 3:40 PM [facility] REPOSITORY TYPE CODE TESTS RESULT OUT OF [...] MODESTO . Performed By: #### L300.8000 #### [facility] [address] [place], [address] BNP,B-TYPE NATRIURETIC Collected: 09/22/2018 Status: F Source: [place] PEPTIDE 3:40 PM [facility] REPOSITORY TYPE CODE TESTS RESULT OUT OF RANGE REFERENCE UNITS LAB L503.6620 0-100 pg/mL Normal B-TYPE 17.2 SANJEEV PEP Performed By: #### L503.6620 #### [facility] [address] [place], [address] CHEST PA AND LATERAL Observed: 09/22/2018 Status: F Source: [place] 3:20 PM [facility] REPOSITORY [facility] Imaging Services [address] [place] [address] Chest PA and Lateral MR#: [id number] Acct: [id number] Name: DALIA BELLA Bautista Rep #: [id number] : 1975 F 42 From: Steve Gordon MD PCP: Cornelius Erwin MD Status: REG ER Study: Chest PA and Lateral Date of Exam: 09/22/18 Exam# [id number] Ordering Dr: Elizabeth Monk MD STUDY: X-RAY [...] CC: MD Miles Monk; Cornelius Erwin MD Wrapper Stemmer Hand: Signed CNOV Observed: 05/22/2018 Status: COMPLETED Source: [place] 1:00 PM [facility] REPOSITORY Office Visit (FAMPWS) VASILIYDALIA ([id number]) 1975 F Date Time Provider Department 05/22/18 1:00 PM [facility] ERWIN[facility] During your visit today, we recorded the following information about you: Pulse Respiration Blood pressure Weight 72/minute 12/minute 96/66 55.8 kg Slick Erwin MD 05/22/2018 1:22 PM Signed Chief Complaint Patient presents with: F/U 3 Month HPI Daliadanial Bella is a 42 year old female who presents here today for 3 month follow up. Following up regularly with facility specialist for history of cervical neuritis and [...] pap smear since 2010. Needs referral to SUPERVISOR B[employer] [facility] today. 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[employer]* Social History [...] Erwin MD Referring Provider: SLICK ERWIN () [[id number]] Allergies As of Date: 05/22/2018 Noted Allergy [...] [E78.5] Order(s):CONSULT TO GYNECOLOGY [9013] Order #: [id number]: 1 NANY SCREENING [1589146] Order #: [id number] FUTURE COMP METABOLIC PANEL [SQCMP] Order #: [id number] FUTURE LIPID PANEL BASIC [SQLIPB] Order #: [id number] FUTURE Prescriptions as of 05/22/2018 Sig: SERTRALINE [...] 05/22/18 PROGRESS Observed: 05/22/2018 Status: COMPLETED Source: [place] 12:55 PM [facility] [place] REPOSITORY HNO ID: [id number] Author: Slick Ocasio) Yaima Service: (none) Author Type: Physician Type: Progress Notes Filed: 05/22/2018 1:22 PM Note Text: Chief Complaint Patient presents with: F/U 3 Month HPI Dalia Bella is a 42 year old female who presents here today for 3 month follow up. Following up regularly with facility specialist for history of cervical neuritis and [...] pap smear since 2010. Needs referral to [facility] [facility] today. 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 SIGNATURE: Brittany Ward APRN.RIGGING WORKER PATIENT NAME: Dalia Bella DATE: April 01, [...] 04/01/18 PROGRESS Observed: 02/26/2018 Status: COMPLETED Source: [place] 3:03 PM [facility] REPOSITORY [facility] ID: [id number] Author: Prakash Gale Service: (none) Author Type: [...] specific complaints, She has not seen a interface developer. She is sp of EUA and fistulotomy [...] PM CNOV Observed: 02/26/2018 Status: COMPLETED Source: [place] 3:00 PM [facility] REPOSITORY Office Visit (CORN) DALIA BELLA ([id number]) 1975 F Date Time Provider Department 02/26/18 [...] specific complaints, She has not seen a interface developer. She is sp of EUA and fistulotomy [...] 2018 3:03 PM Referring Provider: SLICK ERWIN) [[id number]] Allergies As of Date: 02/26/2018 Noted Allergy [...] 02/26/18 PROGRESS Observed: 02/19/2018 Status: COMPLETED Source: [place] 3:41 PM [facility] [place] REPOSITORY HNO ID: [id number] Author: Slick Erwin () Service: (none) Author Type: Physician Type: Progress Notes Filed: 02/19/2018 4:53 PM Note Text: Chief Complaint No chief complaint on file. HPI Dalia Bella is a 42 year old female who presents here today for ER Follow Up.. 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 [facility] Daliadanial Bella is a 42 year old female who presents here today for ER Follow Up.. 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 - [facility] SCREENING 3. Hypotension, unspecified hypotension type - [...] unspecified hypotension type [I95.9] Tobacco use [Z72.0] Order(s):[facility] SCREENING [3420151] Order #: [id number] FUTURE Prescriptions as of 02/19/2018 Sig: ACETAMINOPHEN [...] 02/12/2018 Status: F Source: [place] 10:17 PM [facility] REPOSITORY [facility] Medical Records Department [address] [place] [address] Discharge Instruction 02/12/182215 MR#: [id number] Acct: [id number] Name: DALIA BELLA Rep #: [id number] : 1975 42 From: Judith Macario MD [...] your Primary Care Provider. Call [facility] ([phone]) or report to the closest Emergency Room. Call 911 if necessary. 02/12/182216 <Electronically signed by Judith Macario MD> Date Judith Macario MD Cosigner Signature (If Indicated): Date CC: Cornelius Erwin MD EMERGENCY DEPARTMENT Observed: 02/12/2018 Status: F Source: [place] SUMMARY 10:16 PM [facility] REPOSITORY [facility] Medical Records Department [address] [place] [address] Emergency Department Summary 02/12/18 1936 MR#: [id number] Acct: [id number] Name: DALIA BELLA Rep #: [id number] : 1975 42 From: Judith Macario MD [...] Abdominal pain This note was generated with [employer] dictation software. It may contain incorrect words, [...] your Primary Care Provider. Call [facility] ([phone]) or report to the closest Emergency Room. Call 911 if necessary. 02/12/18 2212 <Electronically signed by Judith Macario MD> Date Judith Macario MD Cosigner Signature (If Indicated): Date CC: Cornelius Erwin MD URINALYSIS, COMPLETE Collected: 02/12/2018 Status: F Source: [place] 8:43 PM [facility] REPOSITORY Order Comment: How was Urine Obtained? [...] URINE SEEN Performed By: #### L400.0001 #### [facility] [address] [place], [place], [address] CBC W/DIFF, AUTOMATED Collected: 02/12/2018 Status: F Source: [place] 7:52 PM [facility] REPOSITORY TYPE CODE TESTS RESULT OUT OF [...] Lymph 2.73 Performed By: #### L100.0100 #### [facility] [address] [place], [address] BASIC METABOLIC Collected: 02/12/2018 Status: F Source: [place] PROFILE (BMP) 7:52 PM [facility] REPOSITORY TYPE CODE TESTS RESULT OUT OF [...] Performed By: #### L500.2500, L500.3400, L501.2450 #### [facility] [address] [facility] [place], [address] LIVER PROFILE Collected: 02/12/2018 Status: F Source: [place] 7:52 PM [facility] REPOSITORY TYPE CODE TESTS RESULT OUT OF [...] Performed By: #### L500.2500, L500.3400, L501.2450 #### [facility] [address] [place], [address] LIPASE Collected: 02/12/2018 Status: F Source: [place] 7:52 PM [facility] REPOSITORY TYPE CODE TESTS RESULT OUT OF RANGE REFERENCE UNITS LAB L501.2450 73-393 U/L Normal LIPASE 206 Performed By: #### L500.2500, L500.3400, L501.2450 #### [facility] [address] [place], [address] ABDOMEN/PELVIS WITH Observed: 02/12/2018 Status: F Source: [place] CONTRAST 7:37 PM [facility] REPOSITORY [facility] Imaging Services [address] [facility] [place] [address] Abdomen/Pelvis WITH Contrast MR#: [id number] Acct: [id number] Name: DALIA BELLA Rep #: [id number] : 1975 F 42 From: Marino Miranda MD PCP: Cornelius Erwin MD Status: REG ER Study: Abdomen/Pelvis WITH Contrast Date of Exam: 02/12/18 Exam# [id number] Ordering Dr: Judith Macario MD STUDY: CT [...] CC: Judith Macario MD; Cornelius Erwin MD Wrapper Stemmer Hand: Signed PROGRESS Observed: 02/10/2018 Status: COMPLETED Source: [place] 12:00 PM [facility] REPOSITORY HNO ID: [id number] Author: Jordyn Lopez (Gino), TOM Service: (none) Author Type: Physician Cto Type: Progress Notes Filed: 02/17/2018 11:09 PM [...] IMPRESSION: Scaly erythematous papule to the left rastafarian x1 Lichenified papules throughout Densely scattered light [...] instructions provided, pt verbalizes understanding. Hayde Glass APRN.RIGGING WORKER 2) Solar lentigines, Clinically benign appearing nevi, Angiomas, Seborrheic Keratoses, Benign lichenoid keratoses- reassured and educated, Sunscreen / sunblock protection reviewed. Follow up in 1 year and PRN Hayde Glass APRN.RIGGING WORKER- Training Jordyn Lopez PA-C Attending: Dr. Lewis The documentation for this note was completed by Alba Carrillo LPN acting as scribe for Jordyn Lopez PA-C, PA. February 10, 2018 12:04 PM. I agree with the Chief Complaint, ROS, and Past Histories independently gathered by the clinical legal support analyst and the remaining scribed note accurately describes my personal service to the patient. CNOV Observed: 02/10/2018 Status: COMPLETED Source: [place] 12:00 PM [facility] REPOSITORY Office Visit (DERMST) DALIA BELLA ([id number]) 1975 F Date Time Provider Department 02/10/18 [...] IMPRESSION: Scaly erythematous papule to the left rastafarian x1 Lichenified papules throughout Densely scattered light [...] instructions provided, pt verbalizes understanding. Hayde Glass APRN.RIGGING WORKER 2) Solar lentigines, Clinically benign appearing nevi, Angiomas, Seborrheic Keratoses, Benign lichenoid keratoses- reassured and educated, Sunscreen / sunblock protection reviewed. Follow up in 1 year and PRN Hayde Glass APRN.RIGGING WORKER- Training Jordyn Lopez PA-C Attending: Dr. Lewis The documentation for this note was completed by Alba Carrillo LPN acting as scribe for Jordyn Lopez PA-C, PA. February 10, 2018 12:04 PM. I agree with the Chief Complaint, ROS, and Past Histories independently gathered by the clinical legal support analyst and the remaining scribed note accurately describes my personal service to the patient. Hayde Glass ([facility]) 02/10/2018 12:30 PM Signed [facility] DERMATOLOGY DEPARTMENT Liquid Nitrogen Therapy Care [...] More... Other instructions from your clinician: [facility] DERMATOLOGY DEPARTMENT Liquid Nitrogen Therapy Care [...] 02/17/18 CNCO Observed: 01/24/2018 Status: COMPLETED Source: [place] 12:00 AM [facility] REPOSITORY HNO ID: [id number] Author: Prakash Gale Service: (none) Author Type: Physician Type: Letter Filed: 01/28/2018 2:50 PM Note Text: January 24, 2018 Slick Erwin M.D. [address] [place] [address] NAME: Dalia Bella CLINIC NO.: [id number] DATE OF SERVICE: 01/24/[address] Erwin: [...] Dalia Bella Date Dictated: 01/24/2018 Date Typed: [facility] 01/25/2018 JOB# [id number] ANES POST Observed: 01/21/2018 Status: COMPLETED Source: [place] 11:10 AM [facility] REPOSITORY HNO ID: [id number] Author: Freddie Noble Service: Anesthesiology Author Type: [...] 21, 2018 TIME: 11:10 AM PAGER/CONTACT #: [phone] NURSING PROG Observed: 01/21/2018 Status: COMPLETED Source: [place] 10:49 AM [facility] REPOSITORY HNO ID: [id number] Author: Coni (Rn) JENNIFER Patel Service: (none) [...] Signed By: Coni Patel RN In Department: [place] [address] BRIEF OP NOT Observed: 01/21/2018 Status: COMPLETED Source: [place] 8:03 AM [facility] REPOSITORY HNO ID: [id number] Author: Ben Gardiner (Fel) Service: Colorectal Author Type: Fellow Type: Brief Op Note Filed: 01/21/2018 8:05 AM Note Text: BRIEF OPERATIVE NOTE - COLORECTAL SURGERY Log ID: [id number] Surgery/Procedure Date: 01/21/2018 Incision/Procedure Start Time: 7:47 AM Incision Close/Procedure End Time: 803am Surgeon(s) and Cto(s): Surgeon(s) and Role: * Prakash Gale - [...] None SIGNATURE: Ben Gardiner MD PATIENT NAME: Dalai Bella DATE: January 21, 2018 TIME: 8:03 AM PAGER/CONTACT #: [phone] Observed: 01/21/2018 Status: COMPLETED Source: [place] 6:33 AM [facility] REPOSITORY HNO ID: [id number] Author: Ana OchoaRnSridhar Leong RN Service: Nursing [...] Signed By: Ana Leong RN In Department: [place] [address] SURGICAL PATHOLOGY Observed: 01/21/2018 Status: F Source: [place] 12:00 AM [facility] REPOSITORY Specimen originated from [facility] Specimen #: [id number] Submitting Physician: PRAKASH GALE ([id number]) FINAL DIAGNOSIS [...] A1. PO/stacy 01/21/2018 Gross examination performed at [facility], [address] [place], [place] [id number] Date of Report: 01/23/2018 Date of Procedure: 01/21/2018 Date of Receipt: 01/21/2018 Submitted by: PRAKASH GALE ([id number]) Location: G031 Diagnostic interpretation performed at [facility], [address] [place] [address]. OPERATIVE NO Observed: 01/21/2018 Status: COMPLETED Source: [place] 12:00 AM [facility] REPOSITORY HNO ID: [id number] Author: Prakash Gale Service: (none) Author Type: Physician Type: Operative Report Filed: 01/24/2018 10:43 AM Note Text: [place] [address] [place] OPERATIVE REPORT NAME: DALIA BELLA [facility] #: [id number] DATE: 01/21/2018 AGE: 42 SURGEON 1: Prakash Gale M.D. SURGEON 2: NETWORK DIRECTOR 1: Dr. Gardiner NETWORK DIRECTOR 2: OPERATION: Examination under anesthetic and fistulotomy. ANESTHESIA: General anesthetic. PREOPERATIVE DIAGNOSIS: Perianal abscess. POSTOPERATIVE DIAGNOSIS: Qaeevne-mb-dpt. OPERATIVE INDICATIONS: Pathology is identified as a [...] BLOOD LOSS: DRAINS: SPECIMENS: Prakash Gale M.D. IL:[id number] /[id number] cc: MAO Observed: 01/20/2018 Status: COMPLETED Source: [place] 2:45 PM [facility] REPOSITORY Office Visit (IMPAMN) DALIA BELLA ([id number]) 1975 F Date Time Provider Department 01/20/18 2:45 PM YAMILKA DORSEY During your visit today, we recorded the following information about you: Temperature Pulse Blood pressure Weight 98.3 degrees 86/minute 107/64 56.2 kg Height 1.524 m Hiral Irizarry LPN 01/20/2018 2:49 PM Signed Dalia Bella is a 42 year old female here today for visit in [facility] Referring Surgeon: Dr. 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 Neuro: No history of TIA's, stroke, FLAKE MILLER WHEAT AND OATS tumor, impaired sensorium, hemiplegia, paraplegia or quadriplegia. No neurological symptoms or problems. Respiratory: URI ANDlt; 2 weeks recovered by itself Cardiovascular: No history of HTN requiring medication, no history of angina, CHF, NM, cardiac surgery or stents. Denies rest pain, [...] dialysis. No history of symptoms or problems. 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 [...] Yamilka Dorsey MD 01/20/2018 2:49 PM Signed [facility] Patient Instructions for Surgery FOOD INSTRUCTIONS: NO [...] please do not hesitate to contact the [facility] at [phone] or [phone], ext [phone]. Signature: Yamilka Dorsey MD Date: January 20, 2018 Referring Provider: PRAKASH GALE [[id number]] Allergies As of Date: 01/20/2018 (No Known [...] FOR* More... Other instructions from your clinician: [facility] Patient Instructions for Surgery FOOD INSTRUCTIONS: NO [...] please do not hesitate to contact the [facility] at [phone] or [phone], ext [phone]. 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 Neuro: No history of TIA's, stroke, FLAKE MILLER WHEAT [employer] OATS tumor, impaired sensorium, hemiplegia, paraplegia or quadriplegia. No neurological symptoms or problems. Respiratory: URI < 2 weeks recovered by itself Cardiovascular: No history of HTN requiring medication, no history of angina, CHF, NM, cardiac surgery or stents. Denies rest pain, [...] dialysis. No history of symptoms or problems. 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 [...] PM PROGRESS Observed: 01/20/2018 Status: COMPLETED Source: [place] 2:04 PM [facility] REPOSITORY HNO ID: [id number] Author: Hiral Irizarry CASCARA BARK CUTTER Service: (none) Author Type: (none) Type: Progress [...] LPN CNOV Observed: 01/20/2018 Status: COMPLETED Source: [place] 1:30 PM [facility] REPOSITORY Office Visit (JASSON) DALIA BELLA ([id number]) 1975 F Date Time Provider Department 01/20/18 1:30 PM PRAKASH GALE During your visit today, we recorded the following information about you: Weight Height Last Period 56.2 kg 1.524 m 01/19/18 Prakash Gale MD [facility] 01/20/2018 2:03 PM Signed HISTORY AND PHYSICAL [...] 2018 1:27 PM Referring Provider: PRAKASH GALE [[id number]] Allergies As of Date: 01/20/2018 (No Known [...] 01/20/18 PROGRESS Observed: 01/20/2018 Status: COMPLETED Source: [place] 1:27 PM [facility] REPOSITORY O ID: [id number] Author: Prakash Gale Service: (none) Author Type: [...] Prior to Admission medications as of 01/01/18 4180 Medication Sig Last Dose Taking fluconazole (DIFLUCAN) [...] METABOLIC PANEL Collected: 01/20/2018 Status: F Source: [place] 12:36 PM [facility]AMPUS REPOSITORY TYPE [...] mg/dL Glucose High 118 Result Comment: The [place] Diabetes Association (ADA) provides guidance for cutoff [...] Standards of Medical Care in Diabetes 2016, [place] Diabetes Association. Diabetes Care. 2016.39(Suppl 1). LAB [...] has been calibrated to be traceable to IDSD. An eGFR <60 mL/min/1.73m2 for >3 months is consistent with chronic kidney disease. Refer to KDOQI guidelines for clinical interpretation. In patients with unstable renal function, e.g. those with acute kidney injury, the eGFR may not accurately reflect actual GFR. Performed By: #### CMP, CBC #### [facility] [address], [place] [address] CBC Collected: 01/20/2018 Status: F Source: [place] 12:36 PM [facility] REPOSITORY TYPE CODE TESTS RESULT OUT [...] <0.01 Performed By: #### CMP, CBC #### [facility] [address], [place] [address] URGENT CARE VISIT Observed: 01/16/2018 Status: F Source: [place]E REPORT 11:24 AM [facility] REPOSITORY Now [address] [address] OFFICE VISIT Date of Service: 01/16/18 MR#: [id number] Acct: [id number] Name: DALIA BELLA Rep #: [id number] : 1975 Provider: Bal SANTOS Age/Sex: 42/F Location: [facility] Status: Signed Intake Vital Signs01/16/18 Height 5 ft 01/16/18 Weight: 124 lb 01/16/18 Body Mass Index (BMI) 24.2 Intake Visit Reasons: Sore throat Chief Complaint: Sore tongue Brake Engineer Required: No Is patient in pain?: No [...] body habitus Orientation: alert, awake, oriented x3 [facility] Head: normal to inspection Ears: hearing [...] the above. This note was generated with [employer] dictation software. It may contain incorrect words, spelling, and punctuation that were not noted in checking the note before signing. Plan Detail Other Medications New: nystatin administer 1/2 of dose in each side of the knr888,000 units (5 mL) buccal Q6H th Coding Level of Care Code Off vis,est,level 3 Diagnoses Sore throat J02.9 Thrush, oral B37.0 01/16/18 1124 <Electronically signed by Bal SANTOS> Date Bal SANTOS [facility] Signature: Date (if applicable) CC: SURGICAL PATHOLOGY Observed: 01/09/2018 Status: F Source: [place] 4:31 PM [facility] REPOSITORY Specimen #: [id number] Submitting Physician: PRAKASH GALE ([id number]) FINAL DIAGNOSIS Skin and soft tissue, perianal, excision - Skin and underlying fibroadipose tissue with acute, chronic and granulomatous inflammation, consistent with abscess. JERRY/JOSÉ MIGUEL/nikita 01/10/18 Jude Obrien M.D. (Electronic Signature) SPECIMEN SUBMITTED A: 3 SLIDES ([id number]) CLINICAL DATA None provided. Date of Report: 01/10/2018 Date of Procedure: 01/09/2018 Date of Receipt: 01/09/2018 Submitted by: PRAKASH GALE (A30) Location: ORMN Diagnostic interpretation performed at [facility], [address] [place], [place] [address] [address]. 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 She agrees to this. I have answered all questions to the patient?s satisfaction and the patient has no further questions. Greater than 50% of this patient encounter was dedicated to face to face discussion with the patient. PROGRESS Observed: 01/01/2018 Status: COMPLETED Source: [place] 1:37 PM [facility] REPOSITORY [facility] ID: [id number] Author: Prakash Gale Service: (none) Author Type: [...] agreement. MAO Observed: 01/01/2018 Status: COMPLETED Source: [place] 12:40 PM [facility] REPOSITORY Office Visit (CORN) DALIA BELAL ([id number]) 1975 F Date Time Provider Department 01/01/18 12:40 PM PRAKASH GALE During your visit today, we recorded the following information about you: Weight Height Last Period 56.7 kg 1.524 m 12/27/17 Prakash Gale MD [facility] 01/01/2018 2:29 PM Addendum Patient previously seen [...] is in agreement. Referring Provider: TALIA ALICEA [[id number]] Allergies As of Date: 01/01/2018 (No Known [...] 01/01/18 HOSP Observed: 01/01/2018 Status: COMPLETED Source: [place] 12:00 AM [facility] REPOSITORY Patient Update (CORSMN) VASILIYDALIA Baum ([id number]) 1975 F Date Time Provider Department 01/01/18 PRAKASH GALE During your visit today, we recorded the following information about you: Allergies As of Date: 01/01/2018 (No Known Allergies) Date Reviewed: 01/01/2018 Reviewed by: Britt (Barbara) BARBARA Prater - Fully Assessed Primary Visit Diagnosis:Anal fistula [K60.3] Order(s):SURGICAL REQUEST - ELECTIVE [[id number]] Order #: [id number]: 1 YA WHAT TO EXPECT DURING YOUR HOSPITAL STAY [6003060] Order #: [id number]: 1 CBC [SQCBC] Order #: [id number] FUTURE COMP METABOLIC PANEL [SQCMP] Order #: [id number] FUTURE REFER FOR ADMIT INTERVIEW [9727975] Order #: [id number] HANDP FOR SURGERY [M1052TKQ] Order #: [id number] CONSULT TO PATIENT EDUCATION [642846] Order #: [id number]: 1 CONSULT TO ANESTHESIOLOGY [9002] Order #: [id number]: 1 CONSULT TO INT MED-IMPACT [7733826] Order #: [id number]: 1 Prescriptions as of 01/01/2018 Sig: GABAPENTIN [...] 01/01/18 HOSP Observed: 01/01/2018 Status: COMPLETED Source: [place] 12:00 AM [facility] REPOSITORY Patient:Dalia Bella MRN: <[id number]> Height:5' 0(1.524 m) Weight:124 lb (56.246 kg) [...] old female here today for visit in [facility] Referring Surgeon: Dr. 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 Neuro: No history of TIA's, stroke, FLAKE MILL[employer] tumor, impaired sensorium, hemiplegia, paraplegia or quadriplegia. No neurological symptoms or problems. Respiratory: URI < 2 weeks recovered by itself Cardiovascular: No history of HTN requiring medication, no history of angina, CHF, NM, cardiac surgery or stents. Denies rest pain, [...] dialysis. No history of symptoms or problems. 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 [...] Yamilka Dorsey MD 01/20/2018 2:49 PM Signed [facility] Patient Instructions for Surgery FOOD INSTRUCTIONS: NO [...] please do not hesitate to contact the [facility] at [phone] or [phone], [phone]. Signature: Yamilka Dorsey MD Date: January 20, 2018 Progress Notes ([facility]): Prakash Gale MD [facility] 01/20/2018 2:03 PM Signed HISTORY AND PHYSICAL [...] Prior to Admission medications as of 01/01/18 014 Medication Sig Last Dose Taking fluconazole (DIFLUCAN) [...] Version CNOV Observed: 12/30/2017 Status: COMPLETED Source: [place] 8:50 AM [facility] REPOSITORY Office Visit (GENSWS) DALIA BELLA ([id number]) 1975 F Date Time Provider Department 12/30/17 8:50 AM TALIA ALICEA During your visit today, we recorded the following information about you: Talia Alicea MD 01/01/2018 6:59 PM Signed Dalia Bella 1975 REFERRING PHYSICIAN: Danielle Mercado (Artificial Breeding Distributor), RIGGING WORKER CHIEF COMPLAINT: Recurrent anal fistula HPI: The [...] children: 3 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 She agrees to this. I have answered [...] METABOLIC PANEL Collected: 12/04/2017 Status: F Source: [place] 11:22 AM [facility] REPOSITORY TYPE CODE TESTS RESULT OUT OF REFERENCE UNITS RANGE LAB TP 6.3-8.0 g/dL Low Protein, Total 6.2 LAB ALB 3.9-4.9 g/dL Low Albumin 3.8 LAB CA 8.5-10.2 mg/dL Calcium, Total 8.9 LAB TBIL 0.2-1.3 mg/dL Bilirubin, Total 0.2 LAB ALKP 32-117 U/L Alkaline Phosphatase 66 LAB AST 13-35 U/L AST 29 LAB GLU 74-99 mg/dL Glucose 93 Result Comment: The [place] Diabetes Association (ADA) provides guidance for cutoff [...] Standards of Medical Care in Diabetes 2016, [place] Diabetes Association. Diabetes Care. 2016.39(Suppl 1). LAB [...] Performed By: #### CMP, TSH, HIV12C #### [facility] [address] [place] [id number] TSH Collected: 12/04/2017 Status: F Source: [place] 11:22 AM [facility] REPOSITORY TYPE CODE TESTS RESULT [...] Clinical Practice Guideline. J Clin Endocrinol Metab, 2012:97:6917-9405. 2. Raheem BREEN. Overview of thyroid disease in . UpToDate. 2016. Accessed on March 30, 2016. Performed By: #### CMP, TSH, HIV12C #### [facility] [address], [place] [address] HIV 12 COMBO (AG/AB) Collected: 12/04/2017 Status: F Source: [place] 11:22 AM [facility] REPOSITORY TYPE CODE TESTS RESULT OUT OF REFERENCE UNITS RANGE LAB HVAGAB Non Reactive HIV Non Reactive 12 Ag/Ab Result Comment: (NOTE) HIV Information: [place] Rev. Code 3701.243(E): This information has been [...] Performed By: #### CMP, TSH, HIV12C #### [facility] [address], [place] [address] PROGRESS Observed: 12/03/2017 Status: COMPLETED Source: [place] 6:25 PM [facility] REPOSITORY HNO ID: [id number] Author: Slick Ocasio) Yaima Service: (none) Author Type: Physician Type: Progress Notes Filed: 12/03/2017 7:04 PM Note Text: Chief Complaint Patient presents with: Mouth/Lip Problem: Thrush with hives HPI Dalia Bella is a 41 year old female who presents here today for above complaint. 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 Advised her to remove dairy from diet [...] EMERGENCY DEPARTMENT Observed: 11/28/2017 Status: F Source: ERIE SUMMARY 11:55 AM [facility] REPOSITORY [facility] Medical Records Department [address] [place] [address] Emergency Department Summary 11/28/17 0956 MR#: [id number] Acct: [id number] Name: DALIA BELLA Rep #: [id number] : 1975 41 From: Caio Cartagena MD [...] unknown etiology This note was generated with [employer] dictation software. It may contain incorrect words, [...] problems, contact your Primary Care Provider. Call [facility] ([phone]) or report to the closest Emergency Room. Call 911 if necessary. 11/28/17 1328 <Electronically signed by Caio Cartagena MD> Date Caio Cartagena MD Cosigner Signature (If Indicated): Date CC: Camila Mercado MD CBC W/DIFF, AUTOMATED Collected: 11/28/2017 Status: F Source: SONIYA 10:02 AM [facility] REPOSITORY TYPE CODE TESTS RESULT OUT OF [...] 0.81 Performed By: #### L100.0100 #### [place] [facility] [address] [place], [address] LIVER PROFILE Collected: 11/28/2017 Status: F Source: SONIYA 10:02 AM [facility] REPOSITORY TYPE CODE TESTS RESULT OUT OF [...] BILI 0.10 Performed By: #### L500.3400 #### [facility] [address] [place], [address] OFFICE VISIT REPORT Observed: 11/26/2017 Status: F Source: SONIYA 11:12 AM [facility] REPOSITORY [facility] [address] [place] [address] OFFICE VISIT Date of Service: 09/19/17 MR#: [id number] Acct: [id number] Patient: DALIA BELLA Rep #: [id number] : 1975 Provider: Bal SANTOS Age/Sex: 41/F Location: [facility] Status: Signed Intake Vital Signs09/19/17 Height 5 ft Intake Visit Reasons: cute on lower left buttock Brake Engineer Required: No Accompanied by: None Allergies No [...] revised perianal abscess in June 2017 by [facility] General Surgeon. Patient notes since having [...] care as instructed today. Recommend follow-up with [facility] general surgery for second opinion; business card from [facility] given to patient for her to make arrangements for follow-up. Patient informed she should obtain medical progress notes from [facility] general surgeon to bring with her for initial evaluation with [facility] general surgeon. Patient states acknowledging understanding all the above. Coding Level of Care Code Off vis,new,level 3 Diagnoses Perianal abscess K61.0 11/26/17 1112 <Electronically signed by Bal SANTOS> Date Bal SANTOS Cosigner Signature: Date (if applicable) CC: URGENT CARE VISIT Observed: 11/25/2017 Status: F Source: SONIYA REPORT 8:34 AM [facility] REPOSITORY [address] [address] OFFICE VISIT Date of Service: 11/25/17 MR#: [id number] Acct: [id number] Name: DALIA BELLA Rep #: [id number] : 1975 Provider: Rogerio SANTOS Age/Sex: 41/F Location: [facility] Status: Signed Intake Vital Signs11/25/17 Height 5 ft 11/25/17 Weight: 123 lb 11/25/17 Body Mass Index (BMI) 24.0 11/25/17 Blood Pressure 96/64 Intake Visit Reasons: RASH/HIVES Brake Engineer Required: No Is patient in pain?: No [...] wheezing Exam Const General: cooperative, healthy appearing [facility] Head: normocephalic, atraumatic Ears: hearing grossly [...] the above. This note was generated with [employer] dictation software. It may contain incorrect words, [...] / CODE REACTION SEVERITY SOURCE 11/03/2018 Drug nystatin/U805039 Hives Unknown [place] [facility] Allergy/416 889(RXNORM) Hospital 348467(SNOM Repository ED CT) 02/10/2018 DRUG NYSTATIN HIVES [facility] INGREDI/419 [address] [place] 528720(SNOM Repository ED CT) 01/16/2018 Drug No Known Unknown [place] [facility] Allergy/416 Allergies/L42116 Hospital 692236(SNOM 0388(RXNORM) Repository ED CT) Drug NO KNOWN [facility] Class/99011 ALLERGIES [place] 1003(SNOMED Repository CT) ENCOUNTERS ENCOUNTERS ADMIT/DISCHARGE ACCOUNT ADMITTING ENCOUNTER LOCATION SOURCE NUMBER CLASS 11/03/2018/11/03/19 [id number] Emergency [address] ing:ED Repository 09/22/2018/09/22/20 [id number] Emergency [address] ing:ED Repository 05/22/2018/05/23/20 [id number] Ambulatory [address] [place] Repository 04/01/2018/04/02/20 [id number] Ambulatory [address] Repository 02/26/2018/02/27/20 [id number] Ambulatory [address] Repository 02/19/2018/02/21/20 [id number] Ambulatory [address] Repository 02/12/2018/02/13/20 [id number] Emergency [address] ing:ED Repository 02/10/2018/02/19/20 [id number] Ambulatory [address] [place] Repository 01/21/2018/01/22/20 [id number] PRAKASH GALE Ambulatory [address] [place] Repository 01/20/2018/01/21/20 [id number] Ambulatory [address] [place] Repository 01/20/2018/01/22/20 [id number] Ambulatory [address] [place] Repository 01/20/2018/01/21/20 [id number] Ambulatory [address] [place] Repository 01/20/2018 [id number] Ambulatory [facility] [place] Repository 01/20/2018/01/21/20 [id number] Ambulatory [address] [place] Repository 01/16/2018/01/17/20 [id number] Ambulatory BMSBuilding:B [place] [address] [place].NOW [facility] Repository 01/01/2018/01/08/20 [id number] Ambulatory [address] Repository 12/30/2017/01/03/20 [id number] Ambulatory [address] Repository 12/04/2017/12/04/19 [id number] Ambulatory [address] Repository 12/03/2017/12/04/19 [id number] Ambulatory [address] Repository 11/28/2017/11/28/19 [id number] Emergency [place] [facility] ing:ED Repository 11/25/2017/11/25/19 [id number] Ambulatory BMSBuilding:B [place] [address] [place].NOW [facility] Repository 09/19/2017/09/19/20 [id number] Ambulatory BMSBuilding:B [place] 17 [place].NOW [facility] Repository PAYERS PAYERS ENCOUNTER GUARANTOR PAYER SUBSCRIBER SOURCE 11/03/2018 DALIA Baum Primary Insurance:[facility] DALIA A [place] [id number] [facility] Number: [id number], [place] [id number] Repository 297[address]Ymg: (330) Date:7123-16-34AE [phone] () [address] [place] [address]UK: 11/03/2018 Secondary NOT GIVENUNK [place] Insurance:SELF PAY [facility] Number: Effective Repository Date:2018-11-03 09/22/2018 DALIA Baum Primary Insurance:[facility] DALIA A [place] [id number] [facility] CenterTDOB: [facility] Number: [id number], [place] [id number] Repository 9[address]Ikb: (330) Date:5921-51-74GZ [phone] () [address] [place] [address] 501[address]WC: 09/22/2018 Secondary NOT GIVENUNK [place] Insurance:SELF PAY [facility] Number: Effective Repository Date:2018-09-22 02/12/2018 DALIA A Primary Insurance:[facility] DALIA A [place] [id number] COMMUNITY PLANPolicy PHILPOTTDOB: Community [place] Number: [id number], [place] [id number] Repository [address]Ogy: (330) Date:5425-64-95HM [phone] () [address] [place] [address]60[address]BP: 02/12/2018 Secondary NOT GIVENUNK [place] Insurance:SELF PAY [facility] Number: Effective Repository Date:2018-02-12 01/16/2018 DALIA A Primary Insurance:[facility] DALIA A [place] [id number] COMMUNITY PLANPolicy PHILPOTTDOB: Community [place] Number: [id number], [place] [id number] Repository [address]Bhm: (330) Date:4689-37-15QH [phone] () [address] [place] [address] 21463VN: 01/16/2018 Secondary NOT GIVENUNK [place] Insurance:SELF PAY [facility] Number: Effective Repository Date:2018-01-16 11/28/2017 DALIA A Primary Insurance:[facility] DALIA A [place] [id number] COMMUNITY PLANPolicy PHILPOTTDOB: Community [place] Number: [id number], [place] [id number] Repository [address]Lzc: (330) Date:4429-71-61ZQ [phone] () [address] [place] [address] 870[address]PD: 11/28/2017 Secondary NOT GIVENUNK [place] Insurance:SELF PAY [facility] Number: Effective Repository Date:2017-11-28 11/25/2017 JOSE A Primary Insurance:[facility] DALIA A [place] [id number] COMMUNITY PLANPolicy PHILPOTTDOB: Community [place]: [id number], [place] [id number] Repository [address]Zav: (330) Date:[id number] [phone] (HP) [address] [place] [id number]: 11/25/2017 Secondary NOT GIVENUNK [place] Insurance:SELF PAY [facility] Number: Effective Repository Date:2017-11-25 09/19/2017 DALIA Ba[place] Primary Insurance:[facility] DALIA Byrnes [id number] [facility] Number: [id number], [place] [id number] Repository 936[address]Kon: ([phone]) Date:[id number] [phone] () [address], [place] [address]BU: 09/19/2017 Secondary NOT GIVENUNK [place] Insurance:SELF PAY [facility] Number: Effective Repository Date:2017-09-19
== END 2018-11-03 13:44 | disposition home or self-care (01) ==
LOC: ED 13:40
PROVIDERS: Emergency Provider Emergency Medicine; Family Provider Family Medicine; PCP Family Medicine
DX: S06.0X0A Concussion without loss of consciousness, initial encounter (principal); S16.1XXA Strain of muscle, fascia and tendon at neck level, initial encounter; W22.8XXA Striking against or struck by other objects, initial encounter; Y93.9 Activity, unspecified; Y92.9 Unspecified place or not applicable; Y99.9 Unspecified external cause status; F32.9 Major depressive disorder, single episode, unspecified; Z72.0 Tobacco use; Z79.899 Other long term (current) drug therapy
CPT/HCPCS: 99282

== ENCOUNTER 2019-03-01 12:01 | Emergency (ER) | payer MEDICAID, SELFPAY ==
[2019-03-01 12:03] VITALS: BP 101/59; PULSE 104; RESP 16; TEMP 36.6; O2SAT 99; BMI 21.7
--- NOTE | 2019-03-01 12:15 | RAD_ITS ---
STUDY: X-RAY - RIGHT HAND REASON FOR EXAM: Female, 43 years old. Pain TECHNIQUE: 3 view(s) of the hand. COMPARISON: None. FINDINGS: Normal radiocarpal articulation. Normal distal radioulnar joint. Normal visualized carpal bones. Normal carpal articulations Normal carpometacarpal articulation of the thumb. Normal second through fifth carpometacarpal joints. Normal metacarpi. Normal metacarpophalangeal joint of the thumb. Normal interphalangeal joint of the thumb. Normal proximal and distal phalanges of the thumb. Normal metacarpophalangeal joints of the second through fifth fingers. Normal proximal and distal interphalangeal joints of the second through fifth fingers. Normal phalanges of the second through fifth fingers. The soft tissue structures are unremarkable. RAD/Hand Min 3 Views IMPRESSION: Normal x-ray examination of the hand. Electronically Signed: Pepito Rashid DO at 13:11 EDT Tel [phone], Service support ,
--- NOTE | 2019-03-01 12:16 | ED.VISSUMM ---
- ER Visit Summary Date of Service: 03/01/19 Chief Complaint: Right hand injury History of Present Illness: The patient is a 43 F who injured her hand 5 days ago. Patient states there was a large can of dog food that fell off of the counter and landed on her hand which was lying flat on the floor. Today the hand is more swollen and painful. She is right-hand dominant. Physical Examination: Vital signs unremarkable. Patient sitting in bedside chair in no acute distress. Right upper extremity examination was mild tenderness and edema over the right hand, worse along the third metacarpal. She is able to make a tight fist. She has normal cap refill distally. Test Results: Right hand x-rays reveal no fracture per my review. Emergency Department Course and Treatment: Patient's hand is placed in Vignesh wrap. She will continue anti-inflammatories at home. Treatment Plan: [] Disposition: Discharge Impression: Crush injury right hand This note was generated with [employer] dictation software. It may contain incorrect words, spelling, and punctuation that were not noted in review of the chart prior to signing ED Disposition - Plan for ED Patient: Disposition: Home or Assisted Living Instructions: ED Crush Injury Finger No Fx Referrals: Cornelius Erwin MD [Primary Care Provider] - 1 Week if not improving
== END 2019-03-01 12:57 | disposition home or self-care (01) ==
PROVIDERS: Emergency Provider Emergency Medicine; Family Provider Family Medicine; PCP Family Medicine
DX: S67.21XA Crushing injury of right hand, initial encounter (principal); W20.8XXA Other cause of strike by thrown, projected or falling object, initial encounter; Y93.9 Activity, unspecified; Y92.9 Unspecified place or not applicable; Y99.9 Unspecified external cause status; K21.9 Gastro-esophageal reflux disease without esophagitis; F32.9 Major depressive disorder, single episode, unspecified; Z72.0 Tobacco use; Z79.899 Other long term (current) drug therapy
CPT/HCPCS: 73130; 99282

== ENCOUNTER → 2019-05-06 10:52 | Outpatient (CLI) | payer MEDICAID, SELFPAY | PROVIDERS: Family Provider Family Medicine; PCP Family Medicine; Referring Provider Nurse Practitioner Primary Care; Visit Provider Nurse Practitioner Primary Care | DX: R55 Syncope and collapse (principal) | CPT/HCPCS: 93225; 93226 ==

== ENCOUNTER 2019-12-13 09:29 | Emergency (ER) | payer MEDICAID, SELFPAY ==
[2019-08-20 11:45] VITALS: BMI 21.7
[2019-12-13 09:30] VITALS: BP 123/68; PULSE 71; RESP 17; TEMP 36.6; O2SAT 100; BMI 21.4
--- NOTE | 2019-12-13 09:38 | ED.VIS.UPPEX ---
History of Present Illness Informant: Patient Occurred: Days - 4 days Context: Gradual Onset Timing: Continuous Quality of Pain: Aching Location: right arm Current Severity: Mild Maximum Severity: Mild Worsened by: nothing Relieved by: nothing Associated Symptoms: Negative for: Parasthesia, Weakness, Loss of Funtion Narrative: 44-year-old female [id number] presents to the emergency department with swelling of her right arm. She had a new tattoo placed 4 days ago and she states that her arm is swollen now for the last 4 days since the tattoo was placed. She denies redness or rash she is not having pain she has not had a fever she has no numbness or tingling. She overall has felt well. She has no history of any medical problems. She has not been using anything [id number] for her symptoms. Tetanus Immunization: Unknown Prior similar symptoms: No Recent Illness/Hospitalization: No <Wilver Mccoy - Last Filed: 12/13/19 09:38> <Caio Cartagena - Last Filed: 12/13/19 10:13> Chief Complaint: Upper Extremity Injury Past Medical History Prior records reviewed: Yes Past Medical History: None Surgical History: no surgical history Lives: With Family Smoking Status: Heavy Smoker (>10/day) Alcohol: Occasional Drugs: None <Wilver Mccoy - Last Filed: 12/13/19 09:38> <Caio Cartagena - Last Filed: 12/13/19 10:13> - Allergies and Home Meds Allergies/Adverse Reactions: Allergies nystatin Allergy (Verified 12/13/19 09:32) Hives Primary Care Physician: Cornelius Erwin MD [Primary Care Provider] - 2 Days for wound check Review of Systems All systems negative except as indicated General: Denies: Chills, Fever Eyes: Denies: Visual changes - bilaterally, Blurred Vision - bilaterally, Diplopia ENT: Denies: Rhinorrhea, Sore throat Cardiovascular: Denies: Chest pain, Palpitations, Heart racing Respiratory: Denies: Dyspnea, Cough, Sputum, Dyspnea on exertion, Orthopnea, Paroxysmal nocturnal dyspnea Gastrointestinal: Denies: Abdominal pain, Nausea, Vomiting, Diarrhea Genitourinary: Denies: Dysuria, Hematuria, Frequency Musculoskeletal: Reports: Swelling. Denies: Myalgias, Arthralgias, Neck pain, Back pain, Extremity Pain Skin: Denies: Rash, Abscess, Abrasions, Wounds Neurological: Denies: Headache, Weakness, Parasthesia, Numbness Hematologic: Denies: Easy bruising, Easy bleeding Allergy: Denies: Uticaria, Swelling of the mouth, Swelling of the tongue <Wilver Mccoy - Last Filed: 12/13/19 09:38> Physical Exam Vital Signs/Narrative: Vital Signs Temp Pulse Resp BP Pulse Ox 12/13/19 09:30 97.9 F 71 17 123/68 H 100 Inital Vital Signs reviewed: Yes Right Humerus: - - Tattoo ranges from right shoulder down to the distal right arm just proximal to the elbow. There is no rash there is no redness it is not warm to touch it is very minimally swollen. She has normal range of motion actively at her shoulder and elbow and wrist. Radial pulse is normal. Capillary refill and sensation of all 5 fingers on the right hand is normal.. Negative for: Abrasion, Contusion, Deformity, Hematoma, Limited ROM General: Well nourished, Well developed Head: Normocephalic, Atraumatic Eyes: Perrl, EOMI ENT: No Trauma, Moist Mucous Membranes Neck: Nontender, Full ROM, Spinal Tenderness, Paraspinal Tenderness Cardiovascular: Regular rate, Regular rhythm, No murmurs Respiratory: No distress, CTA bilaterally, Chest nontender Abdomen: Soft, Nontender, Nondistended, Normal bowel sounds, No masses Back: Nontender Skin: Normal color, No rash, No Trauma Neurological: Alert, Oriented x3, Normal Strength, Normal Sensation, Normal Gait Psychological: Normal affect, Normal Mood <Wilver Mccoy - Last Filed: 12/13/19 09:38> Vital Signs/Narrative: Vital Signs Temp Pulse Resp BP Pulse Ox 12/13/19 09:30 97.9 F 71 17 123/68 H 100 <Caio Cartagena - Last Filed: 12/13/19 10:13> Diagnostic/Tx/Re-eval - Medical Decision Making At this time patient's exam does not show evidence of an acute infection. She has some very mild swelling likely just secondary to the tattoo placement. She is overall well-appearing she is stable vital signs and at this time discussed with her I do not feel she needs antibiotics. She will follow-up with her primary care doctor in the next 2 to 3 days for wound check or if she develops worsening symptoms of infection which we went over she is to return to the emergency department <Wilver Mccoy - Last Filed: 12/13/19 09:38> - Medical Decision Making I performed my own independent history and physical. Patient presents because of swelling to her right upper extremity status post tattoos. She denies fever, chills night sweats. She denies drainage from tattoo sites. She denies warmth or redness to her right upper extremity. She is concerned because of swelling. There is slight swelling of the right upper extremity compared to the left. There is no erythema, warmth, induration or lymphangitis. There is no epitrochlear or axillary lymphadenopathy. Heart is regular without murmur, gallop or rub. Lungs clear to auscultation. Patient was informed there is no evidence of infection, which was a concern of hers. She was informed the swelling is secondary to having multiple tattoos. <Caio Cartagena - Last Filed: 12/13/19 10:13> ED Disposition <Wilver Mccoy - Last Filed: 12/13/19 09:38> <Caio Cartagena - Last Filed: 12/13/19 10:13> - Plan for ED Patient: Disposition: Home or Assisted Living Diagnosis: Visit for wound check Instructions: POST OP WOUND CHECK, General Referrals: Cornelius Erwin MD [Primary Care Provider] - 2 Days for wound check
== END 2019-12-13 10:29 | disposition home or self-care (01) ==
LOC: ED 10:22
PROVIDERS: Emergency Provider Physician Assistant Medical; PCP Family Medicine
DX: M79.89 Other specified soft tissue disorders (principal); L81.8 Other specified disorders of pigmentation; F17.200 Nicotine dependence, unspecified, uncomplicated; Z79.899 Other long term (current) drug therapy; Z88.1 Allergy status to other antibiotic agents
CPT/HCPCS: 99282

== ENCOUNTER 2021-04-17 18:13 | Emergency (ER) | payer MEDICAID, SELFPAY ==
[2021-04-17 18:14] VITALS: BP 123/80; PULSE 109; RESP 16; TEMP 36; O2SAT 93; BMI 21.9
--- NOTE | 2021-04-17 18:34 | EKG12_ITS ---
Test Reason : WEAKNESS Blood Pressure : / mmHG Vent. Rate : 090 BPM Atrial Rate : 090 BPM P-R Int : 166 ms QRS Dur : 094 ms QT Int : 366 ms P-R-T Axes : 073 055 057 degrees QTc Int : 447 ms Normal sinus rhythm Normal ECG Confirmed by ADAIR BAUMAN, MICHEL ([id number]), commissioning editor ANA HOOPER ([id number]) on 04/19/2021 1:56:49 PM Referred By: GENARO Confirmed By:MICHEL BORRERO MD
--- NOTE | 2021-04-17 18:36 | EDS_ITS ---
HPI History of Present Illness Chief Complaint: Fatigue Informant: patient Onset/Context/Timing Onset: Days Context: Gradual Onset Timing: Waxes and wanes Current Severity: Mild Maximum Severity: Moderate Narrative Narrative: Patient presents with feeling sluggish and fatigued over the past week. She states she got earlier this morning and vomited for a couple hours. She went to sleep for 5 hours but still felt sluggish when she got up. She had some mild diarrhea this morning. She had no urinary symptoms. She reports mild chest congestion. No fever or chills have been noted. No one else at home sick. She denies possibility of with having the Essure procedure previously. Past medical history: Chronic neck pain Arthritis GERD Depression PFSH PFSH Home Medications gabapentin 300 mg PO TIDCM 07/28/17 [History Last Taken 11/28/17] sertraline 100 mg PO QHS 07/28/17 [History Last Taken 11/28/17] albuterol sulfate [Ventolin HFA] 1 - 2 puff INHALATION Q4H PRN PRN #1 inhaler 09/22/18 [Rx Last Taken Unknown] amitriptyline 10 mg PO QHS 04/17/21 [History Last Taken Unknown] cyclobenzaprine 10 mg PO QHS 04/17/21 [History Last Taken Unknown] famotidine 20 mg PO BID PRN 04/17/21 [History Last Taken Unknown] ropinirole 0.5 mg PO QHS 04/17/21 [History Last Taken Unknown] Allergy/AdvReac Type Severity Reaction Status Date / Time nystatin Allergy Hives Verified 04/17/21 18:16 Social History Smoking Status: Current every day smoker tobacco type: cigarettes alcohol intake: never ROS ROS ED Constitutional Constitutional ED: Denies chills or fever(s) Eyes Eyes: Denies change in vision ENT ENT ED: Denies sore throat Cardiovascular Cardiovascular: Reports racing heartbeat; Denies chest pain Respiratory/Chest Respiratory/Chest: Denies cough or dyspnea Gastrointestinal Gastrointestinal: Denies abdominal pain, diarrhea, nausea or vomiting Genitourinary Genitourinary ED: Denies dysuria Musculoskeletal Musculoskeletal: Denies back pain Integumentary Denies rash Neurologic Neurologic: Denies headache(s) or weakness Psychiatric Psychiatric: Denies anxiety or depression Endocrine Endocrinology: Denies polydipsia or polyuria Allergic/Immunologic Allergic/Immunologic ED: Denies urticaria EXAM Physical Exam Const Vital Signs: 04/17/21 18:14 04/17/21 20:22 04/17/21 20:41 Temperature 96.8 F L Temperature Source Temporal Pulse Rate 109 H 73 77 Respiratory Rate 16 18 20 H Blood Pressure 123/80 H 95/60 95/60 Blood Pressure Mean 94 71 Pulse Ox 93 97 95 Oxygen Delivery Method Room Air Room Air Positive well nourished and well developed General Appearance ED: well developed HEENT Reports normocephalic and head/scalp atraumatic Eyes PERRL and EOMs intact bilaterally Neck supple Chest Wall inspection of chest normal and palpation of chest normal Resp normal respiratory effort and clear to auscultation bilaterally Cardio regular rhythm Rate: tachycardic GI normal to inspection, nondistended, normoactive bowel sounds Palpation: soft Extremity normal to inspection Neuro oriented x3 and no sensory deficits noted Sensorium / Orientation: alert Motor Exam: strength 5/5 throughout Psych mental status grossly normal Skin no rashes or lesions noted MDM MDM MDM Narrative Medical decision making narrative: Labs, EKG, chest x-ray obtained. Patient is given a liter of IV fluid. Lab Data Attestation: I reviewed the patient's lab results. Labs: Laboratory Results - last 24 hr 04/17/21 04/17/21 04/17/21 18:42 18:42 18:42 WBC 8.9 RBC 4.09 L Hgb 12.7 Hct 39.0 MCV 95.4 MCH 31.1 MCHC 32.6 RDW Std Deviation 46.8 H RDW Coeff of Seven 13.2 Plt Count 302 MPV 8.8 Immature Gran % (Auto) 0.200 Neut % (Auto) 55.3 Lymph % (Auto) 30.5 Brooks % (Auto) 6.9 Eos % (Auto) 5.8 H Baso % (Auto) 1.3 H Absolute Neuts (auto) 4.9 Absolute Lymphs (auto) 2.72 Nucleated RBC % 0 Sodium 143 Potassium 3.5 Chloride 108 H Carbon Dioxide 29.0 Anion Gap 6 BUN 10 Creatinine 1.05 H Estim Creat Clear Calc 49.62 Est GFR (MDRD) Af Amer 73 Est GFR (MDRD) Non-Af 61 BUN/Creatinine Ratio 9.5 L Glucose 116 H Calcium 8.5 TSH 1.18 Serum , Qual NEGATIVE Urine Color Urine Clarity Urine pH Ur Specific [place] Urine Protein Urine Glucose (UA) Urine Ketones Urine Occult Blood Urine Nitrite Urine Bilirubin Urine Urobilinogen Ur Leukocyte Esterase Urine RBC Urine WBC Ur Squamous Epith Cells Amorphous Sediment Urine Bacteria Urine Mucus 04/17/21 19:15 WBC RBC Hgb Hct MCV MCH MCHC RDW Std Deviation RDW Coeff of Seven Plt Count MPV Immature Gran % (Auto) Neut % (Auto) Lymph % (Auto) Brooks % (Auto) Eos % (Auto) Baso % (Auto) Absolute Neuts (auto) Absolute Lymphs (auto) Nucleated RBC % Sodium Potassium Chloride Carbon Dioxide Anion Gap BUN Creatinine Estim Creat Clear Calc Est GFR (MDRD) Af Amer Est GFR (MDRD) Non-Af BUN/Creatinine Ratio Glucose Calcium TSH Serum , Qual Urine Color Yellow Urine Clarity Cloudy Urine pH 8.0 Ur Specific [place] 1.015 Urine Protein Negative Urine Glucose (UA) Normal Urine Ketones Negative Urine Occult Blood 25 H Urine Nitrite Negative Urine Bilirubin Negative Urine Urobilinogen Normal Ur Leukocyte Esterase Negative Urine RBC 0 SEEN Urine WBC 0 SEEN Ur Squamous Epith Cells 0-5 SEEN Amorphous Sediment 1+ Urine Bacteria RARE Urine Mucus 0 SEEN Radiography Chest X-Ray - ED: 1 View, Read by ED Physician, Normal, Heart, Lungs and Mediastinum Diagnostic Testing: Radiology Impression Chest X-Ray 04/17/21 19:22 IMPRESSION: Normal x-ray examination of the chest. Electronically Signed: Chris Stevens MD at 20:35 EDT Tel , Service support , EKG Initial EKG: Attestation: I personally reviewed and interpreted this EKG as follows: Interpretation: Sinus Rhythm (Sinus at 90 with no acute ischemia.) Treatment and Re-Evaluation Comments:: On repeat evaluation patient is resting comfortably. Test results discussed with her. Chest x-ray reveals no acute findings. Lab work is unremarkable and urinalysis shows no sign of acute infection. Covid swab is negative. Patient will continue supportive care at home. Disposition: Discharge Impression: Fatigue Discharge Plan Triage Chief Complaint: Fatigue ED Provider: Rsoe Pozo Dx/Rx/DC Orders Clinical Impression: Fatigue, Generalized weakness Instructions: ED Weakness (Uncertain Cause) Prescriptions: No Action sertraline 100 MG tablet 100 mg PO QHS RF: 0 gabapentin 300 MG capsule 300 mg PO TIDCM RF: 0 albuterol sulfate [Ventolin HFA] 1 INHALER inhaler 1 - 2 puff inhalation Q4H PRN PRN (Reason: Wheezing) Qty: 1 RF: 0 cyclobenzaprine 10 mg tablet 10 mg PO QHS RF: 0 amitriptyline 10 mg tablet 10 mg PO QHS RF: 0 ropinirole 0.5 mg tablet 0.5 mg PO QHS RF: 0 famotidine 20 MG tablet 20 mg PO BID PRN (Reason: Heartburn) RF: 0 Primary Care Provider: Cornelius Erwin Referrals: Cornelius Erwin MD [Primary Care Provider] - 1 Week if not improving Disposition Disposition: Home, Self Care Discharge Date/Time: 04/17/21 20:44
[2021-04-17] MEDS: 0.9% Normal Saline 1,000 ML 1000 ML IV (18:48)
[2021-04-17 18:55] LABS: Absolute Lymphocyte Count 2.72 X10^3/uL (0.83-4.51); Absolute Neutrophil Count 4.9 X10^3/uL (2.0-7.7); Basophil# 0.12 X10^3/uL; Basophil% 1.3 % (0-1); Eosinophil# 0.52 X10^3/uL; Eosinophils% 5.8 % (0-5); Hemoglobin 12.7 g/dL (12.0-15.0); Lymphocyte # 2.72 X10^3/ul (0.83-4.51); Lymphocyte % 30.5 % (19-41); Mean Corp Hgb Conc 32.6 g/dL (32-36); Mean Corpuscular Hgb 31.1 pg (27.0-32.0); Mean Corpuscular Volume 95.4 fL (81-99); Mean Platelet Vol. 8.8 fl (6.2-12.0); Monocyte# 0.62 X10^3/uL; Monocyte% 6.9 % (0-10); NRBC Flagged by Analyzer 0 % (0-5); Neutrophil # 4.93 X10^3/uL (2.7-7.7); Neutrophil % 55.3 % (47-70); Platelet Count 302 K/mm3 (150-450); RBC Distribution Width CV 13.2 % (11.6-14.6); RBC Distribution Width SD 46.8 fl (35.1-43.9); Red Blood Count 4.09 M/mm3 (4.2-5.4); White Blood Count 8.9 K/mm3 (4.4-11.0)
[2021-04-17 19:05] LABS: Internal QC Validated? YES +Cl - CLEAR BKGD; Pregnancy, Serum, hCG Quali. NEGATIVE Negative
[2021-04-17 19:22] LABS: Mucous, Urine 0 SEEN /hpf (<or=2+); Red Blood Cells-Urine 0 SEEN /hpf (0-5); White Blood Cells 0 SEEN /hpf (0-5)
--- NOTE | 2021-04-17 19:22 | RAD_ITS ---
STUDY: X-RAY CHEST REASON FOR EXAM: Female, 45 years old. congestion TECHNIQUE: Single AP portable view of the chest. COMPARISON: 09/22/2018 FINDINGS: The lungs are clear and expanded. There is no demonstrated pleural abnormality. Normal size heart. Normal mediastinum and beau. Normal visualized pulmonary arteries. Normal visualized aortic arch and descending thoracic aorta. Normal visualized thoracic spine. Normal visualized ribs, clavicles, and shoulders. There is no demonstrated abnormality of the visualized soft tissue structures of the upper abdomen. RAD/Chest 1 View (Portable) IMPRESSION: Normal x-ray examination of the chest. Electronically Signed: Chris Stevens MD at 20:35 EDT Tel , Service support ,
[2021-04-17 19:28] LABS: Color, Urine Yellow (Yellow); Glucose, Dipstick Normal (Normal); Ketone-Dipstick Negative (Negative); Leukocyte Esterase-Dipstick Negative /ul (Negative); Nitrite-Dipstick Negative (Negative); Occult Blood-Urine 25 /ul (Negative); Protein-Dipstick Negative (Negative); Specific Gravity, Urine 1.015 (1.002-1.030); Urine Bilirubin Dipstick Negative (Negative); Urine Clarity Cloudy (Clear); Urine Urobilinogen Normal (Normal)
[2021-04-17 19:37] LABS: Anion Gap 6 (5-15); BUN 10 mg/dL (7-18); BUN/Creat Ratio 9.5 RATIO (10-20); Calcium,Total 8.5 mg/dL (8.5-10.1); Chloride 108 mmol/L (98-107); Creatinine, Serum 1.05 mg/dL (0.55-1.02); EST Glomerular Filtration Rate 61 mL/min (>60); Est Glom Filt Rate - Afr Amer 73 mL/min (>60); Estimated Creatinine Clearance 49.62 ml/min; Glucose 116 mg/dL (74-106); Potassium 3.5 mmol/L (3.5-5.1); Sodium Level 143 mmol/L (136-145); Thyroid Stim Hormone (TSH) 1.18 uIU/mL (0.358-3.74)
[2021-04-17 19:40] LABS: Amorphous Sediment 1+; Squamous Epithelial Cells - UA 0-5 SEEN /hpf (5-10)
[2021-04-17 19:41] LABS: Bacteria RARE /hpf (None Seen)
[2021-04-17 20:22] VITALS: BP 95/60; PULSE 73; RESP 18; O2SAT 97
[2021-04-17 20:41] VITALS: BP 95/60; PULSE 77; RESP 20; O2SAT 95
== END 2021-04-17 20:44 | disposition home or self-care (01) ==
PROVIDERS: Emergency Provider Emergency Medicine; PCP Family Medicine
DX: R53.83 Other fatigue (principal); R53.1 Weakness; R11.10 Vomiting, unspecified; R19.7 Diarrhea, unspecified; Z20.822 Contact with and (suspected) exposure to COVID-19; M19.90 Unspecified osteoarthritis, unspecified site; M54.2 Cervicalgia; G89.29 Other chronic pain; K21.9 Gastro-esophageal reflux disease without esophagitis; F32.9 Major depressive disorder, single episode, unspecified; F17.210 Nicotine dependence, cigarettes, uncomplicated; Z79.899 Other long term (current) drug therapy
CPT/HCPCS: 71045; 80048; 81001; 84443; 84703; 85025; 87426; 93005; 96360; 96361; 99284; J7030; A4216

== ENCOUNTER 2021-09-07 17:55 | Emergency (ER) | payer MEDICAID, SELFPAY ==
--- NOTE | 2021-09-07 17:55 | EKG12_ITS ---
Test Reason : CHEST TIGHTNESS Blood Pressure : / mmHG Vent. Rate : 075 BPM Atrial Rate : 075 BPM P-R Int : 158 ms QRS Dur : 088 ms QT Int : 388 ms P-R-T Axes : 073 061 053 degrees QTc Int : 433 ms Normal sinus rhythm Normal ECG Confirmed by FABIAN BAUMAN, LAURIE ([id number]), editor producer DEVAN MACIAS ([id number]) on 09/08/2021 11:48:06 AM Referred By: HARSHA Confirmed By:LAURIE PERALTA MD
[2021-09-07 17:56] VITALS: BP 124/67; PULSE 84; RESP 18; TEMP 35.8; O2SAT 98; BMI 21.5
[2021-09-07] MEDS: Amox/Clavulanate 875 MG Tablet PO (18:46)
[2021-09-07] MEDS: oxyCODONE 5 MG Tablet PO (18:46)
--- NOTE | 2021-09-07 21:26 | EDS_ITS ---
HPI History of Present Illness Chief Complaint: Dental Narrative Narrative: 44-year-old female presenting with dental pain. She states she has a cracked tooth on the right mandible. She was seen at [facility] and has follow-up with a dental professional in October. She has not been given any pain medications or antibiotics. She complains of increasing pain in this area. No fevers or chills. No difficulty swallowing or breathing. No drainage or discharge. PFSH PFSH Medical History Anxiety Back pain Home Medications gabapentin 800 mg PO TIDCM 07/28/17 [History Last Taken 11/28/17] sertraline 100 mg PO QHS 07/28/17 [History Last Taken 11/28/17] albuterol sulfate [Ventolin HFA] 1 - 2 puff INHALATION Q4H PRN PRN #1 inhaler 09/22/18 [Rx Last Taken Unknown] amitriptyline 10 mg PO QHS 04/17/21 [History Last Taken Unknown] cyclobenzaprine 10 mg PO QHS 04/17/21 [History Last Taken Unknown] ropinirole 0.5 mg PO QHS 04/17/21 [History Last Taken Unknown] amoxicillin-pot clavulanate [Augmentin] 1 tab PO BID #20 tab 09/07/21 [Rx Last Taken Unknown] oxycodone-acetaminophen 1 tab PO Q6H PRN PRN 2 Days #6 tablet 09/07/21 [Rx Last Taken Unknown] Allergy/AdvReac Type Severity Reaction Status Date / Time nystatin Allergy Hives Verified 09/07/21 17:57 Social History Smoking Status: Current every day smoker tobacco type: cigarettes alcohol intake: never ROS ROS ED Constitutional Constitutional ED: Denies chills or fever(s) Eyes Eyes: Denies blurry vision or change in vision ENT ENT ED: Reports other Details: Right mandibular dental pain ; Denies rhinorrhea or sore throat Cardiovascular Cardiovascular: Denies chest pain or palpitations Respiratory/Chest Respiratory/Chest: Denies cough or dyspnea Gastrointestinal Gastrointestinal: Denies abdominal pain, nausea or vomiting Genitourinary Genitourinary ED: Denies dysuria or hematuria Musculoskeletal Musculoskeletal: Denies arthralgias or myalgias Integumentary Denies Abrasions or rash Neurologic Neurologic: Denies headache(s) or paresthesias EXAM Physical Exam Const Vital Signs: 09/07/21 17:56 09/07/21 18:05 Temperature 96.4 F L Temperature Source Temporal Pulse Rate 84 Respiratory Rate 18 Respiratory Effort Normal Non-Labored Respiratory Pattern Normal Blood Pressure 124/67 H Blood Pressure Mean 86 Pulse Ox 98 Oxygen Delivery Method Room Air Positive well nourished General Appearance ED: NAD HEENT HEENT Narrative: Tooth with exposed pulp tooth 28. Multiple dental caries. No sublingual edema. Buccal mucosa was normal. Gingiva is nonswollen tender Negative for trauma Teeth and Gingiva: caries and poor dentition Eyes PERRL and EOMs intact bilaterally Neck no lymphadenopathy and supple Lymph Lymphatic: no lymphadenopathy noted Resp normal respiratory effort and clear to auscultation bilaterally Cardio regular rate and regular rhythm Neuro oriented x3 Sensorium / Orientation: alert Psych mental status grossly normal MDM MDM MDM Narrative Medical decision making narrative: Patient has dental pain and likely dental infection. She has a dental fracture Mendez 3 which is old and has been seen by Yesica Khna for initial evaluation and has a procedure coming up through their dental clinic. She request antibiotics due to increasing pain. I did give her pain medication here in the ED and started her on Augmentin. Patient is to continue follow-up with the dental clinic. She is given return p recautions. Impression: 1. Dental fracture 2. Dental caries Discharge Plan Triage Chief Complaint: Dental ED Provider: Idris Grewal Dx/Rx/DC Orders Instructions: ED Dental Cavity Prescriptions: New amoxicillin-pot clavulanate [Augmentin] 875-125 mg tablet 1 tab PO BID Qty: 20 RF: 0 oxycodone-acetaminophen 5-325 mg tablet 1 tab PO Q6H PRN PRN (Reason: pain) 2 Days Qty: 6 RF: 0 No Action sertraline 100 MG tablet 100 mg PO QHS RF: 0 gabapentin 300 MG capsule 800 mg PO TIDCM RF: 0 albuterol sulfate [Ventolin HFA] 1 INHALER inhaler 1 - 2 puff inhalation Q4H PRN PRN (Reason: Wheezing) Qty: 1 RF: 0 cyclobenzaprine 10 mg tablet 10 mg PO QHS RF: 0 amitriptyline 10 mg tablet 10 mg PO QHS RF: 0 ropinirole 0.5 mg tablet 0.5 mg PO QHS RF: 0 Primary Care Provider: Cornelius Erwin Referrals: Cornelius Erwin MD [Primary Care Provider] - Disposition Disposition: Home, Self Care Discharge Date/Time: 09/07/21 18:48
== END 2021-09-07 18:48 | disposition home or self-care (01) ==
LOC: ED 18:35
PROVIDERS: Emergency Provider Student in an Organized Health Care Education/Training Program; PCP Family Medicine
DX: S02.5XXA Fracture of tooth (traumatic), initial encounter for closed fracture (principal); K02.9 Dental caries, unspecified; X58.XXXA Exposure to other specified factors, initial encounter; Y93.9 Activity, unspecified; Y92.9 Unspecified place or not applicable; Y99.9 Unspecified external cause status; M54.9 Dorsalgia, unspecified; F41.9 Anxiety disorder, unspecified; F17.210 Nicotine dependence, cigarettes, uncomplicated; Z79.899 Other long term (current) drug therapy
CPT/HCPCS: 93005; 99284

== ENCOUNTER 2022-01-24 22:59 | Emergency (ER) | payer MEDICAID, SELFPAY ==
[2022-01-24 22:59] VITALS: BP 110/62; PULSE 88; RESP 17; TEMP 36.9; O2SAT 97; BMI 21.4
--- NOTE | 2022-01-24 23:14 | EDS_ITS ---
HPI History of Present Illness Chief Complaint: Head Injury Informant: patient Narrative Narrative: Patient got hit in the head with a screen door about an hour ago. No loss of consciousness. She did not fall to the ground. She had some mild nausea but that is improving. No vomiting. No numbness tingling weakness. No other injury. She states there is a little bit of bleeding on the scalp but it stopped on its own. She has mild soreness really locally but not a diffuse headache. No confusion or balance issues. She is not on any blood thinners including no aspirin. Nothing really makes her symptoms worse. Pressing on it just hurts to the area locally. Time seems to be making her nausea better. [facility] Medical History Anxiety Back pain Home Medications gabapentin 800 mg PO TIDCM 07/28/17 [History Last Taken 11/28/17] sertraline 100 mg PO QHS 07/28/17 [History Last Taken 11/28/17] albuterol sulfate [Ventolin HFA] 1 - 2 puff INHALATION Q4H PRN PRN #1 inhaler 09/22/18 [Rx Last Taken Unknown] amitriptyline 10 mg PO QHS 04/17/21 [History Last Taken Unknown] ropinirole 0.5 mg PO QHS 04/17/21 [History Last Taken Unknown] Allergy/AdvReac Type Severity Reaction Status Date / Time nystatin Allergy Hives Verified 01/24/22 23:02 Social History Smoking Status: Current every day smoker tobacco type: cigarettes alcohol intake: never ROS ROS ED Constitutional Constitutional ED: Denies fever(s) Eyes Eyes: Denies blurry vision or change in vision ENT ENT ED: Reports other Details: See history of present illness. Abrasion/possible laceration to back of head. ; Denies rhinorrhea Cardiovascular Cardiovascular: Denies chest pain or palpitations Respiratory/Chest Respiratory/Chest: Denies dyspnea Gastrointestinal Gastrointestinal: Reports nausea; Denies vomiting Musculoskeletal Musculoskeletal: Denies back pain or neck pain Integumentary Reports Abrasions Neurologic Neurologic: Reports headache(s); Denies paresthesias or weakness Psychiatric Psychiatric: Reports anxiety and depression Endocrine Endocrinology: Denies polydipsia or polyuria Hematologic/Lymphatic Hematologic/Lymphatic: Denies easy bleeding or easy bruising Allergic/Immunologic Allergic/Immunologic ED: Denies urticaria EXAM Physical Exam Const Vital Signs: 01/24/22 22:59 01/24/22 23:47 Temperature 98.4 F Temperature Source Temporal Pulse Rate 88 Respiratory Rate 17 Respiratory Effort Normal Respiratory Depth Normal Blood Pressure 110/62 Blood Pressure Mean 78 Pulse Ox 97 Oxygen Delivery Method Room Air Room Air Positive well nourished and well developed General Appearance ED: well developed; Negative for NAD HEENT Reports TM's clear HEENT Narrative: There is an area of abraded tissue on the posterior occipital scalp just left of center. There could be a laceration but is difficult to see at this time. She has fairly dense hair with a fair amount of blood in the area. This will be cleaned and reexamined. Tympanic Membrane ED: Yes TM's clear Eyes PERRL and EOMs intact bilaterally General Eye ED: Yes other Other Details: No photophobia Neck full ROM General: Negative for tenderness Resp normal respiratory effort Cardio regular rhythm Rate: regular rate GI normal to inspection, nondistended, normoactive bowel sounds and non-tender Palpation: soft Extremity normal to inspection and full ROM General Extremety ED: Negative for deformity or tenderness General Extremity: Negative for deformity Neuro oriented x3 Sensorium / Orientation: alert Psych mental status grossly normal and thought process normal Skin Skin Narrative: See above. MDM MDM MDM Narrative Medical decision making narrative: It took quite a bit of cleaning to see the area. Patient has a lot of very thick hair. I was able to pull through each layer of hair using the back end of a sterile Q-tip. We cleaned in each area as we did this. I was able to finally find a very small laceration that was V shaped. It was about 4 or so millimeters on each end of the V. Its not opening. Its not gaping at all. I cannot get it to open. There is no bleeding. I do not think this warrants a staple as it is a very thin and small flap. I would likely do more damage than benefit. Patient is otherwise doing well. I do not think she needs CAT scan of the head. Tetanus is reportedly up-to-date. We did discuss reasons to return as well as care of the area. She is able to clean this in the shower. She should be gentle. Discharge Plan Triage Chief Complaint: Head Injury ED Provider: Jun Salazar Dx/Rx/DC Orders Clinical Impression: Closed head injury, Laceration of occipital scalp Instructions: ED Head Injury (Adult), ED Laceration Small or ... Prescriptions: No Action sertraline 100 MG tablet 100 mg PO QHS RF: 0 gabapentin 300 MG capsule 800 mg PO TIDCM RF: 0 albuterol sulfate [Ventolin HFA] 1 INHALER inhaler 1 - 2 puff inhalation Q4H PRN PRN (Reason: Wheezing) Qty: 1 RF: 0 amitriptyline 10 mg tablet 10 mg PO QHS RF: 0 ropinirole 0.5 mg tablet 0.5 mg PO QHS RF: 0 Primary Care Provider: Cornelius Erwin Referrals: Cornelius Erwin MD [Primary Care Provider] - 3-5 Days if not improving Disposition Disposition: Home, Self Care
[2022-01-25 00:12] VITALS: PULSE 85; RESP 15; O2SAT 99
== END 2022-01-25 00:13 | disposition home or self-care (01) ==
PROVIDERS: Emergency Provider Emergency Medicine; PCP Family Medicine; Visit Provider Emergency Medicine
DX: S01.01XA Laceration without foreign body of scalp, initial encounter (principal); W22.8XXA Striking against or struck by other objects, initial encounter; R11.0 Nausea; F41.9 Anxiety disorder, unspecified; F17.210 Nicotine dependence, cigarettes, uncomplicated; Z79.899 Other long term (current) drug therapy
CPT/HCPCS: 99282

== ENCOUNTER 2023-01-03 08:52 | Emergency (ER) | payer MEDICAID, SELFPAY ==
[2023-01-03 08:52] VITALS: BP 139/76; PULSE 102; RESP 16; TEMP 36.9; O2SAT 99; BMI 23.0
--- NOTE | 2023-01-03 09:00 | ED.VIS.DENTA ---
HPI History of Present Illness Chief Complaint: Dental Narrative Narrative: 47-year-old female here with dental pain concern specifically for dental abscess. Patient states she woke up this morning with swelling in her face. States has been compliant with oral antibiotics. [facility] Medical History (Updated 01/03/23 @ 11:[address] Kyrie Thomas DO) Anxiety Back pain Restless leg syndrome Home Medications gabapentin 300 mg capsule 800 mg PO TIDCM 07/28/17 [History Last Taken 11/28/17] sertraline 100 mg tablet 100 mg PO QHS 07/28/17 [History Last Taken 11/28/17] albuterol sulfate 90 mcg/actuation aerosol inhaler (Ventolin HFA) 1 - 2 puff inhalation Q4H PRN PRN Wheezing ##1 09/22/18 [Rx Last Taken Unknown] amitriptyline 10 mg tablet 10 mg PO QHS 04/17/21 [History Last Taken Unknown] ropinirole 0.5 mg tablet 0.5 mg PO QHS 04/17/21 [History Last Taken Unknown] clindamycin HCl 300 mg capsule (Cleocin HCl) 300 mg PO Q6H #28 CAPSULES 01/03/23 [Rx Last Taken Unknown] Allergy/AdvReac Type Severity Reaction Status Date / Time nystatin Allergy Hives Verified 01/03/23 08:55 Social History Smoking Status: Current every day smoker tobacco type: cigarettes alcohol intake: never ROS ROS ED ROS Narrative Constitutional: Denies fever HEENT: Denies sore throat, endorses dental pain Neck: Denies neck pain Cardiovascular: Denies chest pain, syncope Respiratory: Denies shortness of breath GI: Denies nausea vomiting or abdominal pain : Denies changes in urinary habits Musculoskeletal: Denies muscle or joint pain Neurologic: Denies numbness weakness or loss of sensation Skin denies rash EXAM Physical Exam Narrative Exam Narrative: Nursing triage notes reviewed, Vital signs reviewed Constitutional: please see mdm HENT: MMM, no pharyngeal edema, exudates. No trismus. No drooling. No submandibular edema. Swelling is approximately 4 x 4 cm in diameter noted to the right lower jaw, mass and abnormality soft, movable, is not associated with the teeth. There is some overlying erythema noted Eyes: Pupils equal round and reactive to light, Extraocular muscles intact Neck: No stridor, no JVD, full neck ROM Lungs: Clear to auscultation, No wheezing or rales. No increased work of breathing, no conversational dyspnea, no accessory muscle use, no nasal flaring. No respiratory distress noted Heart: Regular rate and rhythm, No murmurs, No rubs and No gallops, 2+ distal pulses (radial, femoral, posterior tibial) in all extremities Abdomen: Soft, there is no tenderness, rigidity, rebound or guarding, no obvious peritoneal signs, no palpable pulsatile abdominal masses, no auscultated abdominal bruit : No CVAT Extremities: No edema Neuro: No focal neurological deficits, cranial nerves II through XII intact, 5/5 strength in all extremities. Intact sensation to light touch in all extremities, 2+ reflexes bilateral patella dens. Normal gait. No ataxia. Skin: No rash or lesions noted Const Vital Signs: 01/03/23 08:52 Temperature 98.4 F Temperature Source Temporal Pulse Rate 102 H Respiratory Rate 16 Blood Pressure 139/76 H Blood Pressure Mean 97 Pulse Ox 99 Oxygen Delivery Method Room Air MDM MDM MDM Narrative Medical decision making narrative: Chief Complaint: Dental pain External records reviewed: No recent ED visits or hospitalizations I considered the following differential diagnosis: Dental abscess, Myles's angina, Lemierre's syndrome, pharyngitis, dental caries The patient exam is consistent with Myles's angina, Lemierre's syndrome or evidence of pharyngitis. Patient no evidence of airway compromise or deep neck space infection. No trismus, no drooling, patient speaking full sentences. Dental exam revealed concern for large dental abscess/Christian angina. Performed a CT scan with contrast of the face and sinuses to further elucidate etiology. Also performed labs. Labs were remarkable for leukocytosis suggestive of systemic inflammation. There is no anion gap to suggest end-organ hypoperfusion or sepsis. CT scan showed no evidence of dental abscess, mandibular abscess or Christian's angina. Patient was given clindamycin for further antimicrobial coverage and instructions to follow-up with dentistry at the next available appointment. She was discharged in stable condition. Factors affecting care: History of asthma, anxiety Social determinants of health: Current every day smoker History obtained from others: The patient's significant other Shared decision making: I will have a discussion with the patient and or visitors regarding risk/benefits of further testing or admission. They will be made aware of of the risk/benefits inherent in this decision they will be given the opportunity to voice understanding. Consults: None Lab Data Attestation: I reviewed the patient's lab results. Lab results narrative: CBC shows leukocytosis suggestive of some inflammation, no anemia, no thrombocytopenia BMP without significant electrolyte abnormalities, no anion gap to suggest endorgan hypoperfusion, no acute kidney injury Labs: Laboratory Results - last 24 hr 01/03/23 01/03/23 09:45 09:45 WBC 14.5 H RBC 3.90 L Hgb 12.5 Hct 36.9 L MCV 94.6 MCH 32.1 H MCHC 33.9 RDW Std Deviation 49.1 H RDW Coeff of Seven 14.1 Plt Count 334 MPV 9.0 Sodium 141 Potassium 3.9 Chloride 110 H Carbon Dioxide 27.0 Anion Gap 4 L BUN 11 Creatinine 0.90 Estim Creat Clear Calc 56.70 Est GFR (MDRD) Af Amer 88 Est GFR (MDRD) Non-Af 72 BUN/Creatinine Ratio 12.3 Glucose 98 Calcium 8.7 Radiography Diagnostic Testing: Clinical Impression(s) from Imaging Studies Facial/Sinus 01/03/23 09:22 IMPRESSION: Diffuse soft tissue swelling overlying the left maxillary and left mandibular region suggestive diffuse inflammatory change and cellulitis. No focal abscess collection is seen at this time. Electronically Signed: Smooth Dowell MD at 11:01 EDT Reading Location ID and State: [facility] / [place] , Service support , Discharge Plan Triage Chief Complaint: Dental ED Provider: Kyrie Thomas Dx/Rx/DC Orders Clinical Impression: Cellulitis of face, Dental caries Prescriptions: New clindamycin HCl [Cleocin HCl] 300 mg capsule 300 mg PO Q6H Qty: 28 0RF No Action sertraline 100 MG tablet 100 mg PO QHS gabapentin 300 MG capsule 800 mg PO TIDCM albuterol sulfate [Ventolin HFA] 1 INHALER inhaler 1 - 2 puff inhalation Q4H PRN PRN (Reason: Wheezing) Qty: 1 0RF amitriptyline 10 mg tablet 10 mg PO QHS Label Comments: TAKE 1 TABLET BY MOUTH ONCE DAILY AT BEDTIME ropinirole 0.5 mg tablet 0.5 mg PO QHS Label Comments: TAKE 1 TABLET BY MOUTH ONCE DAILY AT BEDTIME Stand Alone Forms: ED Work / School Excuse Primary Care Provider: Cornelius Erwin Referrals: Cornelius Erwin MD [Primary Care Provider] - Activity Restrictions/Additional Instructions: Please follow-up with your dentist at the next available appointment for further evaluation. Please take antibiotics as prescribed. Please complete entire antibiotic course. Please take Tylenol, ibuprofen every 6 hours as needed for further pain and fever control. Disposition Disposition: Home, Self Care Discharge Date/Time: 01/03/23 11:58
--- NOTE | 2023-01-03 09:22 | CT_ITS ---
STUDY: CT FACIAL BONES WITH CONTRAST REASON FOR EXAM: Female, 47 years old. Right mandibular mass r/o abscess RADIATION DOSAGE (If Supplied By Facility): CTDIvol = ( 29.38 ) mGy, DLP = ( 569.49 ) mGycm TECHNIQUE: The patient was scanned in a multi detector CT scanner. Transaxial imaging was performed following the intravenous administration of IV 100mL [id number]-370. Sagittal and coronal images were reconstructed. Individualized dose optimization techniques were used for this CT. COMPARISON: None. FINDINGS: Diffuse soft tissue swelling overlying the right maxillary region extending into the mandibular region. Diffuse subcutaneous edema. This is suggestive of a diffuse inflammatory change. No bony destruction is seen. No evidence of abscess collection at this time. Normal orbital hackett and orbital contents. Normal nasal bones and anterior nasal spine. Normal facial bones. There is no demonstrated fracture. Normal visualized paranasal sinuses. Findings suggestive of a possible cavity seen in the second to last molar on the right side as well as the second to last and last molars on the left side. CT/Sinus/Facial Bone WITH Contras IMPRESSION: Diffuse soft tissue swelling overlying the left maxillary and left mandibular region suggestive diffuse inflammatory change and cellulitis. No focal abscess collection is seen at this time. Electronically Signed: Smooth Dowell MD at 11:01 EDT ,
[2023-01-03 09:56] LABS: Hematocrit 36.9 % (37-47); Hemoglobin 12.5 g/dL (12.0-15.0); Mean Corp Hgb Conc 33.9 g/dL (32-36); Mean Corpuscular Hgb 32.1 pg (27.0-32.0); Mean Corpuscular Volume 94.6 fL (81-99); Platelet Count 334 K/mm3 (150-450); RBC Distribution Width CV 14.1 % (11.6-14.6); RBC Distribution Width SD 49.1 fl (35.1-43.9); White Blood Count 14.5 K/mm3 (4.4-11.0)
[2023-01-03 10:08] LABS: Anion Gap 4 (5-15); BUN 11 mg/dL (7-18); BUN/Creat Ratio 12.3 RATIO (10-20); Calcium,Total 8.7 mg/dL (8.5-10.1); Chloride 110 mmol/L (98-107); EST Glomerular Filtration Rate 72 mL/min (>60); Est Glom Filt Rate - Afr Amer 88 mL/min (>60); Glucose 98 mg/dL (74-106); Potassium 3.9 mmol/L (3.5-5.1); Sodium Level 141 mmol/L (136-145)
[2023-01-03] MEDS: dexAMETHasone 4 MG/ML Vial IV (10:22)
== END 2023-01-03 11:58 | disposition home or self-care (01) ==
PROVIDERS: Emergency Provider Emergency Medicine; PCP Family Medicine; Visit Provider Emergency Medicine
DX: K04.7 Periapical abscess without sinus (principal); F41.9 Anxiety disorder, unspecified; L03.211 Cellulitis of face; F17.200 Nicotine dependence, unspecified, uncomplicated; K02.9 Dental caries, unspecified; J45.909 Unspecified asthma, uncomplicated
CPT/HCPCS: 70487; 80048; 85027; 96374; 99282; Q9967; A4216